=== PATIENT | male | born 1945 | race Caucasian/White ===

== ENCOUNTER 2020-06-25 10:00 | Day surgery (SDC) | payer MEDICARE, BC, SELFPAY ==
[2020-06-25 10:10] VITALS: BP 140/86; PULSE 74; RESP 16; TEMP 36.2; O2SAT 97
[2020-06-25] MEDS: Tropicam./Phenyleph. (1/2.5%) 5 ML BTL OD ×3 (10:41→10:46)
[2020-06-25] MEDS: Tetracaine 0.5% 4 ML BTL OD (12:03)
[2020-06-25] MEDS: Balanced Salt Soln.-PLUS 500 ML BAG (12:04)
[2020-06-25] MEDS: Moxifloxacin-PF 1 MG/ML VIAL (12:05)
[2020-06-25] MEDS: Lidocaine 2% Jelly 6 ML SYR (12:05)
[2020-06-25] MEDS: Lidocaine 1% Pres-Free 5 ML VIAL (12:05)
[2020-06-25] MEDS: Povidone-Iodine Ophth 30 ML BTL (12:07)
--- NOTE | 2020-06-25 12:23 | PDOC.DSDIS_ITS ---
Discharge Plan Discharge Details Attending Provider: Carl Mcclain Primary Care Provider: Magi Muller [place] Meds and New Rx's Prescriptions: No Action atorvastatin 10 mg tablet 10 mg PO DAILY RF: 0 cyanocobalamin (vitamin B-12) [Cyanacobalamin] 1,000 mcg/mL Solution 100 mcg IM DAILY RF: 0 omeprazole 20 mg capsule,delayed release(DR/EC) 20 mg PO DAILY RF: 0 folic acid 1 mg tablet 1 mg PO DAILY RF: 0 irbesartan 150 mg tablet 150 mg PO DAILY RF: 0 Multivitamin 50 Plus Tablet 1 tab PO DAILY RF: 0 cholecalciferol (vitamin D3) [Vitamin D3] 25 mcg (1,000 unit) Tablet 400 unit PO DAILY RF: 0 aspirin 81 mg Capsule,Delayed Release(Dr/Ec) 81 mg PO DAILY RF: 0 cyanocobalamin (vitamin B-12) 100 mcg Tablet 100 mcg PO DAILY RF: 0 Discharge Instructions Stand Alone Forms: Post-op Topical Cataract, Mya Pichardo (ALEXA)
--- NOTE | 2020-06-25 12:26 | ROE_ITS ---
Date of service: 06/25/20 Time of Service: 12:26 Operative Note Operative Note DATE OF PROCEDURE: 06/25/20 PRE-OP DIAGNOSIS: Nuclear/cortical cataract, right eye POST-OP DIAGNOSIS: same PROCEDURE: Cataract extraction using phacoemulsification with intraocular lens implant, right eye SURGEON: Carl Mcclain ANESTHESIA: MAC and local (sub-tenon's anesthetic infiltration) ESTIMATED BLOOD LOSS: 0 PATHOLOGY: none sent COMPLICATIONS: None Patient was transported to: same day Patient's condition: stable Implants: Raheem and Raheem Vision / [employer] Tecnis ZCB00 intraocular lens Indications: Progressive decreased vision due to cataract, right eye Procedure Description: CATARACT SURGERY OPERATIVE REPORT PREOPERATIVE DIAGNOSIS: Nuclear/cortical cataract, right eye POSTOPERATIVE DIAGNOSIS: Same OPERATION: Cataract extraction using phacoemulsification with posterior chamber intraocular lens implant, right eye. IOL: IOL Intensivist/Model: J&J Vision / PAGE Tecnis ZCB00 IOL Power: + 6.5 diopters IOL Serial Number: [id number] Optic Diameter: 6.0mm Haptic/Overall Diameter: 13.0mm PHACO INFO: Isidro Adhesion Wealth Advisor Solutionsurion Vision System with OZil and Active Fluidics Cumulative Dispersed Energy (CDE): 10.19 seconds SURGEON: Carl Mcclain MD, MARIELENA ANESTHESIA: Monitored Anesthesia Care (MAC), with local sub-tenon's anesthetic infiltration COMPLICATIONS: None SPECIMENS: None INDICATIONS FOR PROCEDURE: The patient is a 75-year-old gentleman with history of high myopia who has developed a significant nuclear and cortical cataract of the right eye. The option of cataract surgery was offered to the patient and he felt he was symptomatic enough that he wished to proceed. PROCEDURE: The correct surgical eye was identified and marked as the right eye and the pupil was dilated in the preoperative area using mydriatics and cycloplegics. The dilated pupil size was 7.0 mm. No oral sedation. The patient was brought to the operating room where cardiopulmonary monitoring was instituted and surgical time-out was performed, confirming the correct operative eye and IOL power. Topical anesthesia was administered and ophthalmic povidone-iodine 5% was instilled into the conjunctival fornices. Lidocaine gel was applied to the cornea and the maciej-ocular area was prepped with Betadine 10% solution and draped in the usual sterile fashion for intraocular surgery, including an aperture drape. A Tegaderm transparent film dressing was cut in half and used to cover the lashes and lid margins. Care was taken to sequester the lashes and lid margins under the Tegaderm dressing. A lid speculum was placed between the lids of the operative eye and the Nora-Kathi operating microscope was maneuvered into position. Adi scissors were then used to make a conjunctival buttonhole approximately 6mm posterior to the limbus in the inferonasal quadrant. Blunt dissection was carried out to expose bare sclera, and a blunt-tipped sub-tenon?s anesthesia cannula was introduced and passed posteriorly along the globe where non- preserved plain lidocaine was injected into posterior sub-Tenon?s space. A sideport knife was used to make a paracentesis port inferiortemporally. Intraocular phenylephrine/lidocaine was injected into the anterior chamber. The anterior chamber was then filled with Healon Pro. A 2.4mm keratome knife was used to create a half-thickness groove at the limbus and then to construct a three-plane near-clear corneal tunnel extending 2.0mm into clear cornea in the superiortemporal position. . A flap was raised on the anterior capsule and capsulorhexis forceps were used to complete a continuous curvilinear capsulorhexis of 5.0 mm. The anterior chamber was noted quite deep with a thin capsule. Balanced salt solution was then used to perform cortical cleaving hydrodissection and nuclear hydrodelineation until the lens could be freely rotated within the capsular bag. The lens nucleus was then disassembled and removed within the capsular bag and iris plane using phacoemulsification. Residual cortical material was removed using the I/A handpiece. The posterior capsule was carefully polished to remove as much residual lens epithelial cells as safely possible. The capsular bag was then inflated and the anterior chamber deepened with viscoelastic. The lens implant described above was inserted into the capsular bag using the PAGE [place] Injector. A Kuglen hook was used to di al the IOL into position. Residual viscoelastic was then removed first from posterior to the IOL, then from the anterior chamber using the I/A handpiece. The lens implant was noted to center nicely within the capsular bag. The incisions were stromally hydrated, and the anterior chamber was reformed using BSS. Then 0.5cc of moxifloxacin 1.0mg/ml were injected into the capsular bag and anterior chamber. The incisions were checked with a Weck spear and found to be secure. Several drops of ophthalmic povidone-iodine 5% were then applied to the eye followed by two drops of Imprimis combination prednisolone/moxifloxacin/nepafenac solution. The drapes were removed and a clear plastic protective eye shield was placed over the eye. The patient was then returned to Same Day Surgery in stable condition.
== END 2020-06-25 12:45 ==
LOC: SUR 10:02
PROVIDERS: PCP Nurse Practitioner Family; Visit Provider Ophthalmology
PROC: (CPT 66984; principal; 2020-06-25 13:30)
DX: H25.011 Cortical age-related cataract, right eye (principal); E78.00 Pure hypercholesterolemia, unspecified
CPT/HCPCS: 66984; V2632

== ENCOUNTER 2020-07-09 06:53 | Day surgery (SDC) | payer MEDICARE, BC, SELFPAY ==
[2020-07-09 07:00] VITALS: BP 124/83; PULSE 73; RESP 18; TEMP 36.3; O2SAT 97
[2020-07-09] MEDS: Tropicam./Phenyleph. (1/2.5%) 5 ML BTL OS ×3 (07:00→07:13)
--- NOTE | 2020-07-09 08:18 | PDOC.DSDIS_ITS ---
Discharge Plan Disposition Patient Disposition: HOME Condition: Good Discharge Details Attending Provider: Carl Mcclain Primary Care Provider: Magi Muller [place] Meds and New Rx's Prescriptions: No Action atorvastatin 10 mg tablet 10 mg PO DAILY RF: 0 cyanocobalamin (vitamin B-12) [Cyanacobalamin] 1,000 mcg/mL Solution 100 mcg IM DAILY RF: 0 omeprazole 20 mg capsule,delayed release(DR/EC) 20 mg PO DAILY RF: 0 folic acid 1 mg tablet 1 mg PO DAILY RF: 0 irbesartan 150 mg tablet 150 mg PO DAILY RF: 0 Multivitamin 50 Plus Tablet 1 tab PO DAILY RF: 0 cholecalciferol (vitamin D3) [Vitamin D3] 25 mcg (1,000 unit) Tablet 400 unit PO DAILY RF: 0 aspirin 81 mg Capsule,Delayed Release(Dr/Ec) 81 mg PO DAILY RF: 0 cyanocobalamin (vitamin B-12) 100 mcg Tablet 100 mcg PO DAILY RF: 0 Discharge Instructions Stand Alone Forms: Post-op Topical Cataract, Mya Pichardo (DSU) Discharge Orders Discharge Orders: Discharge Order (Routine); Ordered 07/09/20 Ordered By: Carl Mcclain DS: Diagnosis Discharge Diagnosis (1) Nuclear sclerotic cataract of left eye: Status: Resolved (2) Cortical cataract of left eye: Status: Resolved
[2020-07-09] MEDS: Balanced Salt Soln.-PLUS 500 ML BAG (08:33)
[2020-07-09] MEDS: Lidocaine 1% Pres-Free 5 ML VIAL (08:34)
[2020-07-09] MEDS: Lidocaine 2% Jelly 6 ML SYR (08:34)
[2020-07-09] MEDS: Moxifloxacin-PF 1 MG/ML VIAL (08:35)
[2020-07-09] MEDS: Povidone-Iodine Ophth 30 ML BTL (08:36)
--- NOTE | 2020-07-09 08:57 | ROE_ITS ---
Date of service: 07/09/20 Time of Service: 08:57 Operative Note Operative Note DATE OF PROCEDURE: 07/09/20 PRE-OP DIAGNOSIS: Nuclear/cortical cataract, left eye POST-OP DIAGNOSIS: same PROCEDURE: Cataract extraction using phacoemulsification with intraocular lens implant, left eye SURGEON: Carl Mcclain ANESTHESIA: MAC and local (sub-tenon's anesthetic infiltration) PATHOLOGY: none sent COMPLICATIONS: None Patient was transported to: same day Patient's condition: stable Implants: Raheem and Raheem Vision / [employer] Tecnis ZCB00 Indications: Progressive decreased vision due to cataract, left eye Procedure Description: CATARACT SURGERY OPERATIVE REPORT PREOPERATIVE DIAGNOSIS: Nuclear/cortical cataract, left eye POSTOPERATIVE DIAGNOSIS: Same OPERATION: Cataract extraction using phacoemulsification with posterior chamber intraocular lens implant, left eye. IOL: IOL Agricultural Extension Officer/Model: J&J Vision / PAGE Tecnis ZCB00 IOL Power: + 8.5 diopters IOL Serial Number: [id number] Optic Diameter: 6.0mm Haptic/Overall Diameter: 13.0mm PHACO INFO: Isidro onefinestayurion Vision System with OZil and Active Fluidics Cumulative Dispersed Energy (CDE): 13.42 seconds SURGEON: Carl Mcclain MD, MARIELENA ANESTHESIA: Monitored Anesthesia Care (MAC), with local sub-tenon's anesthetic infiltration COMPLICATIONS: None SPECIMENS: None INDICATIONS FOR PROCEDURE: The patient is a 75-year-old gentleman with history of diminished visual acuity in both eyes secondary to the development of bilateral nuclear and cortical cataract. He has already undergone cataract surgery in his right eye and is doing well postoperatively. He now presents for cataract surgery in the left eye. PROCEDURE: The correct surgical eye was identified and marked as the left eye and the pupil was dilated in the preoperative area using mydriatics and cycl oplegics. The dilated pupil size was 7.0 mm. The patient chose to have no oral sedation. The patient was brought to the operating room where cardiopulmonary monitoring was instituted and surgical time-out was performed, confirming the correct operative eye and IOL power. Topical anesthesia was administered and ophthalmic povidone-iodine 5% was instilled into the conjunctival fornices. Lidocaine gel was applied to the cornea and the maciej-ocular area was prepped with Betadine 10% solution and draped in the usual sterile fashion for intraocular surgery, including an aperture drape. A Tegaderm transparent film dressing was cut in half and used to cover the lashes and lid margins. Care was taken to sequester the lashes and lid margins under the Tegaderm dressing. A lid speculum was placed between the lids of the operative eye and the Nora-Kathi operating microscope was maneuvered into position. Adi scissors were then used to make a conjunctival buttonhole approximately 6mm posterior to the limbus in the inferonasal quadrant. Blunt dissection was carried out to expose bare sclera, and a blunt-tipped sub-tenon?s anesthesia cannula was introduced and passed posteriorly along the globe where non- preserved plain lidocaine was injected into posterior sub-Tenon?s space. A sideport knife was used to make a paracentesis port superior/superiortemporally. Intraocular phenylephrine/lidocaine was injected into the anterior chamber. The anterior chamber was then filled with Healon Pro. A 2.4mm keratome knife was used to create a half-thickness groove at the limbus and then to construct a three-plane near-clear corneal tunnel extending 2.0mm into clear cornea in the temporal position. . A flap was raised on the anterior capsule and capsulorhexis forceps were used to complete a continuous curvilinear capsulorhexis of 5.0 mm. Apligraf to be quite thin with a deep anterior chamber. Balanced salt solution was then used to perform cortical cleaving hydrodissection and nuclear hydrodelineation until the lens could be freely rotated within the capsular bag. The lens nucleus was then disassembled and removed within the capsular bag and iris plane using phacoemulsification. Residual cortical material was removed using the 45-degree angled silicone I/A tip with 0.3mm port. The posterior capsule was carefully polished to remove as much residual lens epithelial cells as safely possible. The capsular bag was then inflated and the anterior chamber deepened with viscoelastic. The lens implant described above was inserted into the capsular bag using the PAGE [place] Injector. A Kuglen hook was used to dial the IOL into position. Residual viscoelastic was then removed first from posterior to the IOL, then from the anterior chamber using the I/A handpiece. The lens implant was noted to center nicely within the capsular bag. The incisions were stromally hydrated, and the anterior chamber was reformed using BSS. Then 0.5cc of moxifloxacin 1.0mg/ml were injected into the capsular bag and anterior chamber. The incisions were checked with a Weck spear and found to be secure. Several drops of ophthalmic povidone-iodine 5% were then applied to the eye followed by two drops of Imprimis combination prednisolone/moxifloxacin/nepafenac solution. The drapes were removed and a clear plastic protective eye shield was placed over the eye. The patient was then returned to Same Day Surgery in stable condition.
== END 2020-07-09 09:14 | disposition home or self-care (01) ==
PROVIDERS: PCP Nurse Practitioner Family; Visit Provider Ophthalmology
PROC: (CPT 66984; principal; 2020-07-09 09:30)
DX: H25.12 Age-related nuclear cataract, left eye (principal); K21.9 Gastro-esophageal reflux disease without esophagitis
CPT/HCPCS: 66984; V2632

== ENCOUNTER → 2024-03-04 08:11 | Outpatient (BNVA) | payer MEDICARE, BC, SELFPAY | PROVIDERS: PCP Physician Assistant; Referring Provider Physician Assistant; Visit Provider Podiatrist | DX: L84 Corns and callosities (principal); M79.672 Pain in left foot; M20.42 Other hammer toe(s) (acquired), left foot | CPT/HCPCS: 17110; 99203 ==

== ENCOUNTER → 2024-03-17 02:16 | Outpatient (CLI) | payer MEDICARE, BC, SELFPAY ==
--- NOTE | 2024-03-17 08:23 | DI.RAD_ITS ---
Exam(s) XR FOOT LT COMPLETE EXAM: XR FOOT LT COMPLETE CLINICAL HISTORY: Left toe pain,HAMMERTOE LT FOOT, M20.42. TECHNIQUE: 2D digital imaging was performed. Three views. COMPARISON: No exams were available for comparison FINDINGS: BONES: No acute fracture is present. No bony destructive lesion is seen. JOINTS: No dislocation present. Minimal degenerative changes. SOFT TISSUE: Normal. IMPRESSION: Minimal degenerative changes. DATA REPOSITORY: RADIATION DOSE DELIVERED:
== END ==
PROVIDERS: PCP Physician Assistant; Visit Provider Podiatrist
DX: M20.42 Other hammer toe(s) (acquired), left foot (principal)
CPT/HCPCS: 73630

== ENCOUNTER → 2024-04-08 08:44 | Outpatient (BNVA) | payer MEDICARE, BC, SELFPAY | PROVIDERS: PCP Physician Assistant; Referring Provider Physician Assistant; Visit Provider Podiatrist | DX: M20.42 Other hammer toe(s) (acquired), left foot (principal); L84 Corns and callosities; M79.672 Pain in left foot; Z01.818 Encounter for other preprocedural examination | CPT/HCPCS: 99214 ==

== ENCOUNTER 2024-04-08 16:23 | Outpatient (CLI) | payer MEDICARE, BC, SELFPAY ==
[2024-04-08 10:35] LABS: Abs Immature Grans 0.03 10^3/uL (0.0-0.06); Absolute Basophil Count 0.03 10^3/uL (0.0-0.2); Absolute Eosinophil Count 0.21 10^3/uL (0.0-0.7); Absolute Lymphocyte Count 1.37 10^3/uL (1.2-3.4); Absolute Monocyte Count 0.63 10^3/uL (0.1-0.8); Absolute Neutrophil Count 4.41 10^3/uL (1.2-6.7); Basophils % 0.4 %; Eosinophils % 3.1 %; HCT 49.1 % (40.0-50.0); HGB 16.4 g/dL (13.5-17.5); Immature Grans % 0.4 %; Lymphocytes % 20.5 %; MCH 32.5 pg (27.0-33.0); MCHC 33.4 % (32.0-36.0); MCV 97 fL (80-95); MPV 10.9 fL (8.0-11.0); Monocytes % 9.4 %; Neutrophils % 66.2 %; Platelet Count 184 10^3/uL (130-400); RBC 5.04 10^6/uL (4.36-5.78); RDW 12.1 % (11.8-14.1); RDW-SD 43.4 fL; WBC 6.68 10^3/uL (4.4-10.8)
[2024-04-08 10:54] LABS: ALT 72 U/L (16-63); AST 31 U/L (15-37); Albumin 3.6 g/dL (3.4-5.0); Alkaline Phosphatase 100 U/L (46-116); Anion Gap 11.8 mmol/L (3-11); BUN 14 mg/dL (7-18); Bilirubin, Total 0.48 mg/dL (0.2-1.0); CO2 23.2 mmol/L (21.0-32.0); Calcium 9.7 mg/dL (8.5-10.1); Chloride 106 mmol/L (98-107); Estimated GFR 75.61 (mL/min/1.73m2); Glucose 100 mg/dL (74-106); Potassium 4.1 mmol/L (3.5-5.1); Sodium 141 mmol/L (136-145)
--- OUTSIDE RECORDS SUMMARY | 2024-04-08 16:27 | XMS_ITS | Encounter Summary ---
Author Organization [facility] [place] [address] Care Team Providers Care Economics Teacher Name Role Phone Nick Woodard MD Primary Care Provider [phone] Encounter Details Date Type Department Care Team (Late st Contact Info) Description 04/07/2014 11:00 AM EDT [place] [phone] Benign neoplasm of prostate (Primary Dx); Elevated PSA Social History Tobacco Use Types Packs/Day Years Used Date Smoking Tobacco: Former Cigarettes Q uit: 02/20/1976 Smokeless Tobacco: Never Alcohol Use Standard Drinks/Week Comments Yes 7 (1 standard drink = 0.6 oz pur e alcohol) Sex and Gender Information Value Date Recorded Sex Assigned at Male 02/15/2021 9:07 AM EDT Gender Identity Male 02/15/2021 9:07 AM EDT Sexual Orientation Straight 02/15/2021 9: 07 AM EDT documented as of this encounter Last Filed Vital Signs Vital Sign Reading Time Taken Comments Blood Pressure 118/80 04/07/2014 10:57 AM EDT Pulse - - Temperature - - Respiratory Rate 16 04/07/2014 10:57 AM EDT Oxygen Saturation - - Inhaled Oxygen Concentration - - Weight 93 kg (205 lb) 04/07/2014 10:57 AM EDT Height 175.3 cm (5' 9) 04/07/2014 10:57 AM EDT Body Mass Index 30.27 04/07/2014 10:57 AM EDT documented in this encounter Progress Notes * Leno Ellis, KOKO - 04/07/2014 11:28 AM EDT Patient presents today for a voiding trial and catheter removal s/p LAPAROSCOPIC PROSTATECTOMY, ROBOTICS ASSISTED. The patient was given Ciprofloxacin 500mg 1 by mouth. All incisions well approximated. No signs of infection noted. Procedure: 85ml normal saline instilled via rivera catheter. Balloon deflated. Rivera gently removed. Patient voided 85 ml's. FOS good. Good control. Kegals practiced at this time. All instructions and literature reviewed with patient. Patient verbalized understanding of instructions. Supplies given: 2 mens guard pads and 2 mens guard depends underwear. PVR: 00cc measured in the supine position with the bladder scanner shortly after the patient had voided. LENO ELLIS LPN documented in this encounter Plan of Treatment Upcoming Encounters Date Type Department Care Team (Late st Contact Info) Description 06/17/2024 10:20 AM EDT Office Visit Dermatology at [facility] [address] [place] [address] Nick Whiteside MD [facility] [address] [place] [address] documented as of this encounter Results * PSA (07/14/2014 10:04 AM EST) Prostate Specific Antigen (Ultrasensitiv e) <0.03 0.00 - 4.00 ng/mL SHEELA LEHMAN Blood specimen (specimen) 07/14/2014 10:04 AM EST 07/14/2014 10:37 AM EST Narrative Resulting Agency Comment Spec In Lab Donaldo Paulson MD CHEMISTRY ORDERABLES [facility] [place] documented in this encounter Visit Diagnoses Diagnosis Benign neoplasm of prostate- Primary Elevated PSA Elevated prostate specific antigen (PSA) documented in this encounter Care Teams Economics Teacher Relationship Specialty Start Date End Date Nick Woodard MD [address] [place] [phone] PCP - General 07/26/10 11/19/22 documented as of this encounter
--- OUTSIDE RECORDS SUMMARY | 2024-04-08 16:27 | XMS_ITS | Encounter Summary ---
Author Organization [facility] [place] [address] Care Team Providers Care Field Service Tech Name Role Phone Nick Woodadr MD Primary Care Provider [phone] Encounter Details Date Type Department Care Team (Late st Contact Info) Description 12/11/2014 [place] [address] Donaldo Paulson MD [facility] [place] [address] Elevated PSA Social History Tobacco Use Types [...] AM EDT documented as of this encounter Plan of Treatment Upcoming Encounters Date Type Department Care Team (Late st Contact Info) Description 06/17/2024 10:20 AM EDT Office Visit Dermatology at [facility] [address] [place] [phone] Nick Whiteside MD [facility] [address] [place] [address] documented as of this encounter Results * PSA (12/14/2014 12:08 PM EDT) Prostate Specific Antigen (Ultrasensitiv e) <0.03 0.00 - 4.00 ng/mL SHEELA ARCHIEAIRAM Blood specimen (specimen) 12/14/2014 12:08 PM EDT 12/14/2014 12:36 PM EDT Narrative Resulting Agency Comment Spec In Lab Donaldo Paulson MD CHEMISTRY ORDERABLES [facility] documented in this encounter Visit Diagnoses Diagnosis Elevated PSA Elevated prostate specific antigen (PSA) documented in this encounter Care Teams Field Service Tech Relationship Specialty Start Date End Date Nick Woodard MD [address] [place] [phone] PCP - General 07/26/10 11/19/22 documented as of this encounter
--- OUTSIDE RECORDS SUMMARY | 2024-04-08 16:27 | XMS_ITS | Encounter Summary ---
Author Organization [facility] [place] [address] Care Team Providers Care Technical Account Executive Name Role Phone Nick Woodard MD Primary Care Provider [phone] Encounter Details Date Type Department Care Team (Late st Contact Info) Description 05/03/2021 Telephone Dermatology at [facility] [address] [place] [phone] Armando Alvaerz MD [facility] [address] [place] [address] Social History Tobacco Use Types Packs/Day Years [...] AM EDT documented as of this encounter Miscellaneous Notes * Telephone Encounter - Arlene Lal LPN - 05/03/2021 8:52 AM EDT Mohs consultation and preoperative note (H&P) Patient Name: Sai Bailey Age: 76 y.o. Date of : 1945 Today's Date: 05/03/2021 REFERRING PROVIDER: Yoly Gomez MD CC: Mohs micrographic surgery for treatment of a cutaneous tumor HPI: Sai Bailey is a 76 y.o. male presenting for biopsy-proven Basal cell carcinoma, nodular type, ??present at the deep specimen edge location on the Right Forehead. The dermatologic preoperative information sheet was reviewed with pertinent positive and negative as below. DERMATOLOGIC PRE-OPERATIVE EVALUATION AND REVIEW OF SYSTEMS Has had his Vaccine History of Mohs surgery-No Pacemaker/Defibrillator-No Joint replacement or other implantable devices (e.g. Cochlear implant)-No Do you take a blood thinner- Yes ASA 81mg History of organ transplant-No History of artificial valve or stroke-No History of liver disease or bleeding disorder -No Do you have any medical problems that may affect your upcoming surgery-No Do you have any concerns regarding your upcoming surgery-No We ask patients to discontinue Fish oil/Multivitamin/Vit E/?? supplements and natural medicines not prescribed by a physician 1 week prior to surgery. SOCIAL HISTORY: Makes Own Decisions -Yes Hearing aid or other devices: No Relevant travel history or future plans: Tobacco use (amount per day, type of tobacco):No Do you have any physical limitations that may affect your surgery-No ALLERGIES: Allergies reviewed MEDICATIONS: Medications reviewed documented in this encounter Plan of Treatment Upcoming Encounters Date Type Department Care Team (Late st Contact Info) Description 06/17/2024 10:20 AM EDT Office Visit Dermatology at [place] [address] [place] [address] Nick Whiteside MD [facility] [place] [address] documented as of this encounter Visit Diagnoses Not on filedocumented in this encounter Care Teams Technical Account Executive Relationship Specialty Start Date End Date Nick Woodard MD [address] [place] [phone] PCP - General 07/26/10 11/19/22 documented as of this encounter
--- OUTSIDE RECORDS SUMMARY | 2024-04-08 16:27 | XMS_ITS | Clinical Summary ---
Author Organization [facility] Address [facility] [place] [address] Care Team Providers Care Mission Systems Engineer Name Role Phone Luis Carlos Del Real MD Primary Care Provider [phone] Allergies No known active allergies Medications Medication Sig Dispensed Refills Start Date End Date Status irbesartan (AVAPRO) 150 mg tablet Take 150 mg by mouth once. Active omeprazole (PRILOSEC) 20 mg capsule Take 20 mg by mouth daily. Active atorvastatin (LIPITOR) 10 mg tablet Take 10 mg by mouth daily. Active folic acid (FOLVITE) 1 mg tablet Take 1 mg by mouth daily. Active aspirin 81 mg EC tablet Take 81 mg by mouth daily. Active cyanocobalamin 1,000 mcg tablet Take 1,000 mcg by mouth daily. Active multivitamin capsule Take 1 capsule by mouth daily. Active cholecalciferol, Vitamin D3, (VITAMIN D) 1,000 unit Tab tablet Take by mouth daily. Active mirabegron (Myrbetriq) 50 mg Tablet Sustained Release 24 hr Take by mouth. Active Social History Tobacco Use Types Packs/Day Years [...] Orientation Straight 02/15/2021 9: 07 AM EDT Last Filed Vital Signs Vital Sign Reading Time Taken Comments Blood Pressure 117/70 04/20/2015 11:48 AM EDT Pulse 65 04/20/2015 11:48 AM EDT Temperature 37.1 ??C (98.8 ??F) 03/31/2014 9:48 AM ED T Respiratory Rate 16 04/07/2014 10:57 AM EDT Oxygen Saturation 99% 12/14/2014 1:13 PM EDT Inhaled Oxygen Concentration - - Weight 95.3 kg (210 lb) 04/20/2015 11:48 AM EDT Height 175.3 cm (5' 9) 04/20/2015 11:48 AM EDT Body Mass Index 31.01 04/20/2015 11:48 AM EDT Plan of Treatment Upcoming Encounters Date Type Department Care Team (Late st Contact Info) Description 06/17/2024 10:20 AM EDT Office Visit Dermatology at [facility] [address] [place] [phone] Nick Whiteside MD [facility] [address] [place] [address] Health Maintenance Due Date Last Done Comments Tdap adult 1962 Tetanus vaccine 1962 Zoster vaccine (1 of 2) 1993 Advance Directive 1998 Pneumoccocal Vaccine: 65+ (1 of 1 - PCV) 02/25/2008 Covid-19 Vaccine (4 - season) 2023 07/09/2021, 11/15/2020, 10/18/2020 Influenza (Flu) vaccine (1 o f 1 - Influenza standard series) 05/04/2024 Advance Directives * Full Code (Latest Code Status on File) Date Activated Date Inactivated Comments 03/30/2014 1:50 PM 03/31/2014 1:55 PM Question Answer Comments Order Status: Initial Order Does patient have decision m aking capacity? Yes, Order is based on Patients wishes. Care Teams Mission Systems Engineer Relationship Specialty Start Date End Date Luis Carlos Del Real MD [address] [place] [address] PCP - General Internal Medicine 11/20/22
--- OUTSIDE RECORDS SUMMARY | 2024-04-08 16:27 | XMS_ITS | Encounter Summary ---
Author Organization [facility] [place] [address] Care Team Providers Care Boiler Control Room Operator Name Role Phone Luis Carlos Del Real MD Primary Care Provider Encounter Details Date Type Department Care Team (Latest Contact Info) Description 01/20/2023 Travel Social History Tobacco Use Types Packs/Day Years [...] 10:20 AM EDT Office Visit Dermatology at [facility] [address] [place] [address] Nick Whiteside MD [facility] [address] [place] [address] documented as of this encounter Visit Diagnoses Not on filedocumented in this encounter Care Teams Boiler Control Room Operator Relationship Specialty Start Date End Date Luis Carlos Del Real MD [address] [place] [address] PCP - General Internal Medicine 11/20/22 documented as of this encounter
--- OUTSIDE RECORDS SUMMARY | 2024-04-08 16:27 | XMS_ITS | Encounter Summary ---
Author Organization [facility] [place] [address] Care Team Providers Care Ship'S Cook Name Role Phone Luis Carlos Del Real MD Primary Care Provider [phone] Encounter Details Date Type Department Care Team (Latest Contact Info) Description 04/03/2023 Travel Social History Tobacco Use Types Packs/Day [...] 10:20 AM EDT Office Visit Dermatology at [facility] [address] [place] [address] Nick Whiteside MD [facility] [address] [place] [address] documented as of this encounter Visit Diagnoses Not on filedocumented in this encounter Care Teams Ship'S Cook Relationship Specialty Start Date End Date Luis Carlos Del Real MD [address] [place] [address] PCP - General Internal Medicine 11/20/22 documented as of this encounter
--- OUTSIDE RECORDS SUMMARY | 2024-04-08 16:27 | XMS_ITS | Encounter Summary ---
Author Organization [facility] [place] [address] Care Team Providers Care Chief Hydroelectric Station Operator Name Role Phone Luis Carlos Del Real MD Primary Care Provider [phone] Encounter Details Date Type Department Care Team (Latest Contact Info) Description 01/26/2023 Travel Social History Tobacco Use Types Packs/Day [...] 10:20 AM EDT Office Visit Dermatology at [facility] [address] [place] [address] Nick Whiteside MD [facility] [address] [place] [place] [address] documented as of this encounter Visit Diagnoses Not on filedocumented in this encounter Care Teams Chief Hydroelectric Station Operator Relationship Specialty Start Date End Date Luis Carlos Del Real MD [address] [place] [address] PCP - General Internal Medicine 11/20/22 documented as of this encounter
--- OUTSIDE RECORDS SUMMARY | 2024-04-08 16:27 | XMS_ITS | Encounter Summary ---
Author Organization [facility] [place] [address] Care Team Providers Care Art Museum Aide Name Role Phone Nick Woodard MD Primary Care Provider [phone] Reason for Visit * Consultation (Routine) - Closed Specialty Diagnoses / Procedures Referred By Lupillo montana Referred To Contact Dermatology Diagnoses Basal cell carcinoma of face Yoly Gomez MD [facility] DR [facility] [place] [address] Armando Alvarez MD [facility] DR RAJESH [place] [address] Referral ID Status Reason Start Date Expiration Date V isits Requested Visits Authorized [id number] Closed Consult, Test & Treat 03/01/2021 03/01/2022 1 1 Encounter Details Date Type Department Care Team (Latest Contact Info) Description 05/05/2021 11:00 AM EDT Procedure visit Dermatology at [facility] [address] [place] [address] Armando Alvarez MD [facility] DR RAJESH [place] [address] Basal cell carcinoma (BCC) of forehead Social History Tobacco Use Types Packs/Day Years [...] AM EDT documented as of this encounter Patient Instructions * Patient Instructions* Zechariah Gonzalez, ASSISTANT DIRECTOR OF NURSING - 05/05/2021 11:00 AM EDT Your staff surgeon today was Armando Alvarez MD. Your wound(s) was repaired by [id number] stitches called a primary repair. You do not need to come back for suture removal because only absorbable sutures were used today. If the absorbable sutures bother your skin or do not absorb after 2 weeks, you may call us to remove them for you. Instructions are as below. Please keep this as a reference: Wound Care For wounds closed with absorbable-only stitches: ??? Gently remove your initial bandage (after 48 hours from surgery) and begin wound care as below. ??? If your initial bandage only lasts 24 hours (for example, falls off sooner), this is okay. Resume your wound care and bandaging instructions as below. ??? Change your bandage once a day (and whenever it becomes wet or soaks through). DO WOUND CARE FOR ONE WEEK. ??? For bandage changes: o Wash hands with soap and water, or use gloves that you can purchase a local pharmacy or drug store. o Clean the surgical area with cotton-tipped swabs or gauze dipped in soapy water (recommend liquidsoap in clean room temperature water). Do not scrub the area or put direct shower water pressure onto your wound. It is okay to allow soapy water to run over your wound in the shower. o If you cannot remove crusted areas, you may soak with wet gauze first for 15 to 20 minutes to help soften it. o Pat the area dry with clean gauze or cotton swabs. Do not rub. o Use a cotton swab to apply a generous layer of petroleum jelly over the incision lines and any open-wound areas. o Cover with clean nonstick gauze or other nonstick dressing, such as Telfa. This may be purchased over the counter at a drug store. Secure with paper tape or bandage. Band-aids are okay, but typically have more adhesive that can irritate the skin compared to paper tape. o Discontinue wound care after 7 days. If any portion of the incision was left open to heal on its own, continue to apply Vaseline daily until healed. o Allow the absorbable stitches to heal. If the top stitches that are absorbable are irritating your skin, you may call us to have them removed. Otherwise, they will be absorbed naturally in approximately 2 weeks. It may absorb as quickly as 4 days. o Keep in mind that if you do not want to use a bandage at all due to difficulty, allergies, irritation of skin, cost, time, or inconvenience --- you can certainly avoid bandages altogether. However,it is imperative that you continue with topical petrolatum ointment or Aquaphor (plain, fragrance-free). This may need to be applied several times daily if it gets wiped off, washed off, or dries out. Things to purchase for wound care: -Nonstick gauze -A tube or tub of petrolatum jelly (fragrance-free, no dye, not lotion) -paper tape -cotton swabs -gloves (optional) -Dial or other antibacterial liquid soap After Surgery 1. If you are a tobacco user please attempt to decrease the amount of tobacco products used following surgery for 1-2 weeks. 2. Limit alcohol intake to one drink per day for the next 3 days. 3. Do not participate in athletic activities for 5-7 days, unless you were told a different timeline during your visit. Athletic activity is a relative term, but this is considered to be anything that could potentially raise your heartrate or blood pressure. Elevating your heart rate and blood pressure increases the risk of swelling, bleeding, wound opening, and it could lead to worse scarring. Walking at a leisurely pace is fine for most people, but not if you are walking for the purpose of exercise. When in doubt, take it easy or call us. 4. Do not lift anything heavier than 10 pounds for 5-7 days postoperatively. 5. Some care consultant may need to be delayed or delegated such as vacuuming, mowing the lawn, snow shoveling, or caring for young children that need to be carried/lifted. Working any major muscle groups increases your heart rate and can increasing bleeding. 6. Avoid swimming, hot tubs, and direct water pressure for 3 weeks after surgery. You may shower, however, once your initial bandage comes off in 48 hours. 7. Avoid antibiotic ointments such as triple antibiotic creams. Stick with your wound care instructions, please. 8. Whenever possible, it is helpful to take photographs with your camera or cell phone of any problems or concerns you see with your wound. We often ask for photos when you call with questions. 9. Starting 2 months following surgery, you can begin firm massage to any areas of firm scar along your incision to soften the scar and reduce bumpiness. Do this 3 times per day, 3 minutes each time.Do not start massage before 2 months. 10. Your wound will appear almost completely healed soon after sutures are removed (about 1 week), but incisions can remain bright red for several weeks. Then the scarring and healing process continues under the skin for 6 months until to 2 years. The scar may become less red, less firm, and more subtle during this time; please note that the rate of improvement varies depending on the person. Most redness, discoloration, bumpiness resolves by 6 months, and most patients will look presentable within a few weeks after surgery. 11. Keep your follow-up appointments and make sure to continue to have your skin checked, as often as is recommended by your automobile damage appraiser, for new skin cancers. This is once per year for most patients. 12. Your can expect your scar to be red for several weeks with gradual fading of the redness. Your scar will also be raised and lumpy until the dissolvable sutures under the skin get absorbed by yourbody which can take 3-4 months. The scar will flatten eventually. a. If you have a skin condition called rosacea, the redness can last long-term, or you can get an increased appearance of red vessels to the skin. The appearance of vessels slightly improves, but tends to respond well to laser treatments. 13. Occasionally, about 20% of the time on the face, the stitches under the skin can spit out of the incision to the surface. It can start out looking like a pimple or blemish directly on your incision. Sometimes you can feel something poking through the incision. it can look also minic a small area of infection, so please let us know before you go to another provider for antibiotics. This means that the suture may need to be trimmed or removed when you return for your wound check. This typically occurs a few weeks after surgery if it does occur. 14. To optimize your scar, and best cosmetic result, please avoid direct sunlight to your incision for the first 6 months following surgery. UV ray exposure to your incision may cause the redness to last longer, or to cause permanent darkening of your scar. You can avoid sun by covering your incision with a bandage when outdoors, wearing broad-rimmed hats, and wearing SPF 30 to 50 sunscreen (broad spectrum). 15. Any time you have skin surgery or any type of surgery, you can experience mild sensation loss (numbness) in the area of surgery. Massage starting at 8 weeks after surgery can help. 16. Swelling and bruising is common, and expected, especially if your surgery site was on the forehead, cheeks, temples, nose, or eyelids. . Sometimes it can be quite profound, where the eyelids swell shut, or getting black eyes. This is especially true if you are on blood thinners such as aspirin. Swelling and bruising will peak at about 48 hours after surgery. Bruising and swelling will gradually resolve. You can use ice packs or a bag of frozen peas for 15-20 minutes, 20 minutes off, up to3-4 times daily to areas of swelling on the face. Use caution not to put the icy item directly ontoyour incision, or directly in contact with your skin as this can damage skin. Avoid prolonged use more than 20 minutes. The best way to use ice packs is over the bandage, or using a light cloth/papertowel barrier between the ice pack and your skin. You can ice for as many days as needed until swelling has resolved. Eyelid and lip swelling is typically the last type of swelling to resolve. Antibiotics: If you were given antibiotic prescription, it is important to start them the evening of your surgery date. However, most patients do not need antibiotics after surgery. For pain: Most patients of different ages do not require pain medications. If you do feel soreness, throbbingor sharp pains, start by taking over the counter extra strength acetaminophen (up to 3000 mg in a 24 hour period). Generally, we like you to avoid NSAIDS (non-steroid anti-inflammatory drugs such as ibuprofen) for the first 48 hours after surgery as this can increase risk of bleeding. However, if acetaminophen is not helping with pain, you can alternate acetaminophen with iburpofen or other NSAID. Ice packs over your bandage without getting your bandage wet can also help with pain and swelling.Frozen peas work well as ice packs. THIS IS AN EXAMPLE OF A PAIN TREATMENT SCHEDULE: 1) You can take 500 mg acetaminophen one tablet by mouth at 6:00pm. This is over the counter. 2) You can take 400 mg of ibuprofen two hours later, at 8:00 pm, or other NSAID such as naproxen, as long as it does not interact with your other medications and your other doctors have not told you to avoid this. This is over the counter. Check to see how many milligrams (mg) each of your ibuprofen tablets are. Most of the time, ibuprofen comes in 200 mg tablets, so 400 mg would mean taking two of these tablets or capsules. 3) You can take 500 mg of acetaminophen at 10:00 pm. Keep track of your total acetaminophen in a 24hour period as your maximum should be 3000 mg total in a 24 hour period of this medication. 4) At midnight, you can take another 400 mg of ibuprofen. 5) you can continue on this schedule over the next 2 days, making sure to keep tabs of your total acetaminophen. If you are still in pain after trying the above, please call us. When to call your surgeon: ??? Fever of 100.4 degrees Fahrenheit or higher ??? Bleeding not controlled with direct firm pressure to your wound. Bleeding is most common in thefirst 48 hours. ??? Pain that is worsening and not relieved by over the counter medications such as acetaminophen (up to 3000 mg in a 24 hour period) ??? Wound reopening after stitching ??? Pus or bad odor from your wound ??? Worsening redness and warmth around your wound ??? If you think your surgery site is infected, please call us before seeking care or antibiotics from other providers ??? Please call us before seeking care in an emergency room or primary care. ??? If you do call, please leave your full name, phone number, date of , date of surgery, and medical record number if you have it. If after hours, please call the geophysical operator or [phone] and ask for the automobile damage appraiser on-call. If you have any non-urgent questions or concerns, please feel free to call my office or contact me through our patient portal, [email or web address] ([email or web address]), at [email or web address] How to contact us during business hours Dermatology at [facility]: Mohs scheduling or Mohs follow-up appointments: [phone] documented in this encounter Progress Notes * Armando Alvarez MD - 05/05/2021 11:00 AM EDT Images from the original note were not included. Summary of Procedure(s): Site: right forehead Tumor Type: Basal Cell Carcinoma, nodular Stages to clear tumor: 1 Repair: Intermediate linear closure Images: The patient was asked to call with any issues and is aware that I am available 26/03 should questions arise. Armando Alvarez MD Mohs Micrographic Surgery and Dermatologic Oncology Department of Dermatology Please note that I have reviewed the preoperative checklist from today's nursing visit including relevant social history and medications. I have reviewed the preoperative photos if available and the biopsy report. VITAL SIGNS: There were no vitals taken for this visit. PHYSICAL EXAMINATION: General: patient is awake, alert, oriented and in no acute distress. Skin: Focused examination of surgical site(s) performed which shows a well healed biopsy site. PHYSICIAN REVIEW OF REPORTS, RECORDS, IMAGES: 1) The accompanying pathology report(s) associated with aforementioned biopsy slide(s) were/was also reviewed. Assessment: Sai Bailey is a 76 y.o. male presenting for: 1. Biopsy-proven basal cell carcinoma, nodular, located on the right forehead. Plan: 1. Findings from the biopsy report, today's clinical exam, and other pertinent details were reviewed with patient today. All questions were answered. 2. Discussed treatment options based on the above findings. We recommended Mohs micrographic surgery for treatment of this tumor. Mohs micrographic surgery was indicated due to patient, site and/or tumor characteristics (see operative report for specific indication). 3. We discussed risks, benefits, and alternative treatment options to the Mohs micrographic surgeryprocedure and pertinent information including but not limited to the following: ?? Risks include bleeding, infection, scar, recurrence, incomplete tumor removal or inability to cure with surgery alone if the tumor features are more aggressive than the initial pathology indicates. Occasionally, additional adjuvant treatments may be recommended. Additional risks include large wound, prolonged wound and healing, pain, swelling, bruising, increased appearance of vessels or worsening erythema of baseline skin; more rarely risks include damage to underlying structures such as nerves, cartilage, or muscle which could lead to temporary or permanent loss of sensation or motor function. ?? Benefit is precise tumor removal ?? If reconstruction is performed, it is specific to the patient and defect. ?? Discussed that the shape, size, depth of the wound is often not known until the tumor is clearedand thus the reconstruction options are sometimes not known until after tumor clearance. Occasionally, referrals to other providers may be recommended for reconstruction based on patient preference and need. ?? Reviewed the pros and cons of common reconstructions used for this tumor type, size, and location, and that reconstruction may lead to change in appearance. ?? Natural history of scar was discussed, including that the scar will continue to mature for 1-2 years. Recommended avoidance of special ointments or scar creams, and avoidance of direct sun exposure to the scar for optimal recovery. ?? Reviewed that there are some aspects of cosmesis that are dependent on patient's characteristicssuch as age, skin laxity/texture factors, inflammatory skin diseases such as rosacea, prior surgery/radiation, degree of actinic damage, smoking status, strength of the patient's immune system, diligent wound care, medications, and genetics. ?? Having Mohs surgery may lead to physical limitations for optimal healing, such as restricted physical activity and heavy lifting. 4. The nature of sun-induced photo-aging and skin cancers was discussed. Recommended sun avoidance when possible, especially peak hours of sun 10 am to 2pm, protective clothing such as wide-brimmed hats and long-sleeved clothing, and the use of SPF broad-spectrum sunscreen SPF 50 or higher. 5. Signs and symptoms of skin cancer reviewed. Patient to report any new, changing, or symptomatic lesions and follow up with his or her automobile damage appraiser or other skin provider. 6. Discussed avoiding direct sun exposure to scars for best cosmetic result. Note initiated by EVELYN Higgins CMA has performed the documentation for this encounter in the presence of and acting as a scribe for Dr. Alvarez. I performed the above scribed service and agree with the accuracy of the documentation in this encounter. Reviewed and signed by: Armadno Alvarez MD Dermatology [facility] * Armando Alvarez MD - 05/05/2021 11:00 AM EDT Mohs micrographic Surgery Operative Report Patient name: Sai Bailey : 1945 Date: 05/05/2021 Staff Surgeon: Armando Alvarez MD Nursing/Casting Technician(s): Mabel Diez RN, Chelsey Cordon [facility], Arlene Lal [employer] BLOCK[employer], Zechariah Gonzalez ASSISTANT DIRECTOR OF NURSING, Deepika Alford CMA, Tamika Buchanan RN Shank Faker (s): Ale Irwin Pre-operative diagnosis: Basal Cell Carcinoma, nodular Post-operative diagnosis: same as above Location/Site: right forehead Procedure: Mohs micrographic surgery Indication(s) for Mohs micrographic surgery: Anatomic location for tissue conservation Stages: 1 Preoperative size of tumor: 0.5 x 0.5 cm Stage I The nature and purpose of the procedure, associated risks, possible consequences and complications,and alternative forms of treatment were explained in detail. We reviewed the possible repairs basedon the clinical appearance of tumor but discussed that often the repair options may not be known until the tumor has anthony extirpated. Informed consent and permission to take photographs were obtained. The site was confirmed with the patient/authorized car sales representative/referring physician and/or a photograph form time of biopsy. A pre-operative time-out (procedural pause) was conducted with no unresolved discrepancies noted. Local anesthesia was obtained with 1% lidocaine with 1:100,000 epinephrine. The surgical site was prepped and draped in the usual sterile manner. With all visible gross tumor completely excised, the borders of the tumor and 4 mm margins were excised as a complete layer. Hemostasis was achieved by electrocoagulation. The excised tissue was oriented and divided into 2 sections, chromacoded, and submitted for frozen sections. The patient tolerated the procedure well and without complications. On microscopic evaluation of the frozen sections, no residual tumor was identified on the deep or outer border of the sections. The final size of the defect after complete tumor removal was 1.3 x 1.2 cm, extending to level of subcutaneous tissue. Armando Alvarez MD Mohs Micrographic Surgery and Dermatologic Oncology Department of Dermatology [address] [place] [address] Repair Operative Report Clinical Diagnosis: 1.3 x 1.2 cm surgical defect secondary to Mohs microscopically controlled excision Location/Site: right forehead Indication: repair of wound for anatomic/functional buddhist Procedure: Intermediate linear closure of Mohs defect Billiard Parlor Manager: Zechariah Gonzalez CMA Due to the size and location of the defect resulting from the complete removal of the tumor, the postoperative risk of hemorrhage, infection, and the possibility of serious deformity from scarring, and in order to restore proper function and prevent loss of function, the defect was closed in the following manner. The nature and purpose of the procedure, associated risks, possible consequences, complications andalternative methods of treatment were explained to the patient in detail. An informed consent was obtained. The operative site was anesthetized with 1% lidocaine with 1:100,000 epinephrine. The site was prepped and draped in the usual sterile manner. Moderate undermining of the surrounding tissue was performed for tension free closure as necessary and redundant tissue excised. The deep tissues were apposed and sutured with 4-0 Vicryl sutures and the epidermal edges were approximated with 5-0 Fast Absorbing Gut running and/or interrupted sutures. .The resulting intermediate linear closure measured 2.6 cm. The surgical site was cleaned and white petrolatum with a pressure dressing was applied. The patient tolerated the procedure well and without complications and was given both verbal and written instruction on postoperative wound care. Follow up as needed. The patient was discharged in good condition. Total local anesthesia with 1% lidocaine with 1:100,000 epinephrine used: 1.5 cc Total local with 0.25% bupivacaine used: 1.0 cc Armando Alvarez MD Mohs Micrographic Surgery and Dermatologic Oncology Department of Dermatology [address] [place] [id number] Note initiated by EVELYN Higgins CMA has performed the documentation for this encounter in the presence of and acting as a scribe for Dr. Alvarez I performed the above scribed service and agree with the accuracy of the documentation in this encounter. Reviewed and signed by: Armando Alvarez MD Dermatology [facility] documented in this encounter Plan of Treatment Upcoming Encounters Date Type Department Care Team (Late st Contact Info) Description 06/17/2024 10:20 AM EDT Office Visit Dermatology at [address] [phone] Nick Whiteside MD [facility] DR RAJESH [facility] [address] Scheduled Referrals Name Type Priority Associated Diagnoses Order Schedule Referral to Dermatology Outpatient Referral Routine Basal cell carcinoma of face Ordered: 03/01/2021 documented as of this encounter Visit Diagnoses Diagnosis Basal cell carcinoma (BCC) of forehead documented in this encounter Care Teams Art Museum Aide Relationship Specialty Start Date End Date Nick Woodard MD [address] [place] [id number] PCP - General 07/26/10 11/19/22 documented as of this encounter
--- OUTSIDE RECORDS SUMMARY | 2024-04-08 16:27 | XMS_ITS | Encounter Summary ---
Author Organization [facility] [place] [address] Care Team Providers Care Licensed Mass Real Estate Appraiser Name Role Phone Nick Woodard MD Primary Care Provider [phone] Reason for Visit * Reason Comments Wound Check Encounter Details Date Type Department Care Team (Latest Contact Info) Description 05/30/2021 2:00 PM EDT Clinical Support Dermatology at [facility] [address] [place] [address] Armando Alvarez MD [facility] DR RAJESH [place] [address] Visit for wound check Social History Tobacco Use Types Packs/Day Years [...] AM EDT documented as of this encounter Progress Notes * Armando Alvarez MD - 05/30/2021 2:00 PM EDT Images from the original note were not included. Chief complaint: Wound check History of Present Illness: Sai Bailey is a 76 y.o. is status post excision for: Type of tumor: basal cell carcinoma, nodular Located on the: right forehead Surgery date: 05/05/2021 The defect was repaired by: intermediate linear closure Today, the patient reports that he is unsure if the wound is healing appropriately. Examination: Focused examination performed of the surgical site. See photograph below Assessment: 1. Examination reveals a well-healing wound; slight dehiscence in center. Patient reassured. 2. One Vicryl suture removed, no other sutures remain. 3. Wound cleansed with Hibiclens and bandaged with Vaseline and a Band-Aid. Plan: 1. Continue cleansing wound with soap and water daily, and continue once a day dressing changes fornext two weeks until wound is completely healed. 2. F/U as needed Note initiated by Tamika Buchanan, RN Tamika Buchanan RN has performed the documentation for this encounter in the presence of and acting as a scribe for Dr. Alvarez I performed the above scribed service and agree with the accuracy of the documentation in this encounter. Reviewed and signed by: Armando Alvarez Dermatology [facility] Armando Alvarez MD Mohs Micrographic Surgery and Dermatologic Oncology Department of Dermatology [address] [place] [phone] documented in this encounter Plan of Treatment Upcoming Encounters Date Type Department Care Team (Late st Contact Info) Description 06/17/2024 10:20 AM EDT Office Visit Dermatology [address] [address] Nick Whiteside MD [facility] DR RAJESH [place] [address] documented as of this encounter Visit Diagnoses Diagnosis Visit for wound check Encounter for other specified aftercare documented in this encounter Care Teams Licensed Mass Real Estate Appraiser Relationship Specialty Start Date End Date Nick Woodard MD [address] [place] [phone] PCP - General 07/26/10 11/19/22 documented as of this encounter
--- OUTSIDE RECORDS SUMMARY | 2024-04-08 16:27 | XMS_ITS | Encounter Summary ---
Author Organization [facility] Address [facility] [place] [address] Care Team Providers Care Cocoa Bean Roaster Name Role Phone Nick Woodard MD Primary Care Provider [phone] Reason for Visit * Reason Comments Skin Lesion * Consultation (Routine) - Closed Specialty Diagnoses / Procedures Referred By Contac t Referred To Contact Dermatology Diagnoses Skin lesion Magi Muller APRN [address] [place] [address] Lauren Foster MD [facility] [place] [address] Referral ID Status Reason Start Date Expiration Date Visits Re quested Visits Authorized [id number] Closed 01/18/2021 01/18/2022 1 1 Encounter Details Date Type Department Care Team (Late st Contact Info) Description 02/21/2021 11:00 AM EDT Office Visit Dermatology at [facility] [address] [place] [address] Lauren Foster MD [facility] [place] [address] Suly Garcia, RN Neoplasm of uncertain behavior of skin Social History Tobacco Use Types Packs/Day Years [...] as of this encounter Progress Notes * Lauren Foster MD - 02/21/2021 11:00 AM EDT Images from the original note were not included. DEPARTMENT OF DERMATOLOGY Medical Dermatology Clinic Provider: LAUREN FOSTER MD Patient's preferred name Mark Preferred contact method for results []myDH []Letter [x]Phone: Home Detailed phone message OK? Yes Are there any other people with whom we may discuss your care? Sarah Mora PAST MEDICAL HISTORY If no, type N. If yes, type date, location, treatment Melanoma N Dysplastic nevi N SCC N BCC N AKs N UV Exposure & Protection Other relevant past medical history (i.e. eczema, psoriasis, birthmarks, immunosuppression) N FAMILY HISTORY If yes, details Melanoma N NMSC N Other relevant family history N SOCIAL HISTORY Occupation: Retired Hobbies: Sports PRE-PROCEDURE SCREENING If no, type N. If yes, include details below Allergy to lidocaine, epinephrine, Dermabond, chlorhexidine, or adhesives: N Bleeding disorder or blood thinners: Y Pacemaker, defibrillator, deep brain stimulator, cochlear implant: N History of Present Illness: Sai Bailey is a 75 y.o. year old. Patient is referred to the clinic at the request of Magi Muller for concerning spot on the forehead that has been there for about 15 months. This spot will bleed when washed. Review of Systems: General: Feeling well. Skin: No other skin concerns. Medications: Reviewed in eD-H Allergies: Reviewed in eD-H Skin Examination: Focused skin examination of the forehead was normal with the exception of the findings below Assessment/Plan BCC. 0.4cm eroded papule with surrounding telangectasias on the right forehead. Procedure: Skin biopsy by shave technique Location: right forehead. Discussed indications for procedure and expectations including risks and benefits. Verbal consent obtained. Skin prep with alcohol. Local anesthesia with 1% lidocaine, 1/100,000 epinephrine. A sampleof the lesion was removed by shave technique to the level of the dermis and submitted to Pathology.Hemostasis obtained. There were no complications; the patient tolerated the procedure well. The wound was dressed. Post-procedure expectations, wound care and activity restrictions were reviewed. Photo was taken and charted with patient's verbal consent. RTC: Follow-up based on pathology results. []Note routed to legal secretary []Recall has been placed in scheduling system []Appointment scheduled at checkout Seen in conjunction with Suly Garcia RN I performed the above scribed service and agree with the accuracy of the documentation in this encounter. Reviewed and signed by: LAUREN FOSTER MD Dermatology [facility] * Lauren Foster MD - 02/21/2021 11:00 AM EDT BCC as expected. Needs referral to Mohs, Please call patient to schedule, NCP documented in this encounter Plan of Treatment Upcoming Encounters Date Type Department Care Team (Late st Contact Info) Description 06/17/2024 10:20 AM EDT Office Visit Dermatology at [address] [place] [address] Nick Whiteside MD [facility] [place] [address] documented as of this encounter Procedures Procedure Name Priority Date/Time Associated Diagnosis Comments SURGICAL PATHOLOGY REPORT Routine 02/21/2021 11:30 AM EDT SPECIMEN TO PATHOLOGY Routine 02/21/2021 11:30 AM EDT Neoplasm of uncertain behavior of skin documented in this encounter Results * Surgical Pathology Report (02/21/2021 11:30 AM EDT) Final Diagnosis [id number] ? Location: [facility] The signing pathologist has (i) examined the relevant preparation(s) for the specimen(s) and (ii) rendered or confirmed the diagnosis(es). . ?Surgical Pathology DIAGNOSIS Right forehead, skin shave biopsy: - ??Basal cell carcinoma, nodular type, ??present at the deep specimen edge Electronically signed by: ?Trey WEST, Aime Rodriguez Verified: ??2021 15:[address] Performed at: ??-[facility] [place], [place], [place] SPECIMEN(S) SUBMITTED A - Right forhead, skin shave biopsy (1) CLINICAL INFORMATION BCC. 0.4 cm eroded papule with surrounding telangiectasias on the right forehead SPECIMEN PROCESSING A - Labeled/Fixative: Patient demographics, formalin. Quantity/Size: ??Single, 0.7 x 0.4 x 0.1 cm. Tissue Description: Irregular, granular and partly crusted shave of pop-white skin. Sections/Processin g: Inked, trisected and entirely submitted in 1 cassette labeled A1. ??pps 2021 3:31 PM EDT [facility] SPECIMEN FROM SKIN / Unknown 02/21/2021 11:30 AM EDT 02/21/2021 11:30 AM EDT Lauren Foster MD PATHOLOGY/CYTOLOGY O NATE Performing Organization Address City/State/[facility] Co de Phone Number [facility] [place] [address] * Specimen to Pathology (02/21/2021 11:30 AM EDT) AP Specimen 02/21/2021 11:3 0 AM EDT 02/21/2021 11:30 AM EDT Narrative [facility] - 02/21/2021 11:30 AM EDT Specimen requisition ordered. ??Separate Pathology report to follow Lauren Foster MD PATHOLOGY/CYTOLOGY O RDERABLES [facility] [place] [address] documented in this encounter Visit Diagnoses Diagnosis Neoplasm of uncertain behavior of skin documented in this encounter Care Teams Cocoa Bean Roaster Relationship Specialty Start Date End Date Nick Woodard MD [address] [place] [phone] PCP - General 07/26/10 11/19/22 documented as of this encounter
--- OUTSIDE RECORDS SUMMARY | 2024-04-08 16:27 | XMS_ITS | Encounter Summary ---
Author Organization [facility] [place] [address] Care Team Providers Care Senior Cyber Intelligence Analyst Name Role Phone Nick Woodard MD Primary Care Provider [phone] Encounter Details Date Type Department Care Team (Late st Contact Info) Description 12/14/2014 1:20 PM EDT [place] [address] Donaldo Paulson MD [facility] [place] [address] Elevated PSA Discharge Disposition: Home Social History Tobacco Use Types Packs/Day Years [...] Sign Reading Time Taken Comments Blood Pressure 119/76 12/14/2014 1:13 PM EDT Pulse 66 12/14/2014 1:13 PM EDT Temperature - - Respiratory Rate - - Oxygen Saturation 99% 12/14/2014 1:13 PM EDT Inhaled Oxygen Concentration - - Weight - - Height - - Body Mass Index - - documented in this encounter Progress Notes * Donaldo Paulson MD - 12/14/2014 1:25 PM EDT This is a pleasant 69 year old man with a history of low risk prostate cancer (biopsy Vince 3+3=6, PSA 2.8, cT2a), who was downgraded from [place] 3+4=7 disease on path review at [facility], who is s/p BNS RALRP on 03/16. Uncomplicated rivera removal at 1 week. He is doing well. No fevers, chills. No significant constipation, pain. Urinary control has improved. Generally dry. Rare NIKKI. Wears a safety pad. No spontaneous erectile function but good sensation and overall pleased. 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) HISTOLOGIC GRADE: Primary Pattern: Grade 3 Secondary Pattern: Grade 3 Total [place] Score: 6 LOCATION OF TUMOR: Right mid lobe TUMOR QUANTITATION: < 1% EXTRAPROSTATIC EXTENSION: Not identified SEMINAL VESICLE INVASION: Not identified MARGINS: Margins uninvolved by invasive carcinoma TREATMENT EFFECT: Not identified LYMPH-VASCULAR INVASION: Not identified PERINEURAL INVASION: Present PRIMARY TUMOR (pT): pT2a: Unilateral, involving one-half of 1 side or less REGIONAL LYMPH NODES (pN): pNX: Regional lymph nodes cannot be assessed DISTANT METASTASIS (pM): Not applicable ADDITIONAL PATHOLOGIC FINDINGS: High-grade prostatic intraepithelial neoplasia (PIN) Nodular prostatic hyperplasia Focal acute and chronic prostatitis TMRBLK: A37 PSA today is <0.03 A: S/p RALRP, POP Good recovery of continence P: PSA in 4 months His questions were answered. 16 of 17 min spent in counseling and coordination of care documented in this encounter Plan of Treatment Upcoming Encounters Date Type Department Care Team (Late st Contact Info) Description 06/17/2024 10:20 AM EDT Office Visit Dermatology at [facility] [address] [place] [phone] Nick Whiteside MD [facility] [address] [place] [address] documented as of this encounter Procedures Procedure Name Priority Date/Time Associated Diagnosis Comments PSA (ULTRASENSITIVE) STAT 12/14/2014 12:08 PM EDT Elevated PSA documented in this encounter Results * PSA (12/14/2014 12:08 PM EDT) Prostate Specific Antigen (Ultrasensitiv e) <0.03 0.00 - 4.00 ng/mL SHEELA LEHMAN Blood specimen (specimen) 12/14/2014 12:08 PM EDT 12/14/2014 12:36 PM EDT Narrative Resulting Agency Comment Spec In Lab Donaldo Paulson MD CHEMISTRY ORDERABLES [facility] documented in this encounter Visit Diagnoses Diagnosis Elevated PSA Elevated prostate specific antigen (PSA) documented in this encounter Care Teams Senior Cyber Intelligence Analyst Relationship Specialty Start Date End Date Nick Woodard MD [address] [place] [phone] PCP - General 07/26/10 11/19/22 documented as of this encounter
--- OUTSIDE RECORDS SUMMARY | 2024-04-08 16:27 | XMS_ITS | Encounter Summary ---
Author Organization [facility] Address [facility] [place] [address] Care Team Providers Care Head Cleaning Porter Name Role Phone Nick Woodard MD Primary Care Provider [phone] Reason for Referral * Consultation (Routine) - Closed Specialty Diagnoses / Procedures Referred By Contjaqueline t Referred To Contact Dermatology Diagnoses Basal cell carcinoma of face Yoly Gomez MD [facility] [address] [place] [address] Armando Alvarez MD [facility] [address] [place] [address] Referral ID Status Reason Start Date Expiration Date V isits Requested Visits Authorized [id number] Closed Consult, Test & Treat 03/01/2021 03/01/2022 1 1 Encounter Details Date Type Department Care Team (Late st Contact Info) Description 03/01/2021 Telephone Dermatology at [facility] [address] [place] [address] Yoly Gomez MD [facility] [address] [place] [address] Social History Tobacco Use Types Packs/Day Years [...] encounter Miscellaneous Notes * Telephone Encounter - Oly Morgan LPN - 03/01/2021 3:02 PM EDT Referred to [facility] per Dr. Gomez documented in this encounter Plan of Treatment Upcoming Encounters Date Type Department Care Team (Late st Contact Info) Description 06/17/2024 10:20 AM EDT Office Visit Dermatology at [facility] [address] [place] [address] Nick Whiteside MD [facility] [address] [place] [address] Scheduled Referrals Name Type Priority Associated Diagnoses Order Schedule Referral to Dermatology Outpatient Referral Routine Basal cell carcinoma of face Ordered: 03/01/2021 documented as of this encounter Visit Diagnoses Diagnosis Basal cell carcinoma of face Basal cell carcinoma of skin of other and unspecified parts of face documented in this encounter Care Teams Head Cleaning Porter Relationship Specialty Start Date End Date Nick Woodard MD [address] [place] [phone] PCP - General 07/26/10 11/19/22 documented as of this encounter
--- OUTSIDE RECORDS SUMMARY | 2024-04-08 16:27 | XMS_ITS | Encounter Summary ---
Author Organization [facility] [place] [address] Care Team Providers Care Geophysical Observer Name Role Phone Nick Woodard MD Primary Care Provider [phone] Encounter Details Date Type Department Care Team (Late st Contact Info) Description 03/30/2015 Orders [place] [address] Donaldo Paulson MD [facility] [place] [address] Malignant neoplasm of prostate (Primary Dx) Social History Tobacco Use Types Packs/Day Years [...] 10:20 AM EDT Office Visit Dermatology at [facility] [address] [place] [address] Nick Whiteside MD [facility] [place] [address] documented as of this encounter Results * PSA (04/20/2015 10:46 AM EDT) Prostate Specific Antigen (Ultrasensitiv e) <0.03 0.00 - 4.00 ng/mL SHEELA LEHMAN Blood specimen (specimen) 04/20/2015 10:46 AM EDT 04/20/2015 10:55 AM EDT Narrative Resulting Agency Comment Spec In Lab Donaldo Paulson MD CHEMISTRY ORDERABLES [facility] documented in this encounter Visit Diagnoses Diagnosis Malignant neoplasm of prostate- Primary documented in this encounter Care Teams Geophysical Observer Relationship Specialty Start Date End Date Nick Woodard MD [address] [place] [phone] PCP - General 07/26/10 11/19/22 documented as of this encounter
--- OUTSIDE RECORDS SUMMARY | 2024-04-08 16:27 | XMS_ITS | Encounter Summary ---
Author Organization [facility] [place] [address] Care Team Providers Care Room Cooler Installer Name Role Phone Nick Woodard MD Primary Care Provider [phone] Encounter Details Date Type Department Care Team (Latest Contact Info) Description 05/05/2021 10:45 AM EDT Clinical Support Dermatology at [facility] [address] [place] [address] Armando Alvarez MD [facility] [address] RAJESH [place] [address] Basal cell carcinoma of right forehead Social History Tobacco Use Types Packs/Day [...] as of this encounter Progress Notes * Lester Bardales, HOSPITALIST - 05/05/2021 10:45 AM EDT [facility] consultation and preoperative note (H&P) Patient Name: Sai Bailey Age: 76 y.o. Date of : 1945 Today's Date: 05/05/2021 REFERRING PROVIDER: Yoly Gomez MD CC: Mohs [...] MEDICATIONS: Medications reviewed documented in this encounter Miscellaneous Notes * Addendum Note - Lester Bardales CMA - 05/05/2021 10:45 AM EDTAddended by: LESTER BARDALES on: 05/05/2021 04:40 PM Modules accepted: Level of Service documented in this encounter Plan of Treatment Upcoming Encounters Date Type Department Care Team (Late st Contact Info) Description 06/17/2024 10:20 AM EDT Office Visit Dermatology at [facility] [address] [place] [phone] Nick Whiteside MD [facility] DR RAJESH [place] [address] documented as of this encounter Visit Diagnoses Diagnosis Basal cell carcinoma of right forehead Basal cell carcinoma of skin of other and unspecified parts of face documented in this encounter Care Teams Room Cooler Installer Relationship Specialty Start Date End Date Nick Woodard MD [address] [place] [phone] PCP - General 07/26/10 11/19/22 documented as of this encounter
--- OUTSIDE RECORDS SUMMARY | 2024-04-08 16:27 | XMS_ITS | Encounter Summary ---
Author Organization [facility] [place] [address] Care Team Providers Care Home Day Care Provider Name Role Phone Nick Woodard MD Primary Care Provider [phone] Encounter Details Date Type Department Care Team (Late st Contact Info) Description 07/14/2014 11:20 AM EST [place] [address] Donaldo Paulson MD [facility] [place] [address] Elevated PSA Discharge Disposition: Home Social History [...] Sign Reading Time Taken Comments Blood Pressure 131/78 07/14/2014 11:31 AM EST Pulse 78 07/14/2014 11:31 AM EST Temperature - - Respiratory Rate - - Oxygen Saturation - - Inhaled Oxygen Concentration - - Weight 95.3 kg (210 lb) 07/14/2014 11:31 AM EST Height 175.3 cm (5' 9) 07/14/2014 11:31 AM EST Body Mass Index 31.01 07/14/2014 11:31 AM EST documented in this encounter Progress Notes * Donaldo Paulson MD - 07/14/2014 11:35 AM EST This is a pleasant 69 year old man with a history of low risk prostate cancer (biopsy Vince 3+3=6, PSA 2.8, cT2a), who was downgraded from Vince 3+4=7 disease on path review at [facility], who is 3 months s/p BNS RALRP. Uncomplicated rivera removal at 1 week. He is doing well. No fevers, chills. No significant constipation, pain. Urinary control has improved. Tried no pad yesterday, did well/dry for 5 hrs, then some mild leakage. Doing kegels. Avoiding bladder irritants. No spontaneous erectile function but not active. 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 16 of 17 min spent in counseling and coordination of care. documented in this encounter Plan of Treatment Upcoming Encounters Date Type Department Care Team (Late st Contact Info) Description 06/17/2024 10:20 AM EDT Office Visit Dermatology at [facility] [address] [place] [address] Nick Whiteside MD [facility] DR RAJESH MONTEMAYOR[place] [address] documented as of this encounter Procedures Procedure Name Priority Date/Time Associated Diagnosis Comments PSA (ULTRASENSITIVE) STAT 07/14/2014 10:04 AM EST Elevated PSA documented in this encounter Results * PSA (07/14/2014 10:04 AM EST) Prostate Specific Antigen (Ultrasensitiv e) <0.03 0.00 - 4.00 ng/mL SHEELA EncapsonENNIUM Blood specimen (specimen) 07/14/2014 10:04 AM EST 07/14/2014 10:37 AM EST Narrative Resulting Agency Comment Spec In Lab Donaldo Paulson MD CHEMISTRY ORDERABLES [facility] [place] documented in this encounter Visit Diagnoses Diagnosis Elevated PSA Elevated prostate specific antigen (PSA) documented in this encounter Care Teams Home Day Care Provider Relationship Specialty Start Date End Date Nick Woodard MD [address] [place] [phone] PCP - General 07/26/10 11/19/22 documented as of this encounter
--- OUTSIDE RECORDS SUMMARY | 2024-04-08 16:27 | XMS_ITS | Encounter Summary ---
Author Organization Formerly [facility] [place] [address] Care Team Providers Care Pediatric Speech Language Pathologist Name Role Phone Nick Woodard MD Primary Care Provider [phone] Encounter Details Date Type Department Care Team (Late st Contact Info) Description 04/20/2015 11:40 AM EDT [place] [address] Donaldo Paulson MD [facility] [place] [place] [address] Malignant neoplasm of prostate Discharge Disposition: Home Social History Tobacco Use [...] Pulse 65 04/20/2015 11:48 AM EDT Temperature - - Respiratory Rate - - Oxygen Saturation - - Inhaled Oxygen Concentration - - Weight 95.3 kg (210 lb) 04/20/2015 11:48 AM EDT Height 175.3 cm (5' 9) 04/20/2015 11:48 AM EDT Body Mass Index 31.01 04/20/2015 11:48 AM EDT documented in this encounter Progress Notes * Donaldo Paulson MD - 04/20/2015 11:40 AM EDT This is a pleasant 70 year old man with a history of low risk prostate cancer (biopsy Vince 3+3=6, PSA 2.8, cT2a), who was downgraded from [place] 3+4=7 disease on path review at [facility], who is s/p BNS RALRP on 03/16. Uncomplicated rivera removal at 1 week. He is doing well. No fevers, chills. Urinary control is good. Generally dry. Wears a safety pad. No spontaneous erectile function but good sensation and overall pleased. 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 [place] will speak with his PCP tomorrow and request that this be done at his q6 mo PCP visits. Moving forward, he can have PSA checks every 12 months; his requests testing every 6 months instead, which is more conservative but perfectly fine. I asked him them to alert me if the PSA ever become detectable. His questions were answered. 16 of 17 min spent in counseling and coordination of care. documented in this encounter Plan of Treatment Upcoming Encounters Date Type Department Care Team (Late st Contact Info) Description 06/17/2024 10:20 AM EDT Office Visit Dermatology at [facility] [address] [place] [address] Nikc Whiteside MD [facility] [place] [address] documented as of this encounter Procedures Procedure Name Priority Date/Time Associated Diagnosis Comments PSA (ULTRASENSITIVE) STAT 04/20/2015 10:46 AM EDT Malignant neoplasm of prostate documented in this encounter Results * PSA (04/20/2015 10:46 AM EDT) Prostate Specific Antigen (Ultrasensitiv e) <0.03 0.00 - 4.00 ng/mL SHEELA LEHMAN Blood specimen (specimen) 04/20/2015 10:46 AM EDT 04/20/2015 10:55 AM EDT Narrative Resulting Agency Comment Spec In Lab Donaldo Paulson MD [facility] documented in this encounter Visit Diagnoses Diagnosis Malignant neoplasm of prostate documented in this encounter Care Teams Pediatric Speech Language Pathologist Relationship Specialty Start Date End Date Nick Woodard MD [address] [place] [phone] PCP - General 07/26/10 11/19/22 documented as of this encounter
--- OUTSIDE RECORDS SUMMARY | 2024-04-08 16:27 | XMS_ITS | Encounter Summary ---
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 [address] [place] [address] [place] (actinic keratosis) Social History Tobacco Use Types Packs/Day Years [...] as of this encounter Progress Notes * Evgeny Mora MD - 01/26/2023 4:00 PM EDT Images from the original note were not included. DEPARTMENT OF DERMATOLOGY Medical Dermatology Clinic Note Provider: Evgeny Mora MD Patient's preferred name Sai Preferred contact method for results [x]Phone []myD-H []Letter Detailed phone message OK? Yes Are there any other people with whom we may discuss your care? Sarah Morgan Past Medical History Date, location, treatment Melanoma N Dysplastic nevi N SCC N BCC 02/21/21: right forehead, BCC s/p Mohs AKs N Other relevant past medical history N Family History Details Melanoma N NMSC N Other relevant family history N Social History Occupation: Retired Hobbies: Sports Pre-Procedure Questions Details Allergy to lidocaine, epinephrine, Dermabond, chlorhexidine, or adhesives N Bleeding disorder or blood thinners Y Implanted devices (Pacemaker, defibrillator, deep brain stimulator, cochlear implant) N History of Present Illness: Sai [place] is a 77 y.o. Patient is referred to the clinic at the request of Luis Carlos Del Real for an evaluation of a spot of concern located on the nose, present for about 6 months, not symptomatic, not growing or changing, occasionally uses cortisone 10 or Aveeno lotion on but has not applied anything for the past 3-4 days. Review of Systems: General: Feeling well. Skin: No other skin concerns. Medications: Reviewed in eD-H Allergies: Reviewed in eD-H Skin Examination: Focused skin examination of the face was normal with the exception of the findings below. Assessment/Plan # Actinic keratosis - Ill-defined gritty papule(s) on the left nasal sidewall x 1 - Explained etiology, natural history and premalignant potential of these lesions. - Patient opted to proceed with liquid nitrogen. - Patient should return to return to clinic for re-evaluation if lesion(s) does not resolve with this treatment. Procedure: Destruction of lesion(s) with cryotherapy. Location(s): As noted above Number: 1 Discussed procedure and expectations including risks and benefits. Verbal consent obtained. Treatedwith LN2. There were no complications. Patient tolerated the procedure well. Post-procedure expectations and wound care were reviewed. RTC: At patient's convenience for FSE []Note routed to legal secretary receptionist []Recall placed in scheduling system [x]Appointment scheduled at checkout Scribe attestation: Carol Swanson [facility] has performed the documentation for this encounter in the presence of and acting as a scribe for Evgeny Mora MD. I performed the above scribed service and agree with the accuracy of the documentation in this encounter. Reviewed and signed by: Evgeny Mora MD Dermatology [facility] Patient seen and evaluated with staff clinical pharmacy technician: Nhung Metzger MD Department of Dermatology [facility] * Nhung Metzger MD - 01/26/2023 4:00 PM EDT I directly supervised Dr. Mora during this office visit. Dr. Mora presented the history and physical exam to me. I then saw and examined this patient with Dr. Mora . We reviewed the history and pertinent details and I confirmed the physical findings. I agree with the details of the history and physical exam as documented in Dr. Mora's note. Nhung Metzger MD Staff Physician documented in this encounter Plan of Treatment Upcoming Encounters Date Type Department Care Team (Late st Contact Info) Description 06/17/2024 10:20 AM EDT Office Visit Dermatology at [facility] [address] [place] [address] Nick Whiteside MD [facility] [address] [place] [address] Scheduled Referrals Name Type Priority Associated Diagnoses Order Schedule Referral to Dermatology Outpatient Referral Routine Unspecified Malignant Neoplasm Of Skin Of Nose Ordered: 11/20/2022 documented as of this encounter Visit Diagnoses Diagnosis [place] (actinic keratosis) Actinic keratosis documented in this encounter Care Teams Timber Estimator Relationship Specialty Start Date End Date Luis Carlos Del Real MD [address] [place] [address] PCP - General Internal Medicine 11/20/22 documented as of this encounter
--- OUTSIDE RECORDS SUMMARY | 2024-04-08 16:27 | XMS_ITS | Encounter Summary ---
Author Organization [facility] [place] [address] Care Team Providers Care Farm Machinery Assembler Name Role Phone Nick Woodard MD Primary Care Provider [phone] Encounter Details Date Type Department Care Team (Late st Contact Info) Description 04/07/2014 11:20 AM EDT [place] [address] Donaldo Paulson MD [facility] [place] [address] Malignant neoplasm of prostate (Primary Dx) Discharge Disposition: Home Social History Tobacco Use [...] as of this encounter Progress Notes * Donaldo Paulson MD - 04/07/2014 11:03 AM EDT This is a pleasant 69 year old man with a history of low risk prostate cancer (biopsy Vince 3+3=6, PSA 2.8, cT2a), who was downgraded from [place] 3+4=7 disease on path review at [facility], who is 1 week s/p BNS RALRP. He is doing well. No fevers, chills. Catheter draining well. No significant constipation, pain. 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 He has organ confined disease with negative margins, thus there is no indication for adjuvant therapy. I recommended PSA q3 month for 1 year, q6 month for the next year, then annually. Kegel exercises were taught. He passed his voiding trial today. We discussed penile rehabiliation strategies for ED, including early use of PDE5 inhibitors and intracavernosal injections therapy. We will have him return in 3 months w/ PSA prior. His questions were answered in detail. 16 of 17 min spent in counseling and coordination of care. His questions were answered. 16 of 17 min spent in counseling and coordination of care. documented in this encounter Plan of Treatment Upcoming Encounters Date Type Department Care Team (Late st Contact Info) Description 06/17/2024 10:20 AM EDT Office Visit Dermatology at [facility] [address] [place] [address] Nick Whiteside MD [facility] [address] [place] [address] documented as of this encounter Visit Diagnoses Diagnosis Malignant neoplasm of prostate- Primary documented in this encounter Care Teams Farm Machinery Assembler Relationship Specialty Start Date End Date Nick Woodard MD [address] [place] [phone] PCP - General 07/26/10 11/19/22 documented as of this encounter
--- OUTSIDE RECORDS SUMMARY | 2024-04-08 16:27 | XMS_ITS | Encounter Summary ---
Author Organization [facility] [place] [address] Care Team Providers Care Jewel Hole Gauger Name Role Phone Luis Carlos Del Real MD Primary Care Provider [phone] Encounter Details Date Type Department Care Team (Late st Contact Info) Description 04/03/2023 1:20 PM EDT Office Visit Dermatology at [facility] [address] [place] [address] Evgeny Mora MD [facility] [address] [place] [address] Phan angioma; Seborrheic keratoses; Multiple benign melanocytic nevi of upper and lower extremities and trunk; Solar lentigo; Basal cell carcinoma of right forehead Social [...] Progress Notes * Evgeny Mora MD - 04/03/2023 1:20 PM EDT Images from the original note were not included. DEPARTMENT OF DERMATOLOGY Medical Dermatology Clinic Provider: Evgeny Mora MD Patient's preferred name Mark Preferred contact method for results [x]Phone []myD-H []Letter Detailed phone message OK? Yes Are there any other people with whom we may discuss your care? Sarah Mora Past Medical History Date, location, treatment Melanoma [...] of Present Illness: Sai [place] is a 78 y.o. Patient returns to clinic today for afull skin exam with the following concerns: - No specific concerns Last visit at Dermatology: 01/26/2023 Last visit with this provider: 01/26/2023 Medications: Reviewed in eD-H Allergies: Reviewed in eD-H Skin Examination: Full skin examination: Patient asked to undress to their comfort level. Verbalized that the provider's preference is that patient remove all clothing and that the provider will not examine areas patient elects to keep covered. Examination of the scalp, hair, head, face, ears, neck, chest, axillae, abdomen, back, buttocks, and upper and lower extremities was normal with the exception of the findings below. Genitalia not examined. Assessment/Plan #. History of BCC - well healed scars on the right forehead. - NER #. Phan Angiomas - Multiple bright red, well-demarcated papules on the trunk and extremities. - Discussed benign nature of lesions and provided reassurance. No treatment necessary at this time. #. Benign Nevi - Scattered medium brown, evenly pigmented macules and papules on the trunk and extremities with reassuring pigment pattern on dermoscopy. - Discussed benign nature of lesions and provided reassurance. Will continue to monitor. #. Seborrheic Keratoses - Stuck on, waxy papules on the trunk and extremities. - Discussed benign nature of lesions and provided reassurance. No treatment necessary at this time. #. Lentigines - Scattered light-brown, evenly pigmented, well-demarcated macules on sun-exposed areas of the trunk and extremities. - No worrisome pigmented lesions. Discussed benign nature of lesions and provided reassurance. Willcontinue to monitor. Other: Sun protection discussed (protective clothing and SPF30+ broad-spectrum sunscreen) RTC: 1 year for FSE []Note routed to hospital secretary []Recall placed in scheduling system []Appointment scheduled at checkout Scribe attestation: Estella Nunez and Funmilayo Sandhu [facility] have performed the documentation for this encounter in the presence of and acting as a scribe for Evgeny Mora MD. I performed the above scribed service and agree with the accuracy of the documentation in this encounter. Reviewed and signed by: Evgeny Mora MD Dermatology [facility] Patient seen and evaluated with staff cnc maintenance mechanic: Darryl Martinez MD Department of Dermatology [facility] * Darryl Martinez MD - 04/03/2023 1:20 PM EDT I directly supervised Dr. Mora in the care of this patient. I saw and evaluated this patient with Dr. Mora. He presented the history and physical exam detailsto me, then we saw the patient together and I confirmed these findings. I agree with details as written. My physical examination confirms his findings. The assessment and plan were formulated in discussion with me at the time of visit and I agree withthem as documented. DARRYL MARTINEZ MD [facility] Staff Physician documented in this encounter Plan of Treatment Upcoming Encounters Date Type Department Care Team (Late st Contact Info) Description 06/17/2024 10:20 AM EDT Office Visit Dermatology at [facility] [address] [place] [address] Nick Whiteside MD [facility] [address] [place] [address] documented as of this encounter Visit Diagnoses Diagnosis Phan angioma Nevus, non-neoplastic Seborrheic keratoses Multiple benign melanocytic nevi of upper and lower extremities and trunk Solar lentigo Other dyschromia Basal cell carcinoma of right forehead Basal cell carcinoma of skin of other and unspecified parts of face documented in this encounter Care Teams Jewel Hole Gauger Relationship Specialty Start Date End Date Luis Carlos Del Real MD [address] [place] [address] PCP - General Internal Medicine 11/20/22 documented as of this encounter
--- OUTSIDE RECORDS SUMMARY | 2024-04-08 16:27 | XMS_ITS | Encounter Summary ---
Author Organization [facility] [place] [address] Care Team Providers Care Mass Spec Name Role Phone Luis Carlos Del Real MD Primary Care Provider [phone] Encounter Details Date Type Department Care Team (Latest Contact Info) Description 03/27/2023 Travel Social History Tobacco Use Types Packs/Day [...] 10:20 AM EDT Office Visit Dermatology at [facility] [address] [place] [address] Nick Whiteside MD [facility] [address] [place] [address] documented as of this encounter Visit Diagnoses Not on filedocumented in this encounter Care Teams Mass Spec Relationship Specialty Start Date End Date Luis Carlos Del Real MD [address] [place] [address] PCP - General Internal Medicine 11/20/22 documented as of this encounter
--- OUTSIDE RECORDS SUMMARY | 2024-04-08 16:27 | XMS_ITS | Encounter Summary ---
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 Luis Carlos Del Real MD [address] [place] [address] [facility] Dermatology [address] [place] [address] Referral ID Status Reason Start Date Expiration Date V isits Requested Visits Authorized [id number] Closed Consult, Test & Treat PCP Updated and/or Approved 11/20/2022 11/20/2023 6 6 Encounter Details Date Type Department Care Team (Latest Contact Info) Description 11/20/2022 Transcribe Orders eDH Incoming Referrals [phone] Luis Carlos Del Real MD [address] [place] [address] Unspecified malignant neoplasm of skin of nose Social History Tobacco Use Types Packs/Day Years [...] 10:20 AM EDT Office Visit Dermatology at [facility] [address] [place] [address] Nick Whiteside MD [facility] [address] [place] [address] Scheduled Referrals Name Type Priority Associated Diagnoses Order Schedule Referral to Dermatology Outpatient Referral Routine Unspecified Malignant Neoplasm Of Skin Of Nose Ordered: 11/20/2022 documented as of this encounter Visit Diagnoses Diagnosis Unspecified malignant neoplasm of skin of nose documented in this encounter Care Teams Appliance Painter And Refinisher Relationship Specialty Start Date End Date Luis Carlos Del Real MD [address] [place] [address] PCP - General Internal Medicine 11/20/22 documented as of this encounter
--- OUTSIDE RECORDS SUMMARY | 2024-04-08 16:28 | XMS_ITS | Encounter Summary ---
Author Organization [facility] Address [address] [place] [address] Care Team Providers Care Accounts Payable Clerk Name Role Phone Ruby Muller PASCUAL Primary Care Provider + Encounter Details Date Type Department Care Team (Late st Contact Info) Description 04/27/2020 Lab Requisition [facility] Pathology & Laboratory Medicine - [address] [address] Nelson Farias MD [address] [place] [phone] Encounter for other general examination Social History Tobacco Use Types Packs/Day Years Used Date Smoking Tobacco: Former Cigarettes Q uit: 12/16/1975 Alcohol Use Standard Drinks/Week Comments Yes 7 (1 standard drink = 0.6 oz pur e alcohol) Sex and Gender Information Value Date Recorded Sex Assigned at Not on file Gender Identity Not on file Sexual Orientation Not on file documented as of this encounter Plan of Treatment Not on file documented as of this encounter Procedures Procedure Name Priority Date/Time Associated Diagnosis Comments SURGICAL PATHOLOGY Today 04/27/2020 9:38 EDT documented in this encounter Results * SURGICAL PATHOLOGY (04/27/2020 9:38 EDT) Final Diagnosis A. COLON, SIGMOID, POLYP, BIOPSY: - Hyperplastic polyps. B. RECTUM, POLYP, BIOPSY: - Hyperplastic polyp. 04/29/2020 10:03 EDT [facility] Attestation By the signature below, the attending physician certifies that they have 1) personally conducted a gross and/or microscopic examination of the described specimen(s), and/or personally interpreted the results of laboratory testing of the described specimen(s), and 2) personally rendered or confirmed the above diagnosis. 04/29/2020 10:03 [facility] at 1003 Clinical History Screening; Hemorrhoids, diverticulosis, colon polyps 04/29/2020 10:03 [facility] Gross Description A. Received in formalin labelled with proper patient identification (initials B, C) and sigmoid polyp are 2 fragments of singh soft tissue (each averaging 0.2 x 0.2 x 0.2 cm). The specimen is entirely submitted in A1. B. Received in formalin labelled with proper patient identification (initials B, C) and rectal polyp is a single fragment of singh soft tissue (0.3 x 0.2 x 0.2 cm). The specimen is entirely submitted in B1. Awilda Fernando 04/28/2020 8:43 04/29/2020 10:03 EDT [facility] Performing Lab [facility] 04/29/2020 10:03 [facility] Scanned Images 04/29/2020 10:03 [facility] Tissue SPECIMEN FROM RECTUM / Unknown 04/27/2020 9:38 EDT 04/28/2020 6:53 EDT Tissue specimen (specimen) SPECIMEN FROM RECTUM / Unknown 04/27/2020 9:38 EDT 04/28/2020 6:54 EDT Nelson Farias MD PATHOLOGY ORDER ROBERTO [facility] [address] [place] [address] documented in this encounter Visit Diagnoses Diagnosis Encounter for other general examination documented in this encounter Care Teams Accounts Payable Clerk Relationship Specialty Start Date End Date Ruby Muller FNP [address] [place] [phone] PCP - General 12/08/13 documented as of this encounter
--- OUTSIDE RECORDS SUMMARY | 2024-04-08 16:28 | XMS_ITS | Encounter Summary ---
Author Organization [facility] Address [address] [place] [address] Care Team Providers Care High School Teacher Name Role Phone Renzo uRby GARNER Primary Care Provider + Encounter Details Date Type Department Care Team (Late st Contact Info) Description 04/20/2021 Lab Requisition [facility] Pathology & Laboratory Medicine - [facility] [address] [place] [address] Miguel A Quispe MD [address] [place] [address] Unspecified urinary incontinence Social History Tobacco Use Types Packs/Day Years Used Date Smoking Tobacco: Former Cigarettes Q uit: 12/16/1975 Alcohol Use Standard Drinks/Week Comments Yes 7 (1 standard drink = 0.6 oz pur e alcohol) Interpersonal Safety Answer Date Record ed Physically Hurt Never 05/16/2020 Verbally Threaten Not on file 05/16/2020 Sex and Gender Information Value Date Recorded Sex Assigned at Not on file Gender Identity Not on file Sexual Orientation Not on file documented as of this encounter Plan of Treatment Not on file documented as of this encounter Procedures Procedure Name Priority Date/Time Associated Diagnosis Comments NON PESTICIDE USE MEDICAL COORDINATOR/FNA CYTOLOGY Today 04/20/2021 14:42 EDT documented in this encounter Results * NON PESTICIDE USE MEDICAL COORDINATOR/FNA CYTOLOGY (04/20/2021 14:42 EDT) Note to Patient The following pathology results have been interpreted by your pathologist and may be available to you before your health provider has had the opportunity to review them. Please allow time for your provider to receive these results and explore management options, if applicable. 04/21/2021 15:06 EDT [facility] Final Diagnosis URINE, BARBOTAGE, CYTOLOGIC EVALUATION: - Negative for high grade urothelial carcinoma. 04/21/2021 15:06 EDT [facility] Attestation By the signature below, the attending physician certifies that they have personally conducted a gross and/or microscopic examination of the described specimens and rendered or confirmed the above diagnosis. 04/21/2021 15:06 EDT [facility] at 1506 Clinical History R32; Bladder neck erythema 04/21/2021 15:06 EDT [facility] Performing Lab [facility] 04/21/2021 15:06 EDT [facility] Scanned Images 04/21/2021 15:06 EDT [facility] ZZUNK URINE SPECIMEN / Unknown 04/20/2021 14:42 EDT 04/21/2021 8:42 EDT Miguel A Quispe MD PATHOLOGY ORDERABLES Performing Organization Address City/State/[facility] Co de Phone Number [facility] [address] [place] [address] documented in this encounter Visit Diagnoses Diagnosis Unspecified urinary incontinence documented in this encounter Care Teams High School Teacher Relationship Specialty Start Date End Date Ruby Muller FNP [address] [place] [phone] PCP - General 12/08/13 documented as of this encounter
--- OUTSIDE RECORDS SUMMARY | 2024-04-08 16:28 | XMS_ITS | Encounter Summary ---
Author Organization [facility] [place] [address] Care Team Providers Care Rib Sawyer Name Role Phone Nick Woodard MD Primary Care Provider [phone] Encounter Details Date Type Department Care Team (Late st Contact Info) Description 02/18/2014 External [place] [phone] Provider, Scanning Social History Tobacco Use Types Packs/Day Years Used Date Smoking Tobacco: Never Assessed Sex and Gender Information Value Date Recorded Sex Assigned at Male 02/15/2021 9:07 AM EDT Gender Identity Male 02/15/2021 9:07 AM EDT Sexual Orientation Straight 02/15/2021 9: 07 AM EDT documented as of this encounter Plan of Treatment Upcoming Encounters Date Type Department Care Team (Late st Contact Info) Description 06/17/2024 10:20 AM EDT Office Visit Dermatology at [facility] [address] [place] [address] Nick Whiteside MD [facility] [address] [place] [address] documented as of this encounter Procedures Procedure Name Priority Date/Time Associated Diagnosis Comments SURGICAL PATHOLOGY SCAN Routine 02/18/2014 documented in this encounter Results * Scan Doc: Surgical Pathology (02/18/2014) Donaldo Paulson MD MEDIA MGR SCAN EXT O RDR/RSLT documented in this encounter Visit Diagnoses Not on filedocumented in this encounter Care Teams Rib Sawyer Relationship Specialty Start Date End Date Nick Woodard MD [address] [place] [phone] PCP - General 07/26/10 11/19/22 documented as of this encounter
--- OUTSIDE RECORDS SUMMARY | 2024-04-08 16:28 | XMS_ITS | Encounter Summary ---
Author Organization [facility] Address [address] [place] [id number] Care Team Providers Care Pilot Instructor Name Role Phone RenzoLionelRuby J FNP Primary Care Provider + Reason for Visit * Reason Comments BPH Without Obstruction Encounter Details Date Type Department Care Team (Late st Contact Info) Description 01/09/2014 9:45 EDT Office Visit [facility] Urology [address] [place] [phone] Chino Frederick MD [address] [place] [phone] Prostate nodule (Primary Dx) Social History Tobacco Use Types Packs/Day Years Used Date Smoking Tobacco: Former Cigarettes Q uit: 12/16/1975 Alcohol Use Standard Drinks/Week Comments Yes 7 (1 standard drink = 0.6 oz pur e alcohol) Sex and Gender Information Value Date Recorded Sex Assigned at Not on file Gender Identity Not on file Sexual Orientation Not on file documented as of this encounter Last Filed Vital Signs Vital Sign Reading Time Taken Comments Blood Pressure - - Pulse - - Temperature - - Respiratory Rate - - Oxygen Saturation - - Inhaled Oxygen Concentration - - Weight 95.3 kg (210 lb) 01/09/2014 09 EDT Height 177.8 cm (5' 10) 01/09/2014 09 EDT Body Mass Index 30.13 01/09/2014 09 EDT documented in this encounter Progress Notes * Edwin Frederick A - 01/09/2014 0934 EDT This office note has been dictated. documented in this encounter Procedure Notes * Ewdin Frederick - 01/09/2014 1024 EDT DIVISION OF UROLOGY - [facility] OFFICE PROCEDURE - 01/09/2014 SHRIMP TRAWLER CAPTAIN: Nancy Frederick MD Mr Bailey is a 68-year-old gentleman in the office today for transrectal ultrasound and prostate biopsies for the finding of prostate asymmetry. A transrectal ultrasound was performed after obtaining consent and confirming pre-biopsy prep. Bothsagittal, transverse views obtained of the prostate. Volume estimated 72 cubic cm. Increased transition zone some scattered calcification. Slight asymmetry of the right peripheral zone, but no discrete hypoechoic lesions. At this point, approximately 5 mL of 1% lidocaine injected bilaterally at the base of the seminal vesicles using ultrasound guidance for anesthesia. A needle punch biopsies taken using ultrasound guidance. Twelve biopsies taken in the usual coordinates. The patient will follow up in [place] for discussion of biopsy results 7 to 10 days. We reviewed post-biopsy precautions and protocol. Nancy Frederick MD 09 54 AM - Nancy Frederick MD tn Dictation ID: [id number] cc: Nancy Hull MD, [facility] Urology [address] [place] [address] [place] [address] documented in this encounter Plan of Treatment Not on file documented as of this encounter Visit Diagnoses Diagnosis Prostate nodule- Primary Nodular prostate without urinary obstruction documented in this encounter Historical Medications * This list may reflect changes made after this encounter. Medication Sig Dispensed Refills Start Date End Date ASPIRIN ORAL Take 81 mg by mouth. CYANOCOBALAMIN, VITAMIN B-12, (VITAMIN B-12 ORAL) Take by mouth. MULTIVIT &MINERALS/FERROUS FUM (MULTI VITAMIN ORAL) Take by mouth. ERGOCALCIFEROL, VITAMIN D2, (VITAMIN D ORAL) Take by mouth. OMEPRAZOLE ORAL Take 20 mg by mouth. IRBESARTAN (AVAPRO ORAL) Take 150 mg by mouth. FOLIC ACID ORAL Take 1 mg by mouth. TAMSULOSIN HCL (FLOMAX ORAL) Take 0.4 mg by mouth. ATORVASTATIN CALCIUM (LIPITOR ORAL) Take 10 mg by mouth. added in this encounter Care Teams Pilot Instructor Relationship Specialty Start Date End Date Ruby Muller FNP [address] [place] [address] PCP - General 12/08/13 documented as of this encounter
--- OUTSIDE RECORDS SUMMARY | 2024-04-08 16:28 | XMS_ITS | Encounter Summary ---
Author Organization [facility] Address [facility] [place] [address] Care Team Providers Care Branch Examiner Name Role Phone Nick Woodard MD Primary Care Provider [phone] Encounter Details Date Type Department Care Team (Latest Contact Info) Description 02/19/2014 11:19 AM EDT - 02/19/2014 11:59 PM EDT Hospital Encounter XRay at [address] [place] [address] Malignant neoplasm of prostate Social History Tobacco Use Types Packs/Day Years [...] AM EDT documented as of this encounter Medications at Time of Discharge Medication Sig Dispensed Refills Start Date End Date irbesartan (AVAPRO) 150 mg tablet Take 150 mg by mouth once. omeprazole (PRILOSEC) 20 mg capsule Take 20 mg by mouth daily. atorvastatin (LIPITOR) 10 mg tablet Take 10 mg by mouth daily. folic acid (FOLVITE) 1 mg tablet Take 1 mg by mouth daily. aspirin 81 mg EC tablet Take 81 mg by mouth daily. cyanocobalamin 1,000 mcg tablet Take 1,000 mcg by mouth daily. multivitamin capsule Take 1 capsule by mouth daily. cholecalciferol, Vitamin D3, (VITAMIN D) 1,000 unit Tab tablet Take by mouth daily. acetaminophen (TYLENOL) 500 mg tablet Take 2 tablets by mouth every 6 hours as needed for Pain (for MODERATE pain). 03/31/2014 04/07/2014 ibuprofen (ADVIL;MOTRIN) 800 mg tablet Take 1 tablet by mouth every 6 hours as needed for Pain (for MODERATE pain). 03/31/2014 05/03/2021 oxyCODONE (ROXICODONE) 5 mg immediate release tablet Take 1-2 tablets by mouth every 4 hours as needed for Pain. 30 tablet 0 03/31/2014 04/07/2014 docusate sodium (COLACE) 100 mg capsule Take 1 capsule by mouth 2 times daily. 03/31/2014 04/07/2014 tamsulosin (FLOMAX) 0.4 mg capsule Take 0.4 mg by mouth daily. 03/30/2014 documented as of this encounter Plan of Treatment Upcoming Encounters Date Type Department Care Team (Late st Contact Info) Description 06/17/2024 10:20 AM EDT Office Visit Dermatology at [facility] [address] [place] [address] Nick Whiteside MD [facility] [address] [place] [place] [address] documented as of this encounter Procedures Procedure Name Priority Date/Time Associated Diagnosis Comments XR CHEST PA AND LATERAL Routine 02/19/2014 11:29 AM EDT Malignant neoplasm of prostate documented in this encounter Results * XR chest routine PA & lateral (02/19/2014 11:29 AM EDT) Anatomical Region Laterality Modality Chest N/A Radiographic Susan ging 02/19/2014 11:2 9 AM EDT Narrative 02/19/2014 1:10 PM EDT Examination CHEST ROUTINE 2 VIEWS Clinical History preop Comparison None Technique PA and lateral views of the chest. Findings The lungs appear symmetrically expanded and grossly clear. ??No pleural effusion or pneumothorax is seen. ??There is a moderate hiatal hernia. ??Otherwise, the cardiomediastinal silhouette is within normal limits. ??Unremarkable gustavo and pulmonary vessels. Right-sided rib deformity consistent with old healed fracture. Impression No active cardiopulmonary pathology identified. ??Moderate hiatal hernia. Procedure Note Sultana Ojeda MD - 02/19/2014 Examination CHEST ROUTINE 2 VIEWS Clinical History preop Comparison None Technique PA and lateral views of the chest. Findings The lungs appear symmetrically expanded and grossly clear. No pleuraleffusion or pneumothorax is seen. There is a moderate hiatal hernia. Otherwise,the cardiomediastinal silhouette is within normal limits. Unremarkable hilaand pulmonary vessels. Right-sided rib deformity consistent with old healed fracture. Impression No active cardiopulmonary pathology identified. Moderate hiatal hernia. Donaldo Paulson MD IMG DX ORDERABLES documented in this encounter Visit Diagnoses Diagnosis Malignant neoplasm of prostate documented in this encounter Care Teams Branch Examiner Relationship Specialty Start Date End Date Nick Woodard MD [address] [place] [phone] PCP - General 07/26/10 11/19/22 documented as of this encounter
--- OUTSIDE RECORDS SUMMARY | 2024-04-08 16:28 | XMS_ITS | Encounter Summary ---
Author Organization [facility] [place] [address] Care Team Providers Care Electronic Scale Assembler And Tester Name Role Phone Nick Woodard MD Primary Care Provider Encounter Details Date Type Department Care Team (Latest Contact Info) Description 02/17/2014 5:35 PM EDT - 02/17/2014 11:59 PM EDT Hospital Encounter [place] [address] Donaldo Moncada MD [facility] [place] [address] Malignant neoplasm of prostate Discharge Disposition: Home [...] [facility] [address] [place] [address] Nick Whiteside MD [facility] [address] [place] [address] documented as of this encounter Procedures Procedure Name Priority Date/Time Associated Diagnosis Comments SCAN, PERIPHERAL BLOOD Routine 02/19/2014 11:00 AM EDT HEMOGRAM Routine 02/19/2014 11:00 AM EDT Malignant neoplasm of prostate DIFFERENTIAL, AUTOMATED Routine 02/19/2014 11:00 AM EDT Malignant neoplasm of prostate CBC (WITH DIFF) Routine 02/19/2014 11:00 AM EDT Malignant neoplasm of prostate BASIC METABOLIC PANEL STAT 02/19/2014 11:00 AM EDT Malignant neoplasm of prostate SURGICAL PATHOLOGY REPORT Routine 02/17/2014 11:20 AM EDT documented in this encounter Results * Scan, Peripheral Blood (02/19/2014 11:00 AM EDT) Plat estimate Normal CERNER MILLENNIUM RBC Morphology Abnormal CERNE R MILLENNIUM Microcyte 1-5 /HPF CERNER MILLENNIUM Ovalocytes 1-5 /HPF CERNER MILLENNIUM Blood specimen (specimen) 02/19/2014 11:00 AM EDT 02/19/2014 11:14 AM EDT Narrative Resulting Agency Comment Spec In Lab Donaldo Moncada MD HEMATOLOGY ORDERABLE S CERNER MILLENNIUM * (ABNORMAL) Differential, Automated (02/19/2014 11:00 AM EDT) Neutrophil % 68.2 34.0 - 71.0 % CERNER MILLENNIUM Neutrophil Absolute 3.13 1.50 - 6.30 x10(3)/mc L CERNER MILLENNIUM Lymph % 19.7 19.0 - 53.0 % CERNER MILLENNIUM Lymphocytes Abs 0.9(L) 1.0 - 3.6 x10(3)/mc L CERNER MILLENNIUM Monocyte % 9.0 4.0 - 13.0 % CERNER MILLENNIUM Monocyte Abs 0.4 0.2 - 1.0 x10(3)/mc L CERNER MILLENNIUM Eos % 2.4 0.0 - 7.0 % CERNER MILLENNIUM Eosinophils Abs 0.1 0.0 - 0.5 x10(3)/mc L CERNER MILLENNIUM Basophil % 0.7 0.0 - 2.0 % CERNER MILLENNIUM Baso Absolute 0.0 0.0 - 0.2 x10(3)/mc L CERNER MILLENNIUM Immature Gran % 0.00 0.00 - 0.66 % CERNER MILLENNIUM Comment: Immature granulocytes(IG's)percentage and absolute count will include metamyelocytes, myelocytes, and promyelocytes. Blood smears from CBCs yielding IG's will be scanned manually for concordance. If this scan disagrees with the automated IG or if promyelocytes are noted, a manual differential will be performed. Immature Gran Absolute 0.00 0.00 - 0.05 x10(3)/mc L CERNER MILLENNIUM Blood specimen (specimen) 02/19/2014 11:00 AM EDT 02/19/2014 11:14 AM EDT Narrative Resulting Agency Comment Spec In Lab Donaldo Moncada MD HEMATOLOGY ORDERABLE S CERNER MILLENNIUM * (ABNORMAL) Hemogram (02/19/2014 11:00 AM EDT) White Blood Cell 4.6 4.0 - 10.0 x10(3)/mc L CERNER MILLENNIUM Red Blood Cell 5.17 4.63 - 6.08 x10(6)/mc L CERNER MILLENNIUM Hemoglobin 12.2(L) 13.7 - 17.5 gm/dL CERNER MILLENNIUM Hematocrit 41.4 40.0 - 51.0 % CERNER MILLENNIUM Mean Cell Volume 80.1 79.0 - 92.0 fL CERNER MILLENNIUM Mean Cell Hemoglobin 23.6(L) 25.6 - 32.2 pg CERNER MILLENNIUM Mean Cell Hemoglobin Concentration 29.5(L) 32.0 - 36.5 gm/dL CERNER MILLENNIUM Platelet 214 145 - 370 x10(3)/mc L CERNER MILLENNIUM RDW Standard Deviation 48.0(H) 35.0 - 46.0 fL CERNER MILLENNIUM RDW coefficient of variation 16.7(H) 10.9 - 14.4 % CERNER MILLENNIUM Mean Platelet Volume 10.1 9.0 - 12.0 fL CERNER MILLENNIUM Blood specimen (specimen) 02/19/2014 11:00 AM EDT 02/19/2014 11:14 AM EDT Narrative Resulting Agency Comment Spec In Lab Donaldo Moncada MD HEMATOLOGY ORDERABLE S CERNER MILLENNIUM * Basic Metabolic Panel (non-fasting) (02/19/2014 11:00 AM EDT) [facility] Signature Glucose 100 60 - 199 mg/dL CERNER MILLENNIUM Comment:Diabetes: >=200 mg/d L plus symptoms Blood Urea Nitrogen 11 10 - 20 mg/dL CERNER MILLENNIUM Creatinine 0.93 0.80 - 1.50 mg/dL CERNER MILLENNIUM Comment: Please note that the pediatric reference intervals supplied above were not validated at [facility]. Results from pediatric patients should be interpreted in conjunction to the patient's age, height and muscle mass. Sodium 140 135 - 145 mmol/L CERNER MILLENNIUM Potassium 4.3 3.5 - 5.0 mmol/L CERNER MILLENNIUM Comment: Please note: ??Patients with WBC >100,000 may have falsely elevated Potassium levels. ??For accurate Potassium quantification in these patients send serum separator tube (gold top) for subsequent determinations. ??Contact the Clinical Chemistry Laboratory if there are any questions. Chloride 104 98 - 107 mmol/L CERNER MILLENNIUM Carbon Dioxide 26 22 - 31 mmol/L CERNER MILLENNIUM Anion Gap 10 5 - 15 mmol/L CERNER MILLENNIUM Calcium 9.7 8.5 - 10.5 mg/dL CERNER MILLENNIUM Est Glomerular Filtration Rate >60 >=60 CERNER MILLENNIUM Comment: This estimated GFR (eGFR) value was calculated using the MDRD equation which has been validated on patients between the ages of 18 and 70. The MDRD should not be used to assess kidney function in patients < 18 years of age or in patients with extremes of body mass, or in patients with acute kidney failure. This value should be multiplied by 1.2 for patients. For further information please copy and paste the following links into your internet browser. [email or web address] [email or web address] Blood specimen (specimen) 02/19/2014 11:00 AM EDT 02/19/2014 11:14 AM EDT Narrative Resulting Agency Comment Spec In Lab Donaldo Moncada MD CHEMISTRY ORDERABLES Performing Organization Address City/State/[facility] Phone Number [facility] * Surgical Pathology Report (02/17/2014 11:20 AM EDT) Final Diagnosis ? [facility] ? Provider: ?? DONALDO MONCADA ?Pt. Name: ?? SHERIDAN BAILEY ? Acc #: ?[id number] ?Pt. ? Col Date: ?? 02/17/2014 ? /Sex: ?1945,(68 years),Male ? Rec Date: ?? 02/18/2014 ? LOC: ?[facility] ? SURGICAL PATHOLOGY ? ---Pathologic Diagnosis--- ? CONSULTATION CASE ? Extradepartmental number: [id number]; collection date, 01/09/14. ? A - Prostatic core needle biopsies, right apex: ? Benign prostatic tissue. ? B - Prostatic core needle biopsies, right mid: ? Benign prostatic tissue. ? C - Prostatic core needle biopsies, right base: ? Adenocarcinoma, [place] grade 3+3, involving 1 of 2 ? core needle biopsies (less than 5% of the total ? tissue submitted). ? D - Prostatic core needle biopsies, left apex: ? Microscopic atypical glandular focus, cannot exclude ? adenocarcinoma. ? E - Prostatic core needle biopsies, left mid: ? Benign prostatic tissue. ? F - Prostatic core needle biopsies, left base: ? Focal high-grade PIN. ? CR-0 ? 02/18/14 ? ANW ? 02/20/14 Verified by: ? Tobias Ramirez MD ? Pathologist ? (Electronic Signature) ? The attending pathologist whose signature appears on this report has ? reviewed all diagnostic slides and has edited the gross and/or ? microscopic portion of the report in rendering the final pathologic ? diagnosis. ? ---Comment--- ? The microscopic atypical glandular focus in section D1 (left apex) is ? present in only one of the tissue sections. It is comprised of small glands ? some of which have small but prominent nucleoli. Selected sections were ? reviewed by Dr. Azar who concurs with the interpretation. ? [facility] ? Provider: ?? DONALDO MONCADA ?Pt. Name: ?? SHERIDAN BAILEY ? Acc #: ?[id number] ?Pt. ? Col Date: ?? 02/17/2014 ? /Sex: ?1945,(68 years),Male ? Rec Date: ?? 02/18/2014 ? LOC: ?[facility] ? SURGICAL PATHOLOGY ? ---Gross Description--- ? [facility] pathology slide(s) are reviewed. ??Refer to ? Diagnosis and Specimen Submitted for specific case information. ? For the full text of the [facility] report(s) please refer to Non-DH Documentation ? Pathology in the electronic health record (eDH). ? ---Clinical Information--- ? Specimen Submitted: ? CONSULTATION CASE ? A - 21 slides and 2 unstained slides labeled [id number], collection date ? 01/09/14. ? [id number] ? Report to: ? [facility] ? [address] ? [address] [place] [address] ? [place] ??[phone] 02/20/2014 2:56 PM EDT [facility] Consult Case 02/17/2014 11:2 0 AM EDT 02/17/2014 11:20 AM EDT Donaldo Moncada MD PATHOLOGY/CYTOLOGY O RDERAARIELLA Performing Organization Address City/State/[facility] Co de Phone Number [facility] [place] [address] documented in this encounter Visit Diagnoses Diagnosis Malignant neoplasm of prostate documented in this encounter Care Teams Electronic Scale Assembler And Tester Relationship Specialty Start Date End Date Nick Woodard MD [address] [place] [phone] PCP - General 07/26/10 11/19/22 documented as of this encounter
--- OUTSIDE RECORDS SUMMARY | 2024-04-08 16:28 | XMS_ITS | Encounter Summary ---
Author Organization Formerly [facility] [address] Care Team Providers Care Permit Review Assistant Name Role Phone Nick Woodard MD Primary Care Provider [phone] Reason for Visit * Reason Comments Prostate Cancer Encounter Details Date Type Department Care Team (Late st Contact Info) Description 02/19/2014 9:10 AM EDT Office Visit [place] [id number] Donaldo Paulson MD [facility] [place] [address] Malignant neoplasm of prostate (Primary Dx) Discharge [...] Sign Reading Time Taken Comments Blood Pressure 125/80 02/19/2014 9:19 AM EDT Pulse 80 02/19/2014 9:19 AM EDT Temperature - - Respiratory Rate - - Oxygen Saturation - - Inhaled Oxygen Concentration - - Weight 97.5 kg (215 lb) 02/19/2014 9:19 AM EDT Height 175.3 cm (5' 9) 02/19/2014 9:19 AM EDT Body Mass Index 31.75 02/19/2014 9:19 AM EDT documented in this encounter Progress Notes * Donaldo Paulson MD - 02/19/2014 7:18 AM EDT 68M with a recent diagnosis of prostate cancer referred by Dr. Frederick for discussion of treatment options. He underwent a 12 core TRUS biopsy in early 01/14. Path has not been reviewed here, but outside readincluded Vince 3+4=7 disease 5% at right base, with some inflammation, atrophy elsewhere and a focus of HGPIN. H/o syncope 20 yrs ago, again earlier this year; cause was attributed to dehydration. Since increased hydration, no recurrent symptoms. He has seen cardiology, most recently in 11/14, and reports a normal evaluation. He reports moderate LUTS. IPSS is 17. More than 50% of the time: frequency, intermittency; 50% of the time: weak stream; <50% sensation incomplete emptying, urgency. No dysuria or gross hematuria. LANA is 23;does not have intercourse, rather manual stimulation. No weight loss or anorexia, back or bone pain. PMH: hypertension, hyperlipidemia, hiatal hernia, hematuria, acid reflux, diverticulosis, obesity, anemia, syncope, polycthemia, BPH PSH: UHR w/ mesh, facial cyst removal, vasectomy Med: lipitor, avapro, omeprazole, vit D, folic acid, flomax, aspirin, mvi NKDA Review of Systems Constitutional: Negative for fever and chills. Eyes: Negative for visual disturbance. Respiratory: Negative for shortness of breath. Cardiovascular: Negative for chest pain. Gastrointestinal: Negative for abdominal pain. Genitourinary: Positive for frequency. Negative for dysuria, urgency, hematuria, flank pain, difficulty urinating and penile pain. Musculoskeletal: Negative for back pain. Skin: Negative for color change. Neurological: Negative for dizziness and headaches. Psychiatric/Behavioral: Negative for confusion. Physical Exam Constitutional: He appears well-developed and well-nourished. HENT: Head: Normocephalic. Eyes: Pupils are equal, round, and reactive to light. Neck: Normal range of motion. Neck supple. Cardiovascular: Normal rate. Pulmonary/Chest: Effort normal. Abdominal: Soft. He exhibits no distension. There is no tenderness. Genitourinary: Penis normal. GIBRAN 30g, right small rubbery mobile nodule by apex Musculoskeletal: Normal range of motion. Neurological: He is alert. Skin: Skin is warm and dry. Psychiatric: He has a normal mood and affect. 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 Active surveillance, surgery, and radiotherapy were presented and discussed. Regarding active surveillance, we discussed that his intermediate risk disease makes him a suboptimal candidate based on risk of disease progression. However, based on age and low quantity of Vince 3+4=7 disease, this might be considered. He states that he desires definitive treatment, and would not do well with the anxietyof surveillance. Regarding surgery, we discussed open vs minimally invasive approaches, specifically robotic assisted laparoscopic prostatectomy . We reviewed the rationale for robotic surgery, in particular decrease risk of blood loss and potentially expedited recovery. We reviewed possible complications or side effects of surgery including bleeding, infection, damage to local structures including rectum, ureter, bladder, bowel, nerves and blood vessels, urinary leak, lymph leak, bladder neck contracture, recurrence, need for additional treatment, anesthesia complications, blood clot, hernia, etc. We reviewed the details of perioperative care and expectations postoperatively. He would be acandidate for nerve sparing surgery. He has 1% likelihood of lymph node disease on nomogram, thus this would not be required. Regarding radiation treatment, we discussed that this is a comparable treatment option to surgery in terms of cure rate, however with a different side effect profile. Details of radiation were reviewed, specifically external beam therapy given his intermediate risk disease. We discussed possible side effects of radiation including bladder and bowel effects, ED, urethral stricture disease, as well as side effects of androgen deprivation therapy which typically accompanies XRT for intermediate risk disease. We discussed the option of a consultation with radiation oncology which he declines. The patient does desire to pursue surgical treatment. We will obtain PATs and a cardiology clearance note prior to scheduling. His questions were answered. I will forward this note to Dr. Frederick and appreciate the consult. documented in this encounter Plan of Treatment Upcoming Encounters Date Type Department Care Team (Late st Contact Info) Description 06/17/2024 10:20 AM EDT Office Visit Dermatology at [facility] [address] [place] [address] Nick Whiteside MD [facility] [address] [place] [address] documented as of this encounter Procedures Procedure Name Priority Date/Time Associated Diagnosis Comments EKG 12-LEAD Routine 02/19/2014 11:10 AM EDT Malignant neoplasm of prostate documented [...] hernia. Donaldo Paulson MD IMG DX ORDERABLES * EKG 12 Lead (02/19/2014 11:10 AM EDT) Ventricular rate 67 BPM MUSE SYSTEM Atrial Rate 67 BPM MUSE SYSTEM P-R Interval 150 ms MUSE SYSTEM QRS Duration 76 ms MUSE SYSTEM Q-T Interval 358 ms MUSE SYSTEM QTC Calculated (Bezet) 378 ms MUSE SYSTEM Calculated P [place] 47 degrees MUSE SYSTEM Calculated R [place] 27 degrees MUSE SYSTEM Calculated T [place] 17 degrees MUSE SYSTEM INTERPRETATION Normal sinus rhythm Normal ECG No previous ECGs available Confirmed by MD Crawford Peter A ([id number]) on 02/19/2014 12:39:45 PM MUSE SYSTEM 02/19/2014 11:1 0 AM EDT 02/19/2014 12:39 PM EDT Donaldo Paulson MD ECG ORDERABLES MUSE SYSTEM * Basic Metabolic Panel (non-fasting) (02/19/2014 11:00 AM EDT) Glucose 100 60 - 199 mg/dL CERNER MILLENNIUM Comment:Diabetes: >=200 mg/d L plus symptoms Blood Urea Nitrogen 11 10 - 20 mg/dL CERNER MILLENNIUM Creatinine 0.93 0.80 - 1.50 mg/dL CERNER MILLENNIUM Comment: Please note that the pediatric reference intervals supplied above were not validated at [facility]. Results from pediatric patients should be interpreted [...] the following links into your internet browser. [email or web address] Blood specimen (specimen) 02/19/2014 11:00 AM EDT 02/19/2014 11:14 AM EDT Narrative Resulting Agency Comment Spec In Lab Donaldo Paulson MD [facility]MISTRY [facility]ABLES [facility] documented in this encounter Visit Diagnoses Diagnosis Malignant neoplasm of prostate- Primary Malignant neoplasm of prostate documented in this encounter Care Teams Permit Review Assistant Relationship Specialty Start Date End Date Nick Woodard MD [address] [place] [phone] PCP - General 07/26/10 11/19/22 documented as of this encounter
--- OUTSIDE RECORDS SUMMARY | 2024-04-08 16:28 | XMS_ITS | Continuity of Care Document ---
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 Name Role Phone Luis Carlos Del Real Primary Care Physician Encounter [facility] Date(s): 03/30/23 - 03/30/[address] [address] Encounter Diagnosis Dysphagia(Discharge Diagnosis) - 03/30/23 Hiatal hernia(Discharge Diagnosis) - 03/30/23 Esophageal obstruction due to food impaction(Discharge Diagnosis) - 03/30/23 Food in esophagus causing other injury, initial encounter(Discharge Diagnosis) - 03/30/23 Discharge Disposition: Home or Self Care Attending Physician: Evgeny Rowley MD Admitting Physician: Evgeny Rowley MD Allergies, Adverse Reactions, Alerts No Known Medication Allergies Assessment and Plan Future Appointments Functional Status 03/30/23 Other exposure to Infectious Disease Non e Immunizations Given and Recorded Vaccine Date Status Refusal Reason SARS-CoV-2 (COVID-19) mRNA-1273 vaccine 07/09/21 R ecorded SARS-CoV-2 (COVID-19) mRNA-1273 vaccine 11/15/20 R ecorded SARS-CoV-2 (COVID-19) mRNA-1273 vaccine 10/18/20 R ecorded influenza, unspecified formulation 07/03/18 Record ed pneumococcal 13-valent conjugate vaccine 10/26/15 Recorded influenza virus vaccine, inactivated 07/04/15 Arnaldo rded influenza virus vaccine, inactivated 07/04/14 Arnaldo rded influenza virus vaccine, inactivated 06/13/13 Arnaldo rded influenza virus vaccine, inactivated 05/19/11 Arnaldo rded influenza virus vaccine, inactivated 06/06/10 Arnaldo rded zoster vaccine live 11/07/12 Recorded tetanus/diphth/pertuss (Tdap) adult/adol 09/28/11 Recorded pneumococcal 23-polyvalent vaccine 09/23/10 Record ed pneumococcal 23-polyvalent vaccine 07/04/06 Record ed tetanus-diphth toxoids (Td) adult/adol 03/03/04 Re corded Medications aspirin 81 mg oral delayed release tablet 81 mg = 1 tab, Oral, Daily, # 90 tab, 0 Refill(s) Start Date: 08/21/22 Status: Ordered atorvastatin 10 mg oral tablet 10 mg = 1 tab, Oral, Daily, # 90 tab, 3 Refill(s), Pharmacy: [id number] Start Date: 11/17/22 Status: Ordered folic acid 1 mg oral tablet 1 mg = 1 tab, Oral, Daily, # 90 tab, 3 Refill(s), Pharmacy: [id number] Start Date: 02/20/23 Status: Ordered irbesartan 150 mg oral tablet 150 mg = 1 tab, Oral, Daily, # 90 tab, 3 Refill(s), Pharmacy: [id number] Start Date: 11/17/22 Status: Ordered multivitamin adult, oral tablet 1 tab, Oral, Daily, # 90 tab, 0 Refill(s) Start Date: 08/21/22 Status: Ordered omeprazole 20 mg oral delayed release capsule 20 mg = 1 cap, Oral, Daily, # 90 cap, 3 Refill(s), Pharmacy: [id number] Start Date: 11/17/22 Status: Ordered Vitamin B-12 1000 mcg oral tablet 1,000 mcg = 1 tab, Oral, Daily, # 90 tab, 0 Refill(s) Start Date: 08/21/22 Status: Ordered Vitamin D3 1000 intl units oral tablet 25 mcg = 1 tab, Oral, Daily, 25mcg, # 30 tab, 0 Refill(s) Start Date: 08/21/22 Status: Ordered Problem List Condition Confirmation Course Effective Dates Status H ealth Status Informant Calculus of kidney and ureter Confirmed 10/21/18 Active Diverticular disease of colon Confirmed Active History of robot-assisted laparoscopic radical prostatectomy Confirmed Active History of prostate cancer Confirmed Active Hyperlipidemia Confirmed Active Hypertensive disorder Confirmed Active 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 external hemorrhoids. 11/24/09 3Umbilical Results Laboratory List Name Date CBC w/ Diff 03/30/23 Comprehensive Metabolic Panel 03/30/23 Lipase Level 03/30/23 Automated Diff 03/30/23 Most recent to oldest [Reference Range]: 1 WBC [5.0-10.0 x10^3/mcL] 6.1 x10^3/mcL (03/30/23 11:03 AM) RBC [4.6-6.0 x10^6/mcL] 5.4 x10^6/mcL (03/30/23 11:03 AM) Neutro Auto [40.0-75.0 %] 67.5 % (03/30/23 11:03 AM) Lymph Auto [20.0-50.0 %] 20.7 % (03/30/23 11:03 AM) [place] Auto [2.0-15.0 %] 8.6 % (03/30/23 11:03 AM) Basophil Auto [0.0-1.0 %] 0.3 % (03/30/23 11:03 AM) BUN [7-18 mg/dL] 19 mg/dL *HI* (03/30/23 11:03 AM) Glucose Level [74-106 mg/dL] 96 mg/dL (03/30/23 11:03 AM) Potassium Level [3.5-5.1 mmol/L] 4.1 mmo l/L (03/30/23 11:03 AM) MCV [80.0-96.0 fL] 97.0 fL *HI* (03/30/23 11:03 AM) AST [15-37 unit/L] 26 unit/L (03/30/23 11:03 AM) ALT [16-63 unit/L] 46 unit/L (03/30/23 11:03 AM) MCHC [31.0-35.0 g/dL] 32.9 g/dL (03/30/23 11:03 AM) Sodium Level [136-145 mmol/L] 143 mmol/L (03/30/23 11:03 AM) Hct [41.0-51.0 %] 51.9 % *HI* (03/30/23 AM) Lipase Level [16-77 unit/L] 28 unit/L 1 (03/30/23 11: AM) Calcium Level [8.5-10.1 mg/dL] 9.8 mg/dL (03/30/23 AM) Albumin Level [3.4-5.0 g/dL] 4.0 g/dL (03/30/23 AM) Protein Total [6.4-8.2 g/dL] 7.7 g/dL (03/30/23 AM) MCH [26.0-32.0 pg] 32.0 pg (03/30/23: AM) Neutro Absolute 4.1 x10^3/mcL *NA* (03/30/23 AM) Bilirubin Total [0.2-1.0 mg/dL] 1.1 mg/d L *HI* (03/30/23 11: AM) Hgb [14.0-18.0 g/dL] 17.1 g/dL (03/30/23 11:03 AM) Alk Phos [46-146 unit/L] 106 unit/L (03/30/23: AM) Platelets [130-450 x10^3/mcL] 217 x10^3/ mcL (03/30/23 11: AM) CO2 [21-32 mmol/L] 26 mmol/L (03/30/23 AM) eGFR Non-AA [>=60] 69 (03/30/23 11:03 AM) eGFR AA [>=60] 69 (03/30/23 11:03 AM) Chloride Level [98-107 mmol/L] 106 mmol/ L (03/30/23 AM) RDW-CV [11.5-14.5 %] 12.9 % (03/30/23 AM) Imm Gran Auto [0.0-0.9 %] 0.3 % (03/30/23 AM) Creatinine Level [0.70-1.30 mg/dL] 1.08 mg/dL (03/30/23 11:03 AM) Eos, Auto [1.0-6.0 %] 2.6 % (03/30/23 11:03 AM) 1Interpretive Data: Effective 06/22/22, [facility] has switched to a revised Lipase test.Note new ReferenceRange. Vital Signs Most recent to oldest [Reference Range]: 1 2 3 Temperature Temporal Artery [36-38 Deg C] 36.1 Deg C (03/30/23 5:23 PM) 35.6 Deg C *LOW* (03/30/23 4:53 PM) 36.1 Deg C (03/30/23 2:33 PM) Temperature Temporal Artery (DegF) [97.3-100 Deg F] 96.98 Deg F *LOW* (03/30/23 5:23 PM) Peripheral Pulse Rate [60-100 bpm] 77 bpm (03/30/23 5:23 PM) 81 bpm (03/30/23 5:15 PM) 74 bpm (03/30/23 5:05 PM) Heart Rate Monitored [60-100 bpm] 79 bpm (03/30/23 5:23 PM) 80 bpm (03/30/23 5:15 PM) 75 bpm (03/30/23 5:05 PM) Respiratory Rate [12-24 br/min] 17 br/min (03/30/23 5:23 PM) 14 br/min (03/30/23 5:15 PM) 17 br/min (03/30/23 5:05 PM) Blood Pressure [90-140/60-90 mmHg] 121/68mmHg (03/30/23 5:23 PM) 114/66mmHg (03/30/23 5:15 PM) 105/61mmHg (03/30/23 5:05 PM) Mean Arterial Pressure, Cuff [65-140 mmHg] 86 mmHg (03/30/23 5:23 PM) 82 mmHg (03/30/23 5:15 PM) 76 mmHg (03/30/23 5:05 PM) Weight Dosing 95.25 kg (03/30/23 10:50 AM) Weight Estimated 95.25 kg (03/30/23 10:42 AM) Height/Length Dosing 175.260 cm (03/30/23 10:50 AM) Height/Length Estimated 175.260 cm (03/30/23 10:42 AM) Social History Social History Type Response Tobacco Former tobacco user Tobacco Use:. Quit 1977 per day. Sex Male Hospital Discharge Instructions Patient Education 03/30/2023 16:11:47 Hiatal Hernia Hiatal Hernia A hiatal hernia occurs when part of the stomach slides above the muscle that separates the abdomen from the chest (diaphragm). A person can be born with a hiatal hernia (congenital), or it may develop over time. In almost all cases of hiatal hernia, only the top part of the stomach pushes through the diaphragm. Many people have a hiatal hernia with no symptoms. The larger the hernia, the more likely it is that you will have symptoms. In some cases, a hiatal hernia allows stomach acid to flow back into the tube that carries food from your mouth to your stomach (esophagus). This may cause heartburn symptoms. Severe heartburn symptoms may mean that you have developed a condition called gastroesophageal reflux disease (GERD). What are the causes? This condition is caused by a weakness in the opening (hiatus) where the esophagus passes through the diaphragm to attach to the upper part of the stomach. A person may be born with a weakness in thehiatus, or a weakness can develop over time. What increases the risk? This condition is more likely to develop in: ??? Older people. Age is a major risk factor for a hiatal hernia, especially if you are over the age of 50. ??? women. ??? People who are overweight. ??? People who have frequent constipation. What are the signs or symptoms? Symptoms of this condition usually develop in the form of GERD symptoms. Symptoms include: ??? Heartburn. ??? Belching. ??? Indigestion. ??? Trouble swallowing. ??? Coughing or wheezing. ??? Sore throat. ??? Hoarseness. ??? Chest pain. ??? Nausea and vomiting. How is this diagnosed? This condition may be diagnosed during testing for GERD. Tests that may be done include: ??? X-rays of your stomach or chest. ??? An upper gastrointestinal (GI) series. This is an X-ray exam of your GI tract that is taken after you swallow a chalky liquid that shows up clearly on the X-ray. ??? Endoscopy. This is a procedure to look into your stomach using a thin, flexible tube that has atiny camera and light on the end of it. How is this treated? This condition may be treated by: ??? Dietary and lifestyle changes to help reduce GERD symptoms. ??? Medicines. These may include: ??? Pwyb-ild-hjwosfk antacids. ??? Medicines that make your stomach empty more quickly. ??? Medicines that block the production of stomach acid (H2 blockers). ??? Stronger medicines to reduce stomach acid (proton pump inhibitors). ??? Surgery to repair the hernia, if other treatments are not helping. If you have no symptoms, you may not need treatment. Follow these instructions at home: Lifestyle and activity ??? Do not use any products that contain nicotine or tobacco, such as cigarettes and e-cigarettes. If you need help quitting, ask your health care provider. ??? Try to achieve and maintain a healthy body weight. ??? Avoid putting pressure on your abdomen. Anything that puts pressure on your abdomen increases the amount of acid that may be pushed up into your esophagus. ??? Avoid bending over, especially after eating. ??? Raise the head of your bed by putting blocks under the legs. This keeps your head and esophagushigher than your stomach. ??? Do not wear tight clothing around your chest or stomach. ??? Try not to strain when having a bowel movement, when urinating, or when lifting heavy objects. Eating and drinking ??? Avoid foods that can worsen GERD symptoms. These may include: ??? Fatty foods, like fried foods. ??? [place] fruits, like oranges or lemon. ??? Other foods and drinks that contain acid, like orange juice or tomatoes. ??? Spicy food. ??? Chocolate. ??? Eat frequent small meals instead of three large meals a day. This helps prevent your stomach from getting too full. ??? Eat slowly. ??? Do not lie down right after eating. ??? Do not eat 1???2 hours before bed. ??? Do not drink beverages with caffeine. These include cola, coffee, cocoa, and tea. ??? Do not drink alcohol. General instructions ??? Take lmgc-qtg-lilxcpu and prescription medicines only as told by your health care provider. ??? Keep all follow-up visits as told by your health care provider. This is important. Contact a health care provider if: ??? Your symptoms are not controlled with medicines or lifestyle changes. ??? You are having trouble swallowing. ??? You have coughing or wheezing that will not go away. Get help right away if: ??? Your pain is getting worse. ??? Your pain spreads to your arms, neck, jaw, teeth, or back. ??? You have shortness of breath. ??? You sweat for no reason. ??? You feel sick to your stomach (nauseous) or you vomit. ??? You vomit blood. ??? You have bright red blood in your stools. ??? You have black, tarry stools. Summary ??? A hiatal hernia occurs when part of the stomach slides above the muscle that separates the abdomen from the chest (diaphragm). ??? A person may be born with a weakness in the hiatus, or a weakness can develop over time. ??? Symptoms of hiatal hernia may include heartburn, trouble swallowing, or sore throat. ??? Management of hiatal hernia includes eating frequent small meals instead of three large meals aday. ??? Get help right away if you vomit blood, have bright red blood in your stools, or have black, tarry stools. This information is not intended to replace advice given to you by your health care provider. Make sure you discuss any questions you have with your health care provider. Document Revised: 07/04/2022 Document Reviewed: 07/21/2021 [employer] Patient Education ?? [address] [place]. Discharge instructions * Paola Nunez RN: PERFORM Event Display: Discharge Instructions Authored Date: [id number] SHERIDAN DURAN :1945 Age:78 years Sex:Male Visit Date:03/30/2023 Primary Care Physician: Luis Carlos Del Real MD Hospital Discharge Instructions We would like to thank you for allowing us to assist you with your healthcare needs. The following includes patient education materials and information regarding your injury/illness. Your Next Steps Instructions From Your Care Team Liquid diet for 3 days followed by soft diet only until office follow up in ~2 weeks. Chew food very thoroughly, small bites. Discharge Orders Discharge Patient Instructions, Rest today. Resume diet and activities as tolerated. Scheduled Future Appointments Sunday 8:00 AM EDT ?? With: Luis Carlos Del Real MD Where: [facility] [address] [address] Status: Confirmed Medications What How Much When Why Instructions Next Dose Unchanged aspirin (aspirin 81 mg oral delayed releasetablet) 1 tab Oral (given by mouth) Every day Unchanged atorvastatin (atorvastatin 10 mg oral tablet) 1 tab Oral (given by mouth) Every day Hyperlipidemia Unchanged cholecalciferol (Vitamin D3 1000 intl units oral tablet) 1 tab Oral (given by mouth) Every day 25mcg ?? Unchanged cyanocobalamin (Vitamin B-12 1000 mcg oral tablet) 1 tab Oral (given by mouth) Every day Unchanged folic acid (folic acid 1 mg oral tablet) 1 tab Oral (given by mouth) Every day Anemia Unchanged irbesartan (irbesartan 150 mg oral tablet) 1 tab Oral (given by mouth) Every day Unchanged multivitamin (multivitamin adult, oral tablet) 1 tab Oral (given by mouth) Every day Unchanged omeprazole (omeprazole 20 mg oral delayed release capsule) 1 Capsules Oral (given by mouth) Every day Your Summary Your Care Team Admitting Physician - Evgeny Rowley MD Attending Physician - Evgeny Rowley MD Primary Care Physician - Luis Carlos Del Real MD Your Diagnosis Dysphagia Hiatal hernia Esophageal obstruction due to food impaction Food in esophagus causing other injury, initial encounter Problems Ongoing - Any problem that you are currently receiving treatment for. 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 Anemia Diabetes mellitus Diaphragmatic hernia Epidermoid cyst of skin Iron deficiency anemia Low back pain Urinary incontinence Tests Performed/Pending Automated Diff CBC w/ Diff Comprehensive Metabolic Panel Lipase Level Discharge Vitals Temperature??(Temporal Artery) 96.1 ??F (35.6 ??C) Heart Rate??(Peripheral) 81 Heart Rate??(Monitored) 80 Respiratory Rate?? 14 Blood Pressure?? 114/66?? Height?? 69.00 in (175.260 cm) Weight??(Estimated) 210.03 lb (95.25 kg) Allergies No Known Medication Allergies Education Materials Hiatal Hernia A hiatal hernia occurs when part of the stomach slides above the muscle that separates the abdomen from the chest (diaphragm). A person can be born with a hiatal hernia (congenital), or it may develop over time. In almost all cases of hiatal hernia, only the top part of the stomach pushes through the diaphragm. Many people have a hiatal hernia with no symptoms. The larger the hernia, the more likely it is that you will have symptoms. In some cases, a hiatal hernia allows stomach acid to flow back into the tube that carries food from your mouth to your stomach (esophagus). This may cause heartburn symptoms. Severe heartburn symptoms may mean that you have developed a condition called gastroesophageal reflux disease (GERD). What are the causes? This condition is caused by a weakness in the opening (hiatus) where the esophagus passes through the diaphragm to attach to the upper part of the stomach. A person may be born with a weakness in thehiatus, or a weakness can develop over time. What increases the risk? This condition is more likely to develop in: ? Older people. Age is a major risk factor for a hiatal hernia, especially if you are over the age of50. ? women. ? People who are overweight. ? People who have frequent constipation. What are the signs or symptoms? Symptoms of this condition usually develop in the form of GERD symptoms. Symptoms include: ? Heartburn. ? Belching. ? Indigestion. ? Trouble swallowing. ? Coughing or wheezing. ? Sore throat. ? Hoarseness. ? Chest pain. ? Nausea and vomiting. How is this diagnosed? This condition may be diagnosed during testing for GERD. Tests that may be done include: ? X-rays of your stomach or chest. ? An upper gastrointestinal (GI) series. This is an X-ray exam of your GI tract that is taken after you swallow a chalky liquid that shows up clearly on the X-ray. ? Endoscopy. This is a procedure to look into your stomach using a thin, flexible tube that has a tiny camera and light on the end of it. How is this treated? This condition may be treated by: ? Dietary and lifestyle changes to help reduce GERD symptoms. ? Medicines. These may include: ? Ybzg-onh-mqeuxts antacids. ? Medicines that make your stomach empty more quickly. ? Medicines that block the production of stomach acid (H2 blockers). ? Stronger medicines to reduce stomach acid (proton pump inhibitors). ? Surgery to repair the hernia, if other treatments are not helping. If you have no symptoms, you may not need treatment. Follow these instructions at home: Lifestyle and activity ? Do not use any products that contain nicotine or tobacco, such as cigarettes and e-cigarettes. If you need help quitting, ask your health care provider. ? Try to achieve and maintain a healthy body weight. ? Avoid putting pressure on your abdomen. Anything that puts pressure on your abdomen increases the amount of acid that may be pushed up into your esophagus. ? Avoid bending over, especially after eating. ? Raise the head of your bed by putting blocks under the legs. This keeps your head and esophagus higher than your stomach. ? Do not wear tight clothing around your chest or stomach. ? Try not to strain when having a bowel movement, when urinating, or when lifting heavy objects. Eating and drinking ? Avoid foods that can worsen GERD symptoms. These may include: ? Fatty foods, like fried foods. ? [place] fruits, like oranges or lemon. ? Other foods and drinks that contain acid, like orange juice or tomatoes. ? Spicy food. ? Chocolate. ? Eat frequent small meals instead of three large meals a day. This helps prevent your stomach from getting too full. ? Eat slowly. ? Do not lie down right after eating. ? Do not eat 1???2 hours before bed. ? Do not drink beverages with caffeine. These include cola, coffee, cocoa, and tea. ? Do not drink alcohol. General instructions ? Take zbgb-vko-wdsqcgb and prescription medicines only as told by your health care provider. ? Keep all follow-up visits as told by your health care provider. This is important. Contact a health care provider if: ? Your symptoms are not controlled with medicines or lifestyle changes. ? You are having trouble swallowing. ? You have coughing or wheezing that will not go away. Get help right away if: ? Your pain is getting worse. ? Your pain spreads to your arms, neck, jaw, teeth, or back. ? You have shortness of breath. ? You sweat for no reason. ? You feel sick to your stomach (nauseous) or you vomit. ? You vomit blood. ? You have bright red blood in your stools. ? You have black, tarry stools. Summary ? A hiatal hernia occurs when part of the stomach slides above the muscle that separates the abdomen from the chest (diaphragm). ? A person may be born with a weakness in the hiatus, or a weakness can develop over time. ? Symptoms of hiatal hernia may include heartburn, trouble swallowing, or sore throat. ? Management of hiatal hernia includes eating frequent small meals instead of three large meals a day. ? Get help right away if you vomit blood, have bright red blood in your stools, or have black, tarry stools. This information is not intended to replace advice given to you by your health care provider. Make sure you discuss any questions you have with your health care provider. Document Revised: 07/04/2022 Document Reviewed: 07/21/2021 [employer] Patient Education ?? [address] [place]. Patient Name:SHERIDAN DURAN I have received this information and my questions have been answered. Patient/Drafting Technician Name: Patient/Drafting Technician Signature: Relationship to Patient: Witness Name/Signature: Date: Electronically Signed on: 03/30/2023 17:19 EDTSigned by:MS Physician Emergency department Note * Ehsan Inman MD: MODIFY, PERFORM, MODIFY Event Display: ED Note Physician Authored Date: [id number] BENSON DURANEZEKIEL Rodriguez :1945 Age:78 years Sex:Male Visit Date:03/30/2023 Primary Care Physician: Luis Carlos Del Real MD Basic Information Time Seen: Ehsan Inman MD / 03/30/2023 10:49 Chief Complaint pt states that two days ago had some steak, felt some get stuck in his throat, thought he got it upbut since then has not been able to keep anything down, including water. pt states that he was ableto get his pills down and keep them down this morning. History Of Present Illness: This is a pleasant 78-year-old gentleman with a documented history significant for but not limited to??prostate cancer, hypertension, hyperlipidemia??who presents today for evaluation of dysphagia. ??He indicates on Sunday night he ate a rather large piece of steak, felt like he got stuck in hismid esophagus/retrosternal??area. ??He was able to vomit??thereafter and felt like??all the food came out but since then he has had??persistent dysphagia including with liquids. ??He did try to take his pills this morning and feels like they got down. ??He has not had further vomiting but does havesignificant belching. ??He notes??a remote history of EGD/colonoscopy and was??not told of any significant abnormality per his recollection.?? He does note history of GERD as well and takes omeprazole. ??He otherwise denies any chest pain, abdominal pain, or other concerns today.?? Not anticoagulated. Review of Systems: Positive for dysphagia and otherwise as noted in the HPI Physical Exam Vitals & Measurements T:??36.1?C ??(Temporal Artery)?? HR:??77??(Peripheral)?? RR:??18?? BP:??127/77?? SpO2:??97%?? HT:??175.260??cm?? WT:??95.25??kg??(Estimated)?? O2 Therapy:??Room air?? Vital signs and nursing notes reviewed ?? CONSTITUTIONAL: _Pleasant,??conversive,??has intermittent belching but relatively comfortable at rest SKIN: _Warm, dry, and intact without rash EYES: _extraocular movements are grossly intact, clear conjunctiva HENT: _Normocephalic, atraumatic, moist mucus membranes NECK: _no obvious swelling, normal range of motion PULMONARY: _normal chest rise and fall, easy work of breathing with symmetric breath sounds,??no respiratory distress or stridor CARDIOVASCULAR: _regular rate, regular rhythm,??distal extremities are warm and well perfused GASTROINTESTINAL: _nondistended, no tenderness upper abdomen GENITOURINARY: _deferred NEUROLOGIC: _normal speech, moves all extremities with equal strength and coordination MUSCULOSKELETAL: _no gross deformities, atraumatic PSYCHIATRIC: _normal mood and affect ? Medical Decision Making: ? On my initial evaluation the patient appears generally well and non-toxic, they engage and answer questions appropriately, hemodynamically stable, no evidence of tachycardia, easy WOB with SpO2 saturation upper 90s to 100% on room air, afebrile by oral temperature.?? Fairly isolated complaint of dysphagia and notably denies any other chest pain or abdominal pain.?? Will??plan for chest x- ray to evaluate for potential pulmonary/pleural-based diseases or processes??although suspicion is low.?? Wewill attempt glucagon/Zofran and some carbonated beverage/Coca-Cola for him. ??If unsuccessful??we will plan to discuss with surgery for consideration of EGD. Critical Care Time Spent Procedure No Qualifying Data Reexamination/Reevaluation ? Further chart review shows scan, CT renal colic??a/10/2020??showing??small hiatal hernia at that time. ?? Labs reviewed???no significant leukocytosis or anemia. ??Renal function preserved and electrolytes generally reassuring. Chest x-ray with no moderate to large hiatal hernia.?? Patient with unsuccessful p.o.??challenge after??glucagon, Zofran, and some Coca-Cola. Discussed with Dr. Rivero who was evaluated patient at bedside we will plan for EGD this afternoon. ??Patient in agreement. ? Medical Decision-Making: Clinical lab tests: ordered and reviewed -??Yes Tests in the radiology section of CPT??: ordered and reviewed -??Yes Tests in the medicine section of CPT??: ordered and reviewed -??Yes Decide to obtain previous medical records or to obtain history from someone other than the patient:-??Yes Obtain history from someone other than the patient -??Yes Review and summarize past medical records -??Yes Discuss the patient with other providers -??Yes Independent visualization of images, tracings, or specimens? Yes Assessment/Plan 1.??Dysphagia??R13.10 2.??Hiatal hernia??K44.9 Medication Reconciliation Unchanged aspirin (aspirin 81 mg oral delayed release tablet)1 tab Oral (given by mouth) every day. ?? atorvastatin (atorvastatin 10 mg oral tablet)1 tab Oral (given by mouth) every day. Refills: 3. ?? cholecalciferol (Vitamin D3 1000 intl units oral tablet)1 tab Oral (given by mouth) every day. 25mcg. ?? cyanocobalamin (Vitamin B-12 1000 mcg oral tablet)1 tab Oral (given by mouth) every day. ?? folic acid (folic acid 1 mg oral tablet)1 tab Oral (given by mouth) every day. Refills: 3. ?? irbesartan (irbesartan 150 mg oral tablet)1 tab Oral (given by mouth) every day. Refills: 3. ?? multivitamin (multivitamin adult, oral tablet)1 tab Oral (given by mouth) every day. ?? omeprazole (omeprazole 20 mg oral delayed release capsule)1 Capsules Oral (given by mouth) every day. Refills: 3. Problem List/Past Medical History Ongoing Calculus of kidney and ureter Diverticular disease of colon History of prostate cancer History of robot-assisted laparoscopic radical prostatectomy Hyperlipidemia Hypertensive disorder Macrocytosis Skin cancer of nose Well adult exam Historical Anemia Diabetes mellitus Diaphragmatic hernia Epidermoid cyst of skin Iron deficiency anemia Low back pain Urinary incontinence Procedure/Surgical History ???Extraction of cataract (06/25/2020)???Colonoscopy (04/27/2020)???Prostatectomy (03/03/2014)???Hernia repair (09/03/1997) Medication Administration Given glucagon, 1 mg, IV Push ondansetron, 4 mg, IV Push Allergies No Known Medication Allergies Social History Electronic Cigarette/Vaping Electronic Cigarette Use: Never. Tobacco Former tobacco user Tobacco Use:. Quit 1977 per day. Family History Coronary artery disease: Mother. Hypertension: Mother and Father. Family Member(s): ?? MOTHER, at age: Unknown. Cause of : Diagnostic Results ECG Independently interpreted in the absence of a reed dipper???sinus rhythm with a rate of 80, normalaxis, MT is appropriate at 180 ms, QRS is not widened 90 ms, QTc is not prolonged at 374 ms.?? No acute appearing ST/T-segment changes or evidence of acute regional ischemia or dysrhythmia. Lab Results CBC and Differential?? LATEST RESULTS?? HISTORICAL RESULTS?? WBC?? 03/30/23 11:03?? 6.1?? 11/18/22?? 5.9?? RBC?? 03/30/23 11:03?? 5.4?? 11/18/22?? 5.2?? Hgb?? 03/30/23 11:03?? 17.1?? 11/18/22?? 16.4?? Hct?? 03/30/23 11:03?? 51.9 ??High?? 11/18/22?? 50.9?? MCV?? 03/30/23 11:03?? 97.0 ??High?? 11/18/22?? 97.5 ??High?? MCH?? 03/30/23 11:03?? 32.0?? 11/18/22?? 31.4?? MCHC?? 03/30/23 11:03?? 32.9?? 11/18/22?? 32.2?? RDW-CV?? 03/30/23 11:03?? 12.9?? 11/18/22?? 13.0?? Platelets?? 03/30/23 11:03?? 217?? 11/18/22?? 205?? Neutro Auto?? 03/30/23 11:03?? 67.5?? 11/18/22?? 67.7?? Lymph Auto?? 03/30/23 11:03?? 20.7?? 11/18/22?? 18.9 ??Low?? [place] Auto?? 03/30/23 11:03?? 8.6?? 11/18/22?? 8.7?? Eos, Auto?? 03/30/23 11:03?? 2.6?? 11/18/22?? 3.9?? Basophil Auto?? 03/30/23 11:03?? 0.3?? 11/18/22?? 0.5?? Imm Gran Auto?? 03/30/23 11:03?? 0.3?? 11/18/22?? 0.3?? Neutro Absolute?? 03/30/23 11:03?? 4.1?? 11/18/22?? 4.0? Routine Chemistry?? LATEST RESULTS?? HISTORICAL RESULTS?? Sodium Level?? 03/30/23 11:03?? 143?? 11/18/22?? 141?? Potassium Level?? 03/30/23 11:03?? 4.1?? 11/18/22?? 4.8?? Chloride Level?? 03/30/23 11:03?? 106?? 11/18/22?? 106?? CO2?? 03/30/23 11:03?? 26?? 11/18/22?? 28?? Alk Phos?? 03/30/23 11:03?? 106?? 11/18/22?? 104?? AST?? 03/30/23 11:03?? 26?? 11/18/22?? 18?? ALT?? 03/30/23 11:03?? 46?? 11/18/22?? 36?? BUN?? 03/30/23 11:03?? 19 ??High?? 11/18/22?? 18?? Glucose Level?? 03/30/23 11:03?? 96?? 11/18/22?? 105?? Creatinine Level?? 03/30/23 11:03?? 1.08?? 11/18/22?? 1.03?? eGFR AA?? 03/30/23 11:03?? 69?? 11/18/22?? 74?? eGFR Non-AA?? 03/30/23 11:03?? 69?? 11/18/22?? 74?? Calcium Level?? 03/30/23 11:03?? 9.8?? 11/18/22?? 9.8?? Protein Total?? 03/30/23 11:03?? 7.7?? 11/18/22?? 7.5?? Albumin Level?? 03/30/23 11:03?? 4.0?? 11/18/22?? 3.8?? Bilirubin Total?? 03/30/23 11:03?? 1.1 ??High?? 11/18/22?? 0.6?? Lipase Level?? 03/30/23 11:03?? 28? Electronically Signed on 03/30/23 02:37 PM Ehsan Inman MD History and physical note * Evgeny Rowley MD: PERFORM Event Display: History and Physical Authored Date: [id number] SHERIDAN DURAN :1945 Age:78 years Sex:Male Visit Date:03/30/2023 Primary Care Physician: Luis Carlos Del Real MD See paper H&P; pt examined. Proceed as planned.? Mitra Mendoza MD 03/30/2023 ?? Electronically Signed on 03/30/23 03:27 PM Evgeny Rowley MD Patient Care team information Care Team Personnel Name: Luis Carlos Del Real MD Position: Physician Member Role: Informed Provider Address: Address: [address] [place] [id number] Name: Halle Gallego Position: Nurse Member Role: ED Nurse Name: Ehsan Inman MD Position: Physician Member Role: ED Physician Address: Address: [address] [place] [address] [address] [place] [address] [place] Care Team Related Persons Name: IGNACIO CHRIS
--- OUTSIDE RECORDS SUMMARY | 2024-04-08 16:28 | XMS_ITS | Encounter Summary ---
Author Organization [facility] [place] [address] Care Team Providers Care Window Air Conditioner Installer Name Role Phone Nick Woodard MD Primary Care Provider [phone] Encounter Details Date Type Department Care Team (Late st Contact Info) Description 03/05/2014 [place] [id number] Donaldo Paulson MD [facility] [place] [address] Social History Tobacco Use Types Packs/Day Years [...] encounter Miscellaneous Notes * Telephone Encounter - Donaldo Paulson MD - 03/05/2014 9:21 AM EDT DIscussed [place] downgrade w/ pt. Reviewed that with low risk cancer, surveillance becomes a more reasonable option. He does desire to continue w/ surgical treatment to avoid anxiety and the need for repeat biopsy etc. His questions were answered in detail. documented in this encounter Plan of Treatment Upcoming Encounters Date Type Department Care Team (Late st Contact Info) Description 06/17/2024 10:20 AM EDT Office Visit Dermatology at [facility] [address] [place] [address] Nick Whiteside MD [facility] DR RAJESH [place] [address] documented as of this encounter Visit Diagnoses Not on filedocumented in this encounter Care Teams Window Air Conditioner Installer Relationship Specialty Start Date End Date Nick Woodard MD [address] [place] [phone] PCP - General 07/26/10 11/19/22 documented as of this encounter
--- OUTSIDE RECORDS SUMMARY | 2024-04-08 16:28 | XMS_ITS | Encounter Summary ---
Author Organization [facility] Address [address] [place] [address] Care Team Providers Care Pluck Trimmer Name Role Phone Renzo Ruby GARNER Primary Care Provider + Encounter Details Date Type Department Care Team (Late st Contact Info) Description 04/20/2020 Lab Requisition [facility] Pathology & Laboratory Medicine - [facility] [address] [place], [place] [address] Outr Resulting Lab, Provider Social History Tobacco Use Types Packs/Day Years [...] Procedure Name Priority Date/Time Associated Diagnosis Comments DO NOT ORDER STANDALONE - BROAD COVID TEST Today 04/20/2020 13:15 EDT COVID-19 TESTING Routine 04/20/2020 13:1 5 EDT documented in this encounter Results * DO NOT ORDER STANDALONE - BROAD COVID TEST (04/20/2020 13:15 EDT) COVID-19 rt-PCR Result NEGATIVE Negative 04/21/2020 20:36 EDT [facility] Comment: 2019-novel Coronavirus (2019-nCoV) not detected by the qRT-PCR assay. Consider testing for other respiratory viruses or re-collecting for 2019-nCoV testing. Note: Optimum timing for peak viral levels during infections caused by 2019-nCoV have not been determined. Collection of multiple specimens from the same patient may be necessary to detect the virus. Limitations Positive results are indicative of active infection with SARS-CoV-2 but do not rule out bacterial infection or co-infection with other viruses. The agent detected may not be the definite cause of disease. In addition, detection of viral RNA may not indicate the presence of infectious virus or that SARS-CoV-2 is the causative agent for clinical symptoms. Negative results do not preclude SARS-CoV-2 infection and should not be used as the sole basis for patient management decisions. Negative results must be combined with clinical observations, patient history, and epidemiological information. False negative results may also occur if amplification inhibitors are present in the specimen or if inadequate numbers of organisms are present in the specimen. Optimum specimen types and timing for peak viral levels during infections caused by SARS-CoV-2 have not been fully determined. Collection of multiple specimens (types and time points) from the same patient may be necessary to detect the virus. The test was validated for use with upper respiratory specimens obtained via nasopharyngeal or oropharyngeal swabs in VTM, UTM, M4, M5, M6, saline, and MTM media. The performance of this test has not been established for other specimens. Specimens collected using other FDA recommended Specimen Collection Materials listed in the FDA COVID-19 Diagnostic Technologies communication (November 27, 2019) are processed with the caveat that they were not all validated for use with this test and the result must be interpreted in this context. Furthermore, a false negative results may occur if a specimen is improperly collected, transported or handled. If the virus mutates in the RT-PCR target region, SARS-CoV-2 may not be detected or may be detected less predictably. Inhibitors or other types of interference may produce a false negative result. An interference study evaluating the effect of common cold medications was not performed. This test is not FDA-cleared but its performance characteristics were established by our CLIA-certified, CAP-accredited, high complexity laboratory in accordance with CLIA regulations, [employer] (CAP) guidelines (Nov 20, 2019), and FDA guidance (Nov 01, 2019). This test is only for use under the Food and Drug Administration's Emergency Use Authorization. Swab ENTIRE NASOPHARYNX / Unknown 04/20/2020 13:15 EDT 04/20/2020 20:49 EDT Provider Outr Resulting Lab MICROBIOLOGY - GENERAL ORDERABLES [facility] [place], [place] * COVID-19 TESTING (04/20/2020 13:15 EDT) COVID-19 rt-PCR Result NEGATIVE Negative 04/22/2020 0:26 EDT [facility] Comment: 2019-novel Coronavirus (2019-nCoV) not detected by the qRT-PCR assay. Consider testing for other respiratory viruses or re-collecting for 2019-nCoV testing. Note: Optimum timing for peak viral levels during infections caused by 2019-nCoV have not been determined. Collection of multiple specimens from the same patient may be necessary to detect the virus. Limitations Positive results are indicative of active infection with SARS-CoV-2 but do not rule out bacterial infection or co-infection with other viruses. The agent detected may not be the definite cause of disease. In addition, detection of viral RNA may not indicate the presence of infectious virus or that SARS-CoV-2 is the causative agent for clinical symptoms. Negative results do not preclude SARS-CoV-2 infection and should not be used as the sole basis for patient management decisions. Negative results must be combined with clinical observations, patient history, and epidemiological information. False negative results may also occur if amplification inhibitors are present in the specimen or if inadequate numbers of organisms are present in the specimen. Optimum specimen types and timing for peak viral levels during infections caused by SARS-CoV-2 have not been fully determined. Collection of multiple specimens (types and time points) from the same patient may be necessary to detect the virus. The test was validated for use with upper respiratory specimens obtained via nasopharyngeal or oropharyngeal swabs in VTM, UTM, M4, M5, M6, saline, and MTM media. The performance of this test has not been established for other specimens. Specimens collected using other FDA recommended Specimen Collection Materials listed in the FDA COVID-19 [employer] communication (November 27, 2019) are processed with the caveat that they were not all validated for use with this test and the result must be interpreted in this context. Furthermore, a false negative results may occur if a specimen is improperly collected, transported or handled. If the virus mutates in the RT-PCR target region, SARS-CoV-2 may not be detected or may be detected less predictably. Inhibitors or other types of interference may produce a false negative result. An interference study evaluating the effect of common cold medications was not performed. This test is not FDA-cleared but its performance characteristics were established by our CLIA-certified, CAP-accredited, high complexity laboratory in accordance with CLIA regulations, [employer] [place] [employer] (CAP) guidelines (Nov 20, 2019), and FDA guidance (Nov 01, 2019). This test is only for use under the Food and Drug Administration's Emergency Use Authorization. Performing Lab [facility] 04/22/2020 0:26 EDT [facility] Swab 04/20/2020 13:1 5 EDT 04/20/2020 20:49 EDT Provider Outr Resulting Lab MICROBIOLOGY - GENERAL ORDERABLES [facility] [address] [place] [address] [facility] [place], [place] documented in this encounter Visit Diagnoses Not on filedocumented in this encounter Care Teams Pluck Trimmer Relationship Specialty Start Date End Date Ruby Muller FNP [address] [place] [address] PCP - General 12/08/13 documented as of this encounter
--- OUTSIDE RECORDS SUMMARY | 2024-04-08 16:28 | XMS_ITS | Continuity of Care Document ---
Author Organization [facility] Address [address] [place] [address] Care Team Providers Care Director Of Housing And Energy Services Name Role Phone Jan Will Primary Care Physician Encounter [id number] Date(s): 11/23/23 - 11/23/23 [facility] [address] [place] [address] Discharge Disposition: Home or Self Care Attending Physician: Jan Will Admitting Physician: Jan Will Referring Physician: Jan Will Allergies, Adverse Reactions, Alerts No Known Medication Allergies Assessment and Plan Future Appointments Immunizations Given and Recorded Vaccine Date Status Refusal Reason influenza virus vaccine, inactivated 1 06/05/23 Re corded influenza virus vaccine, inactivated 07/04/15 Arnaldo rded influenza virus vaccine, inactivated 07/04/14 Arnaldo rded influenza virus vaccine, inactivated 06/13/13 Arnaldo rded influenza virus vaccine, inactivated 05/19/11 Arnaldo rded influenza virus vaccine, inactivated 06/06/10 Arnaldo rded SARS-CoV-2 (COVID-19) mRNA-1273 vaccine 07/09/21 R ecorded SARS-CoV-2 (COVID-19) mRNA-1273 vaccine 11/15/20 R ecorded SARS-CoV-2 (COVID-19) mRNA-1273 vaccine 10/18/20 R ecorded influenza, unspecified formulation 07/03/18 Record ed pneumococcal 13-valent conjugate vaccine 10/26/15 Recorded zoster vaccine live 11/07/12 Recorded tetanus/diphth/pertuss (Tdap) adult/adol 09/28/11 Recorded pneumococcal 23-polyvalent vaccine 09/23/10 Record ed pneumococcal 23-polyvalent vaccine 07/04/06 Record ed tetanus-diphth toxoids (Td) adult/adol 03/03/04 Re corded 1Result Comment: [employer] aspirin 81 mg oral delayed release tablet 81 mg = 1 tab, Oral, Daily, # 90 tab, 0 Refill(s) Start Date: 08/21/22 Status: Ordered atorvastatin 10 mg oral tablet 10 mg = 1 tab, Oral, Daily, # 90 tab, 3 Refill(s), Pharmacy: [facility] Start Date: 11/17/22 Status: Ordered folic acid 1 mg oral tablet 1 mg = 1 tab, Oral, Daily, # 90 tab, 3 Refill(s), Pharmacy: [facility] Start Date: 02/20/23 Status: Ordered irbesartan 150 mg oral tablet 150 mg = 1 tab, Oral, Daily, # 90 tab, 3 Refill(s), Pharmacy: [facility] Start Date: 11/17/22 Status: Ordered multivitamin adult, oral tablet 1 tab, Oral, Daily, # 90 tab, 0 Refill(s) Start Date: 08/21/22 Status: Ordered omeprazole 20 mg oral delayed release capsule 20 mg = 1 cap, Oral, Daily, # 90 cap, 3 Refill(s), Pharmacy: [facility] Start Date: 11/17/22 Status: Ordered Vitamin [...] Procedure Date Related Diagnosis Body Site Status EGD - Esophagogastroduodenoscopy 03/29/23 Completed Extraction of cataract 1 06/24/20 Completed Colonoscopy 2 04/26/20 Completed Prostatectomy 03/02/14 Completed Hernia repair 3 09/02/97 Completed 1Right 24 sm polyps of colon, moderate diverticulosis. external hemorrhoids. 11/24/09 3Umbilical Results Laboratory List Name Date Lipid Panel 11/23/23 Most recent to oldest [Reference Range]: 1 Cholesterol Total [50-200 mg/dL] 131 mg/ dL (11/23/23 9:11 AM) LDL [0-130 mg/dL] 58 mg/dL (11/23/23 9:11 AM) HDL [40-60 mg/dL] 54 mg/dL (11/23/23 9:11 AM) Triglycerides [0-150 mg/dL] 97 mg/dL (11/23/23 9:11 AM) Social History Social History Type Response Tobacco Former tobacco user Tobacco Use:. Quit 1977 per day. Sex Male Patient Care team information Care Team Personnel Name: Luis Carlos Del Real MD Position: Physician Member Role: Informed Provider Address: Address: [address] [place] [address] Name: Jan Will Position: Physician Member Role: Primary Care Physician Address: Address: [address] [place] [address] [address] Care Team Related Persons Name: IGNACIO CHRIS
--- OUTSIDE RECORDS SUMMARY | 2024-04-08 16:28 | XMS_ITS | Encounter Summary ---
Author Organization [facility] Address [address] [place] [id number] Care Team Providers Care Chilling Hood Operator Name Role Phone Ruby Muller Primary Care Provider + Reason for Visit * Reason Comments BPH With Obstruction Encounter Details Date Type Department Care Team (Late st Contact Info) Description 01/09/2014 9:45 EDT Office Visit [facility] Urology [address] [place] [id number] Unknown, Provider, Urology, Ultrasound BPH (benign prostatic hyperplasia) (Primary Dx) Social History Tobacco Use Types Packs/Day Years Used Date Smoking Tobacco: Former Cigarettes Q uit: 12/16/1975 Alcohol Use Standard Drinks/Week Comments Yes 7 (1 standard drink = 0.6 oz pur e alcohol) Sex and Gender Information Value Date Recorded Sex Assigned at Not on file Gender Identity Not on file Sexual Orientation Not on file documented as of this encounter Progress Notes * Jonas Quinones - 01/09/2014 0935 EDT Prostate ultrasound and biopsy performed 01/09/2014 documented in this encounter Plan of Treatment Not on file documented as of this encounter Visit Diagnoses Diagnosis BPH (benign prostatic hyperplasia)- Primary Unspecified hyperplasia of prostate without urinary obstruction and other lower urinary tract symptoms (LUTS) documented in this encounter Care Teams Chilling Hood Operator Relationship Specialty Start Date End Date Ruby Muller FNP [address] [place], [place] [address] PCP - General 12/08/13 documented as of this encounter
--- OUTSIDE RECORDS SUMMARY | 2024-04-08 16:28 | XMS_ITS | Clinical Summary ---
Author Organization [facility] Address [address] [place] [address] Care Team Providers Care Felt Washing Machine Tender Name Role Phone Renzo Ruby GARNER Primary Care Provider + Allergies No known active allergies Medications Medication Sig Dispensed Refills Start Date End Date Status ATORVASTATIN CALCIUM (LIPITOR ORAL) Take 10 mg by mouth. Active TAMSULOSIN HCL (FLOMAX ORAL) Take 0.4 mg by mouth. Active FOLIC ACID ORAL Take 1 mg by mouth. Active IRBESARTAN (AVAPRO ORAL) Take 150 mg by mouth. Active OMEPRAZOLE ORAL Take 20 mg by mouth. Active ERGOCALCIFEROL, VITAMIN D2, (VITAMIN D ORAL) Take by mouth. Active MULTIVIT &MINERALS/FERROUS FUM (MULTI VITAMIN ORAL) Take by mouth. Active CYANOCOBALAMIN, VITAMIN B-12, (VITAMIN B-12 ORAL) Take by mouth. Active ASPIRIN ORAL Take 81 mg by mouth. Active Active Problems Problem Noted Date Diagnosed Date BPH (benign prostatic hyperplasia) 01/09/2014 Medical History Medical History Date Comments GERD (gastroesophageal reflux disease) Hypertension Family History Medical History Relation Comments Heart Disease Father Heart Disease Mother Relation Status Comments Father Mother Social History Tobacco Use Types Packs/Day Years [...] on file Sexual Orientation Not on file Obstetrics History Last Filed Vital Signs Vital Sign Reading Time Taken Comments Blood Pressure - - Pulse - - Temperature - - Respiratory Rate - - Oxygen Saturation - - Inhaled Oxygen Concentration - - Weight 95.3 kg (210 lb) 01/09/2014 09 EDT Height 177.8 cm (5' 10) 01/09/2014928 EDT Body Mass Index 30.13 01/09/2014 09 EDT Plan of Treatment Health Maintenance Due Date Last Done Comments RSV Immunization ( o r 60+ Years) (1 - 1-dose 60+ series) 2003 Fall Risk Screening 02/25/2008 COVID-19 Vaccine (2022- season) 2023 Care Teams Felt Washing Machine Tender Relationship Specialty Start Date End Date Ruby Muller FNP [address] [place] [address] PCP - General 12/08/13
--- OUTSIDE RECORDS SUMMARY | 2024-04-08 16:28 | XMS_ITS | Referral Summary ---
Author Organization [facility] Address [address] [place] [address] Care Team Providers Care Nursing Program Director Name Role Phone Ruby Muller Primary Care Provider + Allergies No known [...] Diagnosed Date BPH (benign prostatic hyperplasia) 01/09/2014 Social History Tobacco Use Types Packs/Day Years [...] on file Sexual Orientation Not on file Last Filed Vital Signs Vital Sign Reading Time Taken Comments Blood Pressure - - Pulse - - Temperature - - Respiratory Rate - - Oxygen Saturation - - Inhaled Oxygen Concentration - - Weight 95.3 kg (210 lb) 01/09/2014 0929 EDT Height 177.8 cm (5' 10) 01/09/2014 0929 EDT Body Mass Index 30.13 01/09/2014 0929 EDT Plan of Treatment Not on file Care Teams Nursing Program Director Relationship Specialty Start Date End Date Ruby Muller FNP [address] [place] [address] PCP - General 12/08/13
--- OUTSIDE RECORDS SUMMARY | 2024-04-08 16:28 | XMS_ITS | Encounter Summary ---
Author Organization Formerly [facility] [place] [address] Care Team Providers Care Photographic Technician Name Role Phone Erika Shoemaker MD Primary Care Provider [phone] Encounter Details Date Type Department Care Team (Latest Contact Info) Description 03/30/2014 5:40 AM EDT - 03/31/2014 11:55 AM EDT Hospital Encounter [address] [place] [id number] Quinn Paulson MD [facility] [address] Discharge Disposition: Home Social History Tobacco Use [...] Sign Reading Time Taken Comments Blood Pressure 132/77 03/31/2014 9:48 AM EDT Pulse 84 03/31/2014 9:48 AM EDT Temperature 37.1 ??C (98.8 ??F) 03/31/2014 9:48 AM ED T Respiratory Rate 17 03/31/2014 9:48 AM EDT Oxygen Saturation 98% 03/31/2014 9:48 AM EDT Inhaled Oxygen Concentration - - Weight 97.5 kg (215 lb) 03/30/2014 6:12 AM EDT Height 175.3 cm (5' 9) 03/30/2014 6:12 AM EDT Body Mass Index 31.75 03/30/2014 6:12 AM EDT documented in this encounter Discharge Instructions * Patient Instructions* Radha Gibson PA - 03/31/2014 7:31 AM EDT DISCHARGE INSTRUCTIONS FOLLOWING PROSTATECTOMY Call your doctor for: fevers greater than 100.5 severe nausea or vomiting increasing pain not controlled by pain medications increasing redness or drainage from incisions decreased urine output our if your catheter is no longer draining. The number for questions is [phone] before 5 PM weekdays and [phone] after 5 PM and weekends. Activity level: No heavy lifting greater than 10 pounds (about equal to a full gallon jug) for the next 4 weeks or until cleared to do so at follow-up appointment. Otherwise activity as tolerated by comfort level. Rivera Catheter Care: Keep the catheter in place to open drainage, attached to either the large drainage bag or small leg bag. Diet: You may resume your regular diet as tolerated. Driving: No driving while still taking opioid pain medications (wait at least 6- 8 hours since last dose). No driving with your catheter in place or if you are still experiencing postoperative pain asit may limit your ability to react quickly if necessary. Shower/Bath: You may shower and get incisions wet. Pat dry immediately following. Do not scrub themvigorously for the next 2-3 weeks. Do not soak incisions (i.e. soaking in bath or swimming) until told you may do so by a doctor, as this may promote a wound infection. Wound Care: You may cover wounds with sterile gauze as needed to prevent incision rubbing on clothes or for any seepage. Pain Control: Take Ibuprofen 800mg every 8 hours as needed for the next two weeks for pain control.If you are still having moderate pain, take oxycodone as prescribed. Bowel regimen: Take Colace twice daily to keep bowel movements soft. If you experience diarrhea or more than 2 bowel movements/day, stop taking the colace. Follow up Appointments: Follow-up appointment will be scheduled with Urology in 1 week for a voiding trial and wound check. You will have another appointment in 4-6 weeks for PSA check. Please call [phone] (clinic number for appointments) to confirm date and time of your appointment if you do not receive it in 2-3 days. documented in this encounter Medications at Time of Discharge [...] by mouth 2 times daily. 03/31/2014 04/07/2014 documented as of this encounter Progress Notes * Misti Carr RN - 03/31/2014 9:42 AM EDT 68 year old admitted s/p@LAPAROSCOPIC PROSTATECTOMY, ROBOTICS ASSISTED 03/30/2014 - Met with patient this am- just reviewed teaching video Declines VNA support @ discharge Record reviewed and patient discussed with multidisciplinary team. No discharge needs identified atthis time. CRC remains available as needed for coordination of care and discharge planning * Karlo Hendricks RN - 03/30/2014 3:57 PM EDT Pt arrived to unit in bed via transport and placed in room 211A. Pt is A&O, pleasant and cooperative. Oriented to room and call andrew function. Teaching performed on Incentive Spirometer in which Pt demonstrated proper technique. Pt denies nausea and is drinking ice water w/o adverse effects. Ptreports abdominal gas pain cramping that is tolerable at this time. Frequent visual checks made by staff to ensure Pt safety and anticipate Pt needs. * Deepa Thomas RN - 03/30/2014 2:03 PM EDT 1317 - Pt arrived to PACU via bed. Monitors placed, alarms set and audible. 1455 - Report called to RN on . documented in this encounter H&P Notes * Too Connors - 03/30/2014 7:10 AM EDT Mr. Bailey presents for prostatectomy No change in his H&P or ROS. NAD A and O RRR Mild right base rales. Improved with coughing. Abdomen soft. OK to proceed to surgery. documented in this encounter Miscellaneous Notes * Miscellaneous - Provider, Scanning - 04/01/2014 10:47 AM EDT * Miscellaneous - Provider, Scanning - 04/01/2014 10:47 AM EDT * Plan of Care - [place] Sosa RN - 03/31/2014 11:33 AM EDT Problem: General Plan of Care Goal: Plan of Care Review Outcome: Outcome achieved Date Met: 03/31/14 Tolerating food & liquids. Walks with steady gait, gets relief with pain med. Saw video on leg bag changing & PT ABLE TO CHANGE BAG BY SELF. Reviewed d/c info with pt. D/C'd to home in WC with friend accompanying pt. * Discharge Summary - Radha Gibson PA - 03/31/2014 7:28 AM EDT Discharge Summary Patient Name: Sheridan Bailey Patient Age: 69 y.o. Language: Venezuelan Race: White Ethnicity: Not nor Admit date: 03/30/2014 Discharge date: 03/31/2014 Attending Physician: Quinn Paulson MD Discharge Physician: same Discharge Diagnoses (Hospital Problems) and Secondary Diagnoses (Chronic Problems): Prostate Cancer Operations/Major Procedures: Procedure(s): @LAPAROSCOPIC PROSTATECTOMY, ROBOTICS ASSISTED 03/30/2014 History of Presentation: 68M with a recent diagnosis of prostate cancer referred by Dr. Frederick for discussion of treatment options. He underwent a 12 core TRUS biopsy in early 01/14. Path has not been reviewed here, but outside readincluded Hampton 3+4=7 disease 5% at right base, with [...] loss or anorexia, back or bone pain. Hospital Course: Patient was admitted electively to [facility] via the same day surgery program and underwent the above procedure. He tolerated surgery well and was tranferred from the PACU to the general floor in good condition a few hours after surgery. Patient's hospital course was uncomplicated. He remained afebrile,with stable vital signs throughout his hospital stay. Today, on POD# 1 he has met all criteria for discharge home: his pain is well controlled with medications by mouth, he is tolerating a regular diet, is voiding spontaneously without difficulties, and is up and ambulating without complications. He has been deemed safe for discharge. Vital Signs at Discharge: Weight: Wt Readings from Last 1 Encounters: 03/30/14 97.523 kg (215 lb) Height: Ht Readings from Last 1 Encounters: 03/30/14 175.3 cm (5' 9) BMI: Body mass index is 31.74 kg/(m^2). Last value Range last 24 hrs Temperature Temp: 37.1 ??C (98.8 ??F) Temp: [36.3 ??C (97.3 ??F)-37.1 ??C (98.8 ??F)] Heart Rate Heart Rate: 84 Heart Rate: [73-107] Blood Pressure BP: 132/77 mmHg BP: (106-144)/(59-85) Respiratory Rate Resp: 17 Resp: [14-17] SpO2 SpO2: 98 % SpO2: [94 %-99 %] Exam at Discharge: General: NAD CV: RRR Pulm: CTAB Abd: soft, nondistended, appropriately tender Incision: c/d/i. RADHA site dressed Ext: warm, well perfused, no edema Functional and Cognitive Status: Ambulating and cognitively intact. Important Studies and Lab Data: None. Studies: None Pending Studies and Lab Data: Surgical Pathology Discharge Conditions/Prognosis: Stable Discharge to: Home Updated Allergies/ADRs: No Known Allergies Immunizations Given this Hospitalization: There is no immunization history on file for this patient. Discharge Medications: Your Medications As of 03/31/2014 10:19 AM New Medications Dose Details acetaminophen 500 mg tablet Commonly known as: TYLENOL Take 2 tablets by mouth every 6 hours as needed for Pain (for MODERATE pain). 1000 mg Refills: 0 docusate sodium 100 mg capsule Commonly known as: COLACE Take 1 capsule by mouth 2 times daily. 100 mg Refills: 0 ibuprofen 800 mg tablet Commonly known as: ADVIL;MOTRIN Take 1 tablet by mouth every 6 hours as needed for Pain (for MODERATE pain). 800 mg Refills: 0 oxyCODONE 5 mg immediate release tablet Commonly known as: ROXICODONE Take 1-2 tablets by mouth every 4 hours as needed for Pain. 5-10 mg Quantity: 30 tablet Refills: 0 Continued medications, unchanged Dose Details aspirin 81 mg EC tablet Take 81 mg by mouth daily. 81 mg Refills: 0 atorvastatin 10 mg tablet Commonly known as: LIPITOR Take 10 mg by mouth daily. 10 mg Refills: 0 cyanocobalamin 1,000 mcg tablet Take 1,000 mcg by mouth daily. 1000 mcg Refills: 0 folic acid 1 mg tablet Commonly known as: FOLVITE Take 1 mg by mouth daily. 1 mg Refills: 0 irbesartan 150 mg tablet Commonly known as: AVAPRO Take 150 mg by mouth once. 150 mg Refills: 0 multivitamin capsule Take 1 capsule by mouth daily. 1 capsule Refills: 0 omeprazole 20 mg capsule Commonly known as: PriLOSEC Take 20 mg by mouth daily. 20 mg Refills: 0 Vitamin D 1,000 unit Tab tablet Take by mouth daily. Generic drug: cholecalciferol (Vitamin D3) Refills: 0 STOPPED Medications tamsulosin 0.4 mg capsule Commonly known as: FLOMAX Smoking Status at Discharge: History Smoking status ??? Former Smoker ??? Quit date: 02/20/1976 Smokeless tobacco ??? Never Used Instructions Given to Patient at Discharge: Patient Instructions DISCHARGE INSTRUCTIONS FOLLOWING PROSTATECTOMY Call your doctor for: fevers greater than 100.5 severe nausea or vomiting increasing pain not controlled by pain medications increasing redness or drainage from incisions decreased urine output our if your catheter is no longer draining. The number for questions is [phone] before 5 PM weekdays and [phone] after 5 PM and weekends. Activity level: No heavy lifting greater than 10 pounds (about equal to a full gallon jug) for the next 4 weeks or until cleared to do so at follow-up appointment. Otherwise activity as tolerated by comfort level. Rivera Catheter Care: Keep the catheter in place to open drainage, attached to either the large drainage bag or small leg bag. Diet: You may resume your regular diet as tolerated. Driving: No driving while still taking opioid pain medications (wait at least 6- 8 hours since last dose). No driving with your catheter in place or if you are still experiencing postoperative pain asit may limit your ability to react quickly if necessary. Shower/Bath: You may shower and get incisions wet. Pat dry immediately following. Do not scrub themvigorously for the next 2-3 weeks. Do not soak incisions (i.e. soaking in bath or swimming) until told you may do so by a doctor, as this may promote a wound infection. Wound Care: You may cover wounds with sterile gauze as needed to prevent incision rubbing on clothes or for any seepage. Pain Control: Take Ibuprofen 800mg every 8 hours as needed for the next two weeks for pain control.If you are still having moderate pain, take oxycodone as prescribed. Bowel regimen: Take Colace twice daily to keep bowel movements soft. If you experience diarrhea or more than 2 bowel movements/day, stop taking the colace. Follow up Appointments: Follow-up appointment will be scheduled with Urology in 1 week for a voiding trial and wound check. You will have another appointment in 4-6 weeks for PSA check. Please call [phone] (clinic number for appointments) to confirm date and time of your appointment if you do not receive it in 2-3 days. General Instructions None Future Appointments and Orders Future Appointments: Provider: Department: Dept Phone: Center: 04/07/2014 11:00 AM Testing Urology Urology [phone] [facility] 04/07/2014 11:20 AM Quinn Paulson MD Urology [phone] [facility] Follow-Up: Future Appointments Date Time Provider Department Center 04/07/2014 11:00 AM Urology, Testing [facility] 04/07/2014 11:20 AM Quinn Paulson MD [facility] Primary Care Provider: ERIKA SHOEMAKER MD [phone] Follow-up Recommendations for Providers: Please see discharge instructions. Call your doctor if: Please call your doctor immediately or go to an Emergency Department if you notice worsening pain not controlled by pain medications, uncontrolled headache, vision changes, chest pain, difficulty breathing, persistent nausea and vomiting, new redness or swelling in any extremities, new onset weakness or changes in sensation, or for any fevers greater than 101.3 F. Your care was managed by the Urology Team at [facility]. If you have any questions or concerns, please feel free to contact us. Provider Contact Information: Urology Clinic: [facility] (after business hours): * Plan of Care - Arabella Cortez RN - 03/30/2014 9:19 PM EDT Problem: General Plan of Care Goal: Individualization and Mutuality Pt diet advance to regular diet for dinner, denies nausea and tolerating well. Pt denies significant pain, is aware of medications that are available should he feel he needs them. Pt educated on incentive spirometer and encouraged to use several times an hour. Pt hoping for discharge tomorrow. Willcontinue to monitor. 2100-Pt requesting something for pain. Administered 15 mg IV toradol 0130-Pt with increased pain 04/12. Administered 10 mg Oxycodone as well as 1000 mg tylenol * Op Note - Quinn Paulson MD - 03/30/2014 1:57 PM EDT [facility] Operative Note Patient Name: Sheridan Bailey : [id number] MR#: [id number] Case Date: 03/30/2014 Surgeon: Surgeon(s) and Role: * Quinn Paulson MD - Primary * Too Connors MD - Resident-Surgeon Chief * Chad Wilcox MD - Resident-Surgeon Skip Preoperative diagnosis: PROSTATE CANCER Postoperative diagnosis: PROSTATE CANCER Procedure(s): @LAPAROSCOPIC PROSTATECTOMY, ROBOTICS ASSISTED * No anesthesia type entered * Estimated Blood Loss: 100cc Drains: 19fr michael, 18fr rivera Disposition: awakened from anesthesia, extubated and taken to the recovery room in a stable condition, having suffered no apparent untoward event. Condition: doing well without problems (Please see the Surgical Encounter Summary for any Implant and Specimen details pertinent to this patient.) HPI/Surgical Indications: Prostate cancer desiring surgical therapy Procedure Description: The patient was brought to the OR and bilateral SCD boots were placed. 2g ancef IV perioperatively was administered. The patient was given general anesthesia and placed in lithotomy position with pressure points carefully padded. He was secured to the table, shaved prepped and draped in standard sterile fashion. He did not insufflate easily thus we cut down below his umbilicus to fascia; two 0-vicryl stay sutures were placed and the fascia incised. The optiview trocar was placed under vision tothe abdomen. The abdomen was filled to 15mmHg without difficulty. The abdomen was inspected and there was no sign of intraabdominal injury. Two robotic trocars were placed under vision in the right abdomen. A robotic trocar was placed in the mid left abdomen, and a 10mm assistant child care teacher port placed several cm superior to the ASIS. A 5mm port was placed in the left upper abdomen under vision. The patientwas placed in Trendelenberg position, and the robot was docked with monopolar scissors in right hand, bipolar grasper in the left hand, and the prograsp in the 4th arm. An incision was made on the per itoneum beneath the bladder. The vasa were identified and dissected. They were ligated and the bilateral seminal vesicles were also dissected free. The posterior plane was developed to the apex. Then, the bladder was dropped from the anterior abdominal wall by incising lateral to the medial umbilical ligaments. The pubic bone was identified and the space of Retzius developed. Fat was removedfrom the prostate and endopelvic fascia. The endopelvic fascia was incised bilaterally and the levator muscle swept from the prostate. The puboprostatic ligaments were taken and the apex exposed. Thesuperficial dorsal vein was controlled with cautery. Then, the dorsal vein was ligated with 2-0 vicryl suture; this suture was passed through the pubic bone and secured with a Lapra-Ty. The anterior bladder neck was opened and the catheter visualized. This was displaced to the right by a very large eccentric median lobe. The catheter was suspended under the pubic bone with the fourth arm. The posterior bladder neck was incised, and the median lobe enucleated to include with the specimen. The posterior plane from prior dissection was entered. Incision of the posterior bladder neck was noted eveline remote from the ureteral orifices. The vasa and seminal vesicles were brought into the field. Then, the right prostatic pedicle was taken in packets with Weck clips. The nerve was spared. On the left side, the pedicle was taken with Weck clips. Nerve sparing was performed on this side as well. Then, the dorsal vein was incised to the urethra, which was identified and isolated. This was incised and transected. Residual rectourethralis was taken and the prostate was freed. The rectum was inspected and there was no sign of injury. The prostate was placed in a specimen bag. Hemostasis was achieved with small Weck clips on severalsmall vessels on the pedicles. The bladder neck was tapered in fish mouth fashion at 3 and 9 o'clock with 3-0 monocryl suture. A posterior reconstruction was performed with a 3-0 monocryl with a Lapra-Ty. The anastamosis was then performed with two interlocked 3-0 monocryl suture. Initially the posterior plate was brought together and secured with Lapra-Tys for a watertight appearance. The anastamosis was run superiorly on each side. This was tied at 12 o'clock. The catheter was irrigated and no leak was noted. The final catheter was placed and the balloon inflated. Repeat testing of the anastamosis noted a dry field. The insufflation was dropped to 8mmHg and no bleeding was noted. At this time, the assistant child care teacher port was closed with Abhijeet Thomasen technique and a drain was placed through the left lateral robotic trocar and placed in the pelvis. This was secured with a 2-0 prolene suture to the skin. The ports were removed under vision. The prostate was extracted through the camera port under vision. The fascia was closed with 0-vicryl suture in interrupted fashion. The skin incisions were closed with 4-0 monocryl suture and dermabond was applied. The rivera was secured to the patient's leg. The patient was woken from anesthesia and brought to the PACU in stable condition. He tolerated the procedure well. * OR Attestation - Quinn Paulson MD - 03/30/2014 1:45 PM EDT Attestation: Case Date: 03/30/2014 I was present and I participated during the entire procedure (does not need to include opening and closing). QUINN PAULSON MD 03/30/2014 * Brief Op Note - Too Connors - 03/30/2014 1:02 PM EDT Brief Operative Note Patient Name: Sheridan Bailey : [id number] MR#: [id number] Case Date: 03/30/2014 Surgeon: Surgeon(s) and Role: * Quinn Paulson MD - Primary * Too Connors MD - Resident-Surgeon Chief * Chad Wilcox MD - Resident-Surgeon Skip Preoperative diagnosis: PROSTATE CANCER Postoperative diagnosis: PROSTATE CANCER Procedure(s): @LAPAROSCOPIC PROSTATECTOMY, ROBOTICS ASSISTED Anesthesia: General Findings: 1. Bilateral nerve sparing RALP 2. No lymphadenectomy Complications: None Fluids: 2.7 L Estimated Blood Loss: 200 mL Drains: 16 Fr Rivera catheter and RADHA drain Disposition: awakened from anesthesia, extubated and taken to the recovery room in a stable condition, having suffered no apparent untoward event. Condition: doing well without problems (Please see the Surgical Encounter Summary for any Implant and Specimen details pertinent to this patient.) * Miscellaneous - Provider, Scanning - 03/30/2014 11:40 AM EDT * Loliscellaneous - Provider, Scanning - 03/30/2014 11:39 AM EDT documented in this encounter Plan of Treatment Upcoming Encounters Date Type Department Care Team (Late st Contact Info) Description 06/17/2024 10:20 AM EDT Office Visit Dermatology at [facility] [address] [place] [address] Erika Whiteside MD [facility] [address] [place] [address] documented as of this encounter Procedures Procedure Name Priority Date/Time Associated Diagnosis Comments SPECIMEN TO PATHOLOGY Routine 03/30/2014 9:28 AM EDT SURGICAL PATHOLOGY REPORT Routine 03/30/2014 9:27 AM EDT ROBOTIC LAPAROSCOPIC PROSTATECTOMY (WRVU 22.46) 03/30/2014 7:22 AM EDT PROSTATE CANCER documented in this encounter Results * Specimen to Pathology (surgical or derm) (03/30/2014 9:28 AM EDT) AP Specimen 03/30/2014 9:28 AM EDT 03/30/2014 9:28 AM EDT Narrative SHEELA LEHMAN - 03/30/2014 9:28 AM EDT Specimen requisition ordered. ??Separate Pathology report to follow Quinn Paulson MD PATHOLOGY/CYTOLOGY O R[facility]IELLA Performing Organization Address City/State/[facility] Co de Phone Number [facility] * Surgical Pathology Report (03/30/2014 9:27 AM EDT) Final Diagnosis ? [facility] ? Provider: ?? QUINN PAULSON ?Pt. Name: ?? SHERIDAN BAILEY ? Acc #: ?[id number] ?Pt. ? Col Date: ?? 03/30/2014 ? /Sex: ?1945,(69 years),Male ? Rec Date: ?? 03/30/2014 ? LOC: ?2WST ? SURGICAL PATHOLOGY ? ---Pathologic Diagnosis--- ? SPECIMEN TYPE: ? Radical Prostatectomy ? 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 HISTOLOGIC GRADE: ? Primary Pattern: ??Grade 3 ? Secondary Pattern: ??Grade 3 ? Total Hampton Score: ??6 ? LOCATION OF TUMOR: ? Right mid lobe ? TUMOR QUANTITATION: ? < 1% ? EXTRAPROSTATIC EXTENSION: ? Not identified ? SEMINAL VESICLE INVASION: ? Not identified ? MARGINS: ? Margins uninvolved by invasive carcinoma ? TREATMENT EFFECT: ? Not identified ? LYMPH-VASCULAR INVASION: ? Not identified ? PERINEURAL INVASION: ? Present ? PRIMARY TUMOR (pT): ? pT2a: Unilateral, involving one-half of 1 side or less ? REGIONAL LYMPH NODES (pN): ? pNX: Regional lymph nodes cannot be assessed ? DISTANT METASTASIS (pM): ? Not applicable ? ADDITIONAL PATHOLOGIC FINDINGS: ? High-grade prostatic intraepithelial neoplasia (PIN) ? Nodular prostatic hyperplasia ? Focal acute and chronic prostatitis ? TMRBLK: ??A37 ? [facility] ? Provider: ?? QUINN PAULSON ?Pt. Name: ?? SHERIDAN BAILEY ? Acc #: ?[id number] ?Pt. ? Col Date: ?? 03/30/2014 ? /Sex: ?1945,(69 years),Male ? Rec Date: ?? 03/30/2014 ? LOC: ?2WST ? SURGICAL PATHOLOGY ? CR-0 ? 04/02/14 ? ARS ? 04/03/14 Verified by: ? Doe WEST, Chun Bentley ? Pathologist ? (Electronic Signature) ? The attending pathologist whose signature appears on this report has ? reviewed all diagnostic slides and has edited the gross and/or ? microscopic portion of the report in rendering the final pathologic ? diagnosis. ? ---Microscopic Description--- ? Slides reviewed, microscopic description not recorded. ? Whole slide scan: ? [id number] ? ---Gross Description--- ? A - Labeled/Fixative: Prostate, fresh. ? Size/Weight: apex to base: 4.9 cm. ?transverse: 6.2 cm. ?anterior to posterior: 6.3 cm. ?weight: 49 g. ? Specimen Description: Prostatectomy with bilateral vas deferens and seminal ? vesicles ? Length of adnexa: Rt Seminal Vesicle: 3.0 x 1.5 x 0.6 cm. ? Lt Seminal Vesicle: 3.0 x 1.0 x 0.6 cm. ? Rt Vas Deferens: 4.5 x 0.5 cm. ? Lt Vas Deferens: 3.4 x 0.5 cm. ? Outer Surface: Brown, smooth and glistening. ? Cut Surface: Nodular with white discoloration on the right lobe of the ? prostate (approximately 10% involvement). ? The right half of the specimen is inked with Anahi ink and the left half ? with yellow ink. ??The prostate is serially sectioned from apex to base at ? 3-mm intervals. Sections of the transverse slices are submitted in the ? following sequence: ??Right anterior quadrant, right posterior quadrant, ? left anterior quadrant, and left posterior quadrant. ??Each seminal vesicle ? is serially sectioned longitudinally, and both sides are entirely ? submitted. The bilateral vas deferens margins are also submitted. ? [facility] ? Provider: ?? QUINN PAULSON ?Pt. Name: ?? SHERIDAN BAILEY ? Acc #: ?[id number] ?Pt. ? Col Date: ?? 03/30/2014 ? /Sex: ?1945,(69 years),Male ? Rec Date: ?? 03/30/2014 ? LOC: ?2WST ? SURGICAL PATHOLOGY ? (A1-2) bladder neck margin; (A3) apical anterior margin; (A4-5) apical ? posterior margin (A6) vas deferens margins; (A7-9) right seminal vesicle; ? (A10-11) left seminal vesicle; Slices II-XII are entirely submitted in the ? sequence of quadrants as noted above, as follows: ??(A12-15) slice II; (A16- ? 19) slice III; (A20-23) slice IV; ??(A24-27) slice V; (A28-31) slice ; ? (A32-35) slice VII; (A36-39) slice VIII; (A40-43) slice IX; (A44-47) slice ? X; (A48-51) slice XI; (A52-55) slice XII. ??(R12) ?? radha ? ---Clinical Information--- ? Specimen Submitted: ? A - Prostate ? Clinical History: ? Prostate cancer. ? Clinical Diagnosis: ? Prostate cancer. 04/03/2014 8:59 AM EDT [facility] PROSTATIC STRUCTURE / Unknown 03/30/2014 9:27 AM EDT 03/30/2014 9:27 AM EDT Quinn Paulson MD PATHOLOGY/CYTOLOGY Sera SULLIVAN Performing Organization Address City/State/[facility] Co de Phone Number [facility] [place] [phone] documented in this encounter Visit Diagnoses Not on filedocumented in this encounter Administered Medications Inactive Administered Medications - up to 3 most recent administrations Medication Order MAR Action Action Date Dose Rate Site acetaminophen (TYLENOL) tablet 1,000 mg 1,000 mg, Oral, EVERY 6 HOURS PRN, Starting on Sun03/30/14 at 1536, Until Sun03/31/14 at 1355, Pain, for MODERATE pain, Do not exceed 4,000 mg in 24 hours, Recovery (Recovery-Hospital Unit), Routine Given 03/31/2014 1:25 AM EDT 1,000 mg atorvastatin (LIPITOR) tablet 10 mg 10 mg, Oral, DAILY, First dose on Sun03/30/14 at 1800, Until Discontinued, Recovery (Recovery-Hospital Unit), Routine Given 03/31/2014 8:06 AM EDT 10 mg esomeprazole (NexIUM) capsule 40 mg 40 mg, Oral, DAILY, First dose on Sun03/30/14 at 1800, Until Discontinued, Omeprazole 20 mg originally ordered. Therapeutically substituted for Esomeprazole 40 mg once daily., Routine Given 03/31/2014 8:06 AM EDT 40 mg folic acid (FOLVITE) tablet 1,000 mcg 1,000 mcg (1 mg), Oral, DAILY, First dose on Sun03/30/14 at 1800, Until Discontinued, Recovery (Recovery-Hospital Unit), Routine Given 03/31/2014 8:06 AM EDT 1,000 mcg Given 03/30/2014 5:16 PM EDT 1,000 mcg ketorolac (TORADOL) injection 15 mg 15 mg, Intramuscular, EVERY 6 HOURS PRN, Starting on Sun03/30/14 at 1350, Until Sun03/31/14 at 1355, Pain, for MODERATE pain, Avoid if CrCl less than 50 ml/min. Do not administer with other NSAIDS., Recovery (Recovery-Hospital Unit), Routine Given 03/30/2014 9:01 PM EDT 15 mg lactated ringers infusion 100 mL/hr, Intravenous, CONTINUOUS, Starting on Sun03/30/14 at 1415, Until Sun03/31/14 at 1355, Recovery (Recovery-Hospital Unit) New Bag 03/31/2014 9:57 AM EDT 100 mL/hr 100 mL /hr New Bag 03/31/2014 12:00 AM EDT 100 mL/hr 100 mL/hr New Bag 03/30/2014 1:54 PM EDT 100 mL/hr 100 mL/hr losartan (COZAAR) tablet 50 mg 50 mg, Oral, DAILY, First dose on Sun03/30/14 at 1800, Until Discontinued, Avapro (Irbesartan) 150 mg originally ordered. Therapeutically substituted for Losartan., Routine Given 03/31/2014 8:06 AM EDT 50 mg oxyCODONE (ROXICODONE) immediate release tablet 5-10 mg 5-10 mg, Oral, EVERY 4 HOURS PRN, Starting on Sun03/30/14 at 1350, Until Sun03/31/14 at 1355, Pain, May repeat 5 mg in 60 minutes if pain not relieved., Recovery (Recovery-Hospital Unit), Routine Given 03/31/2014 11:21 AM EDT 10 mg Given 03/31/2014 1:25 AM EDT 10 mg sodium chloride 0.9 % flush 5 mL 5 mL, Intravenous, 2 TIMES DAILY, First dose on Sun03/30/14 at 2100, Until Discontinued, Recovery (Recovery-Hospital Unit), Routine Given 03/31/2014 8:07 AM EDT 5 mLs Given 03/30/2014 8:24 PM EDT 5 mLs documented in this encounter Active and Recently Administered Medications Times are shown in EDT. Scheduled Medication Order 03/29/2014 03/30/2014 03/31/2014 atorvastatin (LIPITOR) tablet 10 mg (CANCELED) 10 mg, Oral, DAILY, First dose on Sun03/30/14 at 1800, Until Discontinued, Recovery (Recovery-Hospital Unit), Routine 1800 (Not Given - Provider: Karlo Hendricks RN - Reason: Patient/family refused - Comment: Pt reported he took med this AM) 08 (Given - Provider: Spring oSsa RN) ceFAZolin (ANCEF) 2g in dextrose 5% 50 mL (COMPLETED) 2 g, Intravenous, ONCE, 1 dose, On Sun03/30/14 at 0645, Day of Surgery (Day of Procedure), Indication for (Active or Suspected): Prophylaxis 0748 (Given - Provider: Ubaldo Kelley MD) esomeprazole (NexIUM) capsule 40 mg (CANCELED) 40 mg, Oral, DAILY, First dose on Sun03/30/14 at 1800, Until Discontinued, Omeprazole 20 mg originally ordered. Therapeutically substituted for Esomeprazole 40 mg once daily., Routine 1800 (Not Given - Provider: Karlo Hendricks RN - Reason: Patient/family refused - Comment: Pt reported he took his omeprazole this AM) 08 (Given - Provider: Spring Sosa RN) folic acid (FOLVITE) tablet 1,000 mcg (CANCELED) 1,000 mcg (1 mg), Oral, DAILY, First dose on Sun03/30/14 at 1800, Until Discontinued, Recovery (Recovery-Hospital Unit), Routine 1716 (Given - Provider: Karlo Hendricks RN) 0806 (Given - Provider: Spring Sosa RN) losartan (COZAAR) tablet 50 mg (CANCELED) 50 mg, Oral, DAILY, First dose on Sun03/30/14 at 1800, Until Discontinued, Avapro (Irbesartan) 150 mg originally ordered. Therapeutically substituted for Losartan., Routine 1800 (Not Given - Provider: Karlo Hendricks RN - Reason: Patient/family refused - Comment: Pt took his Avapro this am) 0806 (Given - Provider: Spring Sosa, MELVIN) sodium chloride 0.9 % flush 5 mL (CANCELED) 5 mL, Intravenous, 2 TIMES DAILY, First dose on Sun03/30/14 at 2100, Until Discontinued, Recovery (Recovery-Hospital Unit), Routine 202 (Given - Provider: Arabella Cortez RN) 0807 (Given - Provider: Spring Sosa RN) Continuous Medication Order 03/29/2014 03/30/2014 03/31/2014 lactated ringers infusion (CANCELED) 100 mL/hr, Intravenous, CONTINUOUS, Starting on Sun03/30/14 at 1415, Until Sun03/31/14 at 1355, Recovery (Recovery-Hospital Unit) 1354 (New Bag - Provider: Deepa Thomas RN) 0000 (New Bag - Provider: Arabella Cortez RN)0957 (New Bag - Provider: Spring Sosa RN) PRN Medication Order 03/29/2014 03/30/2014 03/31/2014 acetaminophen (TYLENOL) tablet 1,000 mg 1,000 mg, Oral, EVERY 6 HOURS PRN, Starting on Sun03/30/14 at 1536, Until Sun03/31/14 at 1355, Pain, for MODERATE pain, Do not exceed 4,000 mg in 24 hours, Recovery (Recovery-Hospital Unit), Routine 0125 (Given - Provid er: Arabella Cortez RN) ibuprofen (ADVIL;MOTRIN) tablet 800 mg 800 mg, Oral, EVERY 6 HOURS PRN, Starting on Sun03/30/14 at 1536, Until Sun03/31/14 at 1355, Pain, for MODERATE pain, Do not administer with ketorolac, Recovery (Recovery-Hospital Unit), Routine ketorolac (TORADOL) injection 15 mg (CANCELED) 15 mg, Intramuscular, EVERY 6 HOURS PRN, Starting on Sun03/30/14 at 1350, Until Sun03/31/14 at 1355, Pain, for MODERATE pain, Avoid if CrCl less than 50 ml/min. Do not administer with other NSAIDS., Recovery (Recovery-Hospital Unit), Routine 210 (Given - Provider: Arabella Cortez, MELVIN) oxyCODONE (ROXICODONE) immediate release tablet 5-10 mg 5-10 mg, Oral, EVERY 4 HOURS PRN, Starting on Sun03/30/14 at 1350, Until Sun03/31/14 at 1355, Pain, May repeat 5 mg in 60 minutes if pain not relieved., Recovery (Recovery-Hospital Unit), Routine 0125 (Given - Provid er: Arabella Cortez RN)1121 (Given - Provider: Spring Sosa RN) documented in this encounter Care Teams Photographic Technician Relationship Specialty Start Date End Date Erika Shoemaker MD [address] [place] [phone] PCP - General 07/26/10 11/19/22 documented as of this encounter
--- OUTSIDE RECORDS SUMMARY | 2024-04-08 16:28 | XMS_ITS | Continuity of Care Document ---
Author Organization [facility] Address [address] [place] [address] Care Team Providers Care Salon Shampoo Assistant Name Role Phone Luis Carlos Del Real Primary Care Physician Encounter [facility]CT[facility]_OR Date(s): 11/18/22 - 11/18/[address] [phone] Discharge Disposition: Home or Self Care Attending Physician: Luis Carlos Del Real MD Admitting Physician: Luis Carlos Del Real MD Referring Physician: Luis Carlos Del Real MD Allergies, Adverse Reactions, Alerts No Known [...] Daily, # 90 tab, 3 Refill(s), Pharmacy: [id number] Start Date: 11/17/22 Status: Ordered folic acid 1 mg oral tablet 1 mg = 1 tab, Oral, Daily, # 90 tab, 0 Refill(s), Pharmacy: [id number] Start Date: 11/16/22 Status: Ordered irbesartan 150 mg oral tablet 150 mg = 1 tab, Oral, Daily, # 90 tab, 3 Refill(s), Pharmacy: [id number] Start Date: 11/17/22 Status: Ordered multivitamin adult, oral tablet 1 tab, Oral, Daily, # 90 tab, 0 Refill(s) Start Date: 08/21/22 Status: Ordered omeprazole 20 mg oral delayed release capsule 20 mg = 1 cap, Oral, Daily, # 90 cap, 3 Refill(s), Pharmacy: [id number] Start Date: 11/17/22 Status: Ordered Vitamin [...] 11/24/09 3Umbilical Results Laboratory List Name Date Automated Diff 11/18/22 CBC w/ Diff 11/18/22 Comprehensive Metabolic Panel (CMP) 11/18 Lipid Panel 11/18/22 PSA Diagnostic 11/18/22 Most recent to oldest [Reference Range]: 1 WBC [5.0-10.0 x10^3/mcL] 5.9 x10^3/mcL (11/18/22 7:59 AM) RBC [4.6-6.0 x10^6/mcL] 5.2 x10^6/mcL (11/18/22 7:59 AM) Neutro Auto [40.0-75.0 %] 67.7 % (11/18/22 7:59 AM) Lymph Auto [20.0-50.0 %] 18.9 % *LOW* (11/18/22 7:59 AM) Scurry Auto [2.0-15.0 %] 8.7 % (11/18/22 7:59 AM) Basophil Auto [0.0-1.0 %] 0.5 % (11/18/22 7:59 AM) BUN [7-18 mg/dL] 18 mg/dL (11/18/22 7:59 AM) Cholesterol Total [50-200 mg/dL] 114 mg/ dL (11/18/22 7:59 AM) LDL [0-130 mg/dL] 47 mg/dL (11/18/22 7:59 AM) Glucose Level [74-106 mg/dL] 105 mg/dL (11/18/22 7:59 AM) Potassium Level [3.5-5.1 mmol/L] 4.8 mmo l/L (11/18/22 7:59 AM) MCV [80.0-96.0] 97.5 *HI* (11/18/22 7:59 AM) HDL [40-60 mg/dL] 52 mg/dL (11/18/22 7:59 AM) AST [15-37 unit/L] 18 unit/L (11/18/22 7:59 AM) ALT [16-63 unit/L] 36 unit/L (11/18/22 7:59 AM) MCHC [31.0-35.0 g/dL] 32.2 g/dL (11/18/22 7:59 AM) Sodium Level [136-145 mmol/L] 141 mmol/L (11/18/22 7:59 AM) Hct [41.0-51.0 %] 50.9 % (11/18/22 7:59 AM) Triglycerides [0-150 mg/dL] 73 mg/dL (11/18/22 7:59 AM) Calcium Level [8.5-10.1 mg/dL] 9.8 mg/dL (11/18/22 7:59 AM) Albumin Level [3.4-5.0 g/dL] 3.8 g/dL (11/18/22 7:59 AM) Protein Total [6.4-8.2 g/dL] 7.5 g/dL (11/18/22 7:59 AM) MCH [26.0-32.0 pg] 31.4 pg (11/18/22 7:59 AM) Neutro Absolute 4.0 x10^3/mcL *NA* (11/18/22 7:59 AM) Bilirubin Total [0.2-1.0 mg/dL] 0.6 mg/d L (11/18/22 7:59 AM) Hgb [14.0-18.0 g/dL] 16.4 g/dL (11/18/22 7:59 AM) Alk Phos [46-146 unit/L] 104 unit/L (11/18/22 7:59 AM) Platelets [130-450 x10^3/mcL] 205 x10^3/ mcL (11/18/22 7:59 AM) CO2 [21-32 mmol/L] 28 mmol/L (11/18/22 7:59 AM) PSA Total Diagnostic [0.00-4.00 ng/mL] < 0.13 ng/mL (11/18/22 7:59 AM) eGFR Non-AA [>=60] 74 (11/18/22 7:59 AM) eGFR AA [>=60] 74 (11/18/22 7:59 AM) Chloride Level [98-107 mmol/L] 106 mmol/ L (11/18/22 7:59 AM) RDW-CV [11.5-17.0 %] 13.0 % (11/18/22 7:59 AM) Imm Gran Auto [0.0-0.9 %] 0.3 % (11/18/22 7:59 AM) Creatinine Level [0.70-1.30 mg/dL] 1.03 mg/dL (11/18/22 7:59 AM) Eos, Auto [1.0-6.0 %] 3.9 % (11/18/22 7:59 AM) Social History Social History Type Response Tobacco Former tobacco user Tobacco Use:. Quit 1977 per day. Sex Male Patient Care team information Care Team Personnel Name: Luis Carlos Del Real MD Position: Physician Member Role: Primary Care Physician Address: Address: [address] [place] [phone] [place] Care Team Related Persons Name: IGNACIO CHRIS
--- OUTSIDE RECORDS SUMMARY | 2024-04-08 16:28 | XMS_ITS | Encounter Summary ---
Author Organization [facility] [place] [address] Care Team Providers Care Manager Planning Name Role Phone Nick Woodard MD Primary Care Provider [phone] Encounter Details Date Type Department Care Team (Late st Contact Info) Description 03/30/2014 7:26 AM EDT Anesthesia Event [place] [phone] Collin Dockery MD [facility] [place] [address] Ubaldo Kelley MD [facility] [place] [address] Anesthesia Record Procedure Summary Procedure Name Responsible Anesthesiologist Anesthesia Start Time Anesthesia Stop Time ROBOTIC LAPAROSCOPIC PROSTATECTOMY (WRVU 22.46) (Bilateral: Pelvis) Collin Dockery MD 03/30/14 0726 03/30/14 1326 Events Date Time Event Comment 03/30/2014 0711 0725 AN Verify 0726 Start 0733 An Start Data 0739 An Induction 0743 An Intubation 0748 Anesthesia Ready 0803 Procedure Start 0813 Quick Note insuflation 1237 Quick Note bp Artifacts, S urgeon keeps Leaning on cuff; notified 1258 Procedure Stop 1312 Extubation/LMA Out 1312 an stop data 1326 Stop Meds Name Total Midazolam 2 mg fentaNYL 150 mcg lidocaine IV 20 mg propofol 200 mg Rocuronium 170 mg PHENYLephrine 1,240 mcg ondansetron 4 mg dexAMETHasone 4 mg ceFAZolin (ANCEF) 2g in dextrose 5% 50 m L 2 g esmolol 20 mg lactated ringers 2,000 mL lactated ringers 700 mL * Agents Name O2 Air N2O Isoflurane (et) * Blood No blood administrations on file. Lines, Drains, and Airways Type Details Placement Removal Incision 03/30/14; abdomen; laparoscopic punctures (specify) ((6)); 05/01/22 (LDA cleanup utility RA#[id number]); 1715 (LDA cleanup utility RA#[id number]) 03/30/14 0000 by Dany Rosas, RN 05/01/22 1715 by Kate Temple Drain/Device Site 03/30/14; Right; low er quadrant; collapsible closed device (19 Fr. Mikel drain); 03/31/14; 0930 03/30/14 0000 by Dany Rosas, RN 03/31/14 0930 by Spring Sosa RN (RETIRED) Peripheral IV Line - Single Lumen 03/30/14; 0715; metacarpal vein left (top of hand); ckae-urh-ypulvs catheter system; 18 gauge; Ryan Dela Cruz,MELVIN; intradermal injection, tolerated well, appears comfortable; 0; 12/17/17 (Auto removal via utility); 0921 (Auto removal via utility) 03/30/14 0715 by Ale Dela Cruz RN 12/17/17 0921 by Chau, User Urethral Catheter 03/30/14; 0756; indwelling double lumen catheter; latex, silicone coated; 18; inserted at this facility (by Dr. Paulson); 1; 10; 10; none; drainage bag to dependent drainage; 03/31/14; 1053 03/30/14 0756 by Dany Rosas, RN 03/31/14 1053 by Dontrell Lauren LNA (RETIRED) Peripheral IV Line - Single Lumen basilic vein left (medial side of arm); 18 gauge; chico; 12/17/17 (Auto removal via utility); 0921 (Auto removal via utility) 03/30/14 0803 by 12/17/17 0921 by Moneylib, User NG/OG Tube orogastric; 16 Fr; mouth; 03/30/14; 1317 (not present on arrival to PACU) 03/30/14 0803 by 03/30/14 1317 by Deepa Ibarra RN ETT Mask Ventilation: Ea sy (1); ETT Type: Cuffed; ETT Size: 8 mm; Mac Blade: 4; Attempts: 1; Laryngoscopy Grade: 2; ETT Placement Verified By: Auscultation, Capnometry, Visual; Secured at Teeth: 21 cm; Inserted by: dasha; Removal Date: 03/30/14; Removal Time: 131103/30/14 0804 by 03/30/14 1312 by Ubaldo Kelley MD documented in this encounter Social History Tobacco Use Types Packs/Day Years [...] AM EDT documented as of this encounter OR Notes * Anesthesia Postprocedure Evaluation - Ubaldo Kelley MD - 03/30/2014 5:55 PM EDT Patient: Sai Bailey Procedure(s) Performed: Procedure(s): @LAPAROSCOPIC PROSTATECTOMY, ROBOTICS ASSISTED Actual Anesthetic: general Patient location: floor Post-op pain: Adequate analgesia Post-op nausea: no nausea or vomiting Last Vitals: Filed Vitals: 03/30/14 1719 BP: 144/85 Pulse: 107 Temp: 37 ??C (98.6 ??F) Resp: 17 Post-op cardiovascular and respiratory status: is stable Level of consciousness: awake, alert and oriented Complications: no apparent complications and tolerated the procedure well Fluid Status: normal Doing great, no pain or nausea * Anesthesia Preprocedure Evaluation - Ubaldo Kelley MD - 03/29/2014 2:11 PM EDT Images from the original note were not included. Pre-Anesthesia Evaluation for: Sai Bailey a 69 y.o. male. Procedure(s): @LAPAROSCOPIC PROSTATECTOMY, ROBOTICS ASSISTED There are no active problems to display for this patient. No past medical history on file. No past surgical history on file. History Substance Use Topics ??? Smoking status: Former Smoker Quit date: 02/20/1976 ??? Smokeless tobacco: Never Used ??? Alcohol Use: 4.2 oz/week 7 Shots of liquor per week History Drug Use No No Known Allergies Medications: MAR and/or home medications have been reviewed. Physical Exam: There were no vitals filed for this visit. There is no height or weight on file to calculate BMI. Airway Assessment: Mallampati: II TM distance: >3 FB Neck ROM: full Cardiovascular Assessment: cardiovascular exam normal Pulmonary Assessment: pulmonary exam normal Dental Assessment: Misc Assessment: Patient is wearing No contact(s). IV access: Peripheral line Anesthesia Plan: ASA 3 general, Assessment: Sai Bailey is a 69 y.o. male with a PMH significant for hypertension, hyperlipidemia, hiatal hernia, GERD, diverticulosis, obesity, anemia, h/o syncope, polycythemia, and BPH who is scheduled for a robotic prostatectomy for prostate CA. Hgb: 12.2 Plt: 214 Creatinine: 0.93 K: 4.3 EKG: NSR Npo confirmed Anesthetic history: never had GA Plan: - GETA - Special Monitoring/Lines: possible 2nd IV and A-line - Concerns: - Anesthesia consent signed - Consented for blood transfusions - Code Status: Full code The risks and benefits of our anesthesic plan and viable alternatives were discussed with the patient including the risks of blindness, hypotension, arrythmia and the extremely rare risk of or awareness under anesthesia. All of the patient's questions were answered. Informed Consent: Anesthetic plan and risks discussed with patient. Use of blood products discussed with patient whom consented to blood products. Plan discussed with attending. Misc. Assessment: documented in this encounter Plan of Treatment Upcoming Encounters Date Type Department Care Team (Late st Contact Info) Description 06/17/2024 10:20 AM EDT Office Visit Dermatology at [facility] [address] [place] [phone] Nick Whiteside MD [facility] [address] RAJESH [place] [address] documented as of this encounter Visit Diagnoses Not on filedocumented in this encounter Administered Medications Inactive Administered Medications - up to 3 most recent administrations Medication Order MAR Action Action Date Dose Rate Site ceFAZolin (ANCEF) 2g in dextrose 5% 50 mL 2 g, Intravenous, ONCE, 1 dose, On Sun03/30/14 at 0645, Day of Surgery (Day of Procedure), Indication for (Active or Suspected): Prophylaxis Given 03/30/2014 7:48 AM EDT 2 g dexamethasone (DECADRON) injection PRN, Starting on Sun03/30/14 at 0820, Until Sun03/30/14 at 1326, Anesthesia Intra-op, Routine Given 03/30/2014 8:20 AM EDT 4 mg esmolol (BREVIBLOC) injection PRN, Starting on Sun03/30/14 at 1319, Until Sun04/08/14 at 1658, Anesthesia Intra-op, Routine Given 03/30/2014 1:19 PM EDT 20 mg fentaNYL 50mcg/mL injection PRN, Starting on Sun03/30/14 at 0733, Until Sun03/30/14 at 1326, Pain, Anesthesia Intra-op, Routine Given 03/30/2014 9:58 AM EDT 50 mcg Given 03/30/2014 7:33 AM EDT 100 mcg lactated ringers infusion CONTINUOUS PRN, Starting on Sun03/30/14 at 0726, Until Sun03/30/14 at 1326, Anesthesia Intra-op New Bag 03/30/2014 11:59 AM EDT mL New Bag 03/30/2014 9:13 AM EDT mL New Bag 03/30/2014 7:26 AM EDT mL lactated ringers infusion CONTINUOUS PRN, Starting on Sun03/30/14 at 0748, Until Sun03/30/14 at 1326, Anesthesia Intra-op New Bag 03/30/2014 7:48 AM EDT mL lidocaine (PF) (XYLOCAINE) 100 mg/5 mL (2 %) injection PRN, Starting on Sun03/30/14 at 0736, Until Sun03/30/14 at 1326, Anesthesia Intra-op, Routine Given 03/30/2014 7:36 AM EDT 20 mg midazolam (PF) (VERSED) 1 mg/mL injection PRN, Starting on Sun03/30/14 at 0726, Until Sun03/30/14 at 1326, Sleep, Anesthesia Intra-op, Routine Given 03/30/2014 7:26 AM EDT 2 mg ondansetron (ZOFRAN) injection PRN, Starting on Sun03/30/14 at 1318, Until Sun04/08/14 at 1658, Nausea, Anesthesia Intra-op, Routine Given 03/30/2014 1:18 PM EDT 4 mg PHENYLephrine HCl in NS (PF) (ELOY-SYNEPHRINE) 0.8 mg/10 mL (80 mcg/mL) injection Syrg PRN, Starting on Sun03/30/14 at 0756, Until Sun03/30/14 at 1326, Anesthesia Intra-op, Routine Given 03/30/2014 12:31 PM EDT 120 mcg Given 03/30/2014 11:46 AM EDT 160 mcg Given 03/30/2014 11:41 AM EDT 80 mcg propofol (DIPRIVAN) 10 mg/mL bolus injection (Anesthesia) PRN, Starting on Sun03/30/14 at 0739, Until Sun03/30/14 at 1326, Anesthesia Intra-op Given 03/30/2014 7:39 AM EDT 200 mg rocuronium (ZEMURON) injection PRN, Starting on Sun03/30/14 at 0739, Until Sun03/30/14 at 1326, Anesthesia Intra-op, Routine Given 03/30/2014 11:34 AM EDT 20 mg Given 03/30/2014 10:29 AM EDT 30 mg Given 03/30/2014 9:46 AM EDT 20 mg documented in this encounter Care Teams Manager Planning Relationship Specialty Start Date End Date Nick Woodard MD [address] [place] [phone] PCP - General 07/26/10 11/19/22 documented as of this encounter
--- OUTSIDE RECORDS SUMMARY | 2024-04-08 16:28 | XMS_ITS | Encounter Summary ---
Author Organization [facility] [place] [address] Care Team Providers Care Grapple Skidder Operator Name Role Phone Nick Woodard MD Primary Care Provider [phone] Encounter Details Date Type Department Care Team (Late st Contact Info) Description 02/19/2014 10:40 AM EDT Clinical Support [facility] [place] [phone] Social History Tobacco Use Types Packs/Day Years [...] - Respiratory Rate - - Oxygen Saturation 98% 02/19/2014 10:29 AM EDT Inhaled Oxygen Concentration - - Weight - - Height - - Body Mass Index - - documented in this encounter Progress Notes * Cleo Ernst RN - 02/19/2014 10:58 AM EDT PAT questionnaire reviewed with patient and while in Pre Admission testing. Given [place] Advance Directives booklet. Patient states has instructions from surgeons office regarding preoperative bowel prep. Pre-operative teaching booklet reviewed. Patient verbalizes a good understanding of all information. PLAN Testing: Blood work, EKG while in PAT, then sent to radiology for chest x-ray. Special medication instructions: Has been instructed to stop his Asprirn 7-10 days before surgery. Procedure date: 03/30/2014 documented in this encounter Plan of Treatment Upcoming Encounters Date Type Department Care Team (Late st Contact Info) Description 06/17/2024 10:20 AM EDT Office Visit Dermatology at [place] [address] [place] [phone] Nick Whiteside MD [facility] [place] RAJ[place] [address] documented as of this encounter Visit Diagnoses Not on filedocumented in this encounter Care Teams Grapple Skidder Operator Relationship Specialty Start Date End Date Nick Woodard MD [address] [place] [phone] PCP - General 07/26/10 11/19/22 documented as of this encounter
--- OUTSIDE RECORDS SUMMARY | 2024-04-08 16:28 | XMS_ITS | Encounter Summary ---
Author Organization Formerly [facility] [place] [address] Care Team Providers Care City Administrator Name Role Phone Erika Shoemaker MD Primary Care Provider [phone] Encounter Details Date Type Department Care Team (Late st Contact Info) Description 03/30/2014 7:30 AM EDT - 03/30/2014 11:58 AM EDT Surgery [place] [id number] Quinn Paulson MD [facility] [place] [address] ROBOTIC LAPAROSCOPIC PROSTATECTOMY (WRVU 22.46) Social History Tobacco Use Types Packs/Day Years [...] longer draining. The number for questions is [phone] before 5 PM weekdays and [phone] after 5 PM and weekends. Activity level: [...] 4-6 weeks for PSA check. Please call [phone] (clinic number for appointments) to confirm date [...] Sheridan Bailey Patient Age: 69 y.o. Language: Lao Race: White Ethnicity: Not nor Admit date: [...] Hospital Course: Patient was admitted electively to [facility] via the same day surgery program and [...] longer draining. The number for questions is [phone] before 5 PM weekdays and [phone] after 5 PM and weekends. Activity level: [...] 4-6 weeks for PSA check. Please call [phone] (clinic number for appointments) to confirm date and time of your appointment if you do not receive it in 2-3 days. General Instructions None Future Appointments and Orders Future Appointments: Provider: Department: Dept Phone: Center: 04/07/2014 11:00 AM Testing Urology Urology [phone] [facility] 04/07/2014 11:20 AM Quinn Paulson MD Urology [phone] [facility] Follow-Up: Future Appointments Date Time Provider Department Center 04/07/2014 11:00 AM Urology, Testing [facility] 04/07/2014 11:20 AM Quinn Paulson MD [facility] Primary Care Provider: ERIKA SHOEMAKER MD [phone] Follow-up Recommendations for Providers: Please see discharge [...] was managed by the Urology Team at [facility]. If you have any questions or concerns, please feel free to contact us. Provider Contact Information: Urology Clinic: [facility] (after business hours): * Plan of Care [...] mg IV toradol 0130-Pt with increased pain 8/10. Administered 10 mg Oxycodone as well as 1000 mg tylenol * Op Note - Quinn Paulson MD - 03/30/2014 1:57 PM EDT [facility] Operative Note Patient Name: Sheridan Bailey : [id number] MR#: [id number] Case Date: 03/30/2014 Surgeon: Surgeon(s) and Role: [...] the mid left abdomen, and a 10mm professional nursing assistant port placed several cm superior to the [...] bleeding was noted. At this time, the professional nursing assistant port was closed with Abhijeet Thomasen technique [...] Operative Note Patient Name: Sheridan Bailey : [id number] MR#: [id number] Case Date: 03/30/2014 Surgeon: Surgeon(s) and Role: [...] Scanning - 03/30/2014 11:40 AM EDT * Miscellaneous - Provider, Scanning - 03/30/2014 11:39 AM EDT documented in this encounter Plan of Treatment Upcoming Encounters Date Type Department Care Team (Late st Contact Info) Description 06/17/2024 10:20 AM EDT Office Visit Dermatology at [facility] [address] [place] [address] Erika Whiteside MD [facility] RAJESH [place] [address] documented as of this encounter Procedures Procedure [...] to follow Quinn Paulson MD PATHOLOGY/CYTOLOGY O RDERABLES Performing Organization Address City/State/[facility] Co ma Phone Number [facility] * Surgical Pathology Report (03/30/2014 9:27 AM EDT) Final Diagnosis ? [facility] ? Provider: ?? QUINN PAULSON ?Pt. Name: ?? SHERIDAN BAILEY ? Acc #: ?[id number] ?Pt. ? Col Date: ?? 03/30/2014 ? /Sex: ?1945,(69 years),Male ? Rec Date: ?? 03/30/2014 ? LOC: ?2WST ? SURGICAL PATHOLOGY ? ---Pathologic Diagnosis--- ? SPECIMEN TYPE: ? Radical Prostatectomy ? 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 HISTOLOGIC GRADE: ? Primary Pattern: ??Grade 3 ? Secondary Pattern: ??Grade 3 ? Total Whitmore Score: ??6 ? LOCATION OF TUMOR: ? [...] and chronic prostatitis ? TMRBLK: ??A37 ? [facility] ? Provider: ?? QUINN PAULSON ?Pt. Name: ?? SHERIDAN BAILEY ? Acc #: ?[id number] ?Pt. ? Col Date: ?? 03/30/2014 ? [...] recorded. ? Whole slide scan: ? [id number] ? ---Gross Description--- ? A - [...] vas deferens margins are also submitted. ? [facility] ? Provider: ?? QUINN PAULSON ?Pt. Name: ?? SHERIDAN BAILEY ? Acc #: ?[id number] ?Pt. ? Col Date: ?? 03/30/2014 ? [...] 9:27 AM EDT Quinn Paulson MD PATHOLOGY/CYTOLOGY O R[facility] [place] [address] documented in this encounter Visit Diagnoses Not on filedocumented in this encounter Active and Recently Administered Medications Times are shown in EDT. Scheduled Medication Order 03/29/2014 03/30/2014 03/31/2014 atorvastatin (LIPITOR) tablet 10 mg (CANCELED) 10 mg, Oral, DAILY, First dose on Sun03/30/14 at 1800, Until Discontinued, Recovery (Recovery-Hospital Unit), Routine 1800 (Not Given - Provider: Karlo Hendricks RN - Reason: Patient/family refused - Comment: Pt reported he took med this AM) 0806 (Given - Provider: Spring Sosa RN) ceFAZolin (ANCEF) 2g in dextrose 5% [...] reported he took his omeprazole this AM) 0806 (Given - Provider: Spring Sosa RN) folic [...] Comment: Pt took his Avapro this am) 08 (Given - Provider: Spring Sosa RN) sodium chloride 0.9 % flush 5 mL (CANCELED) 5 mL, Intravenous, 2 TIMES DAILY, First dose on Sun03/30/14 at 2100, Until Discontinued, Recovery (Recovery-Hospital Unit), Routine 2023 (Given - Provider: Arabella Cortez RN) 0807 [...] Unit), Routine 210 (Given - Provider: Arabella Cortez RN) oxyCODONE (ROXICODONE) immediate release tablet 5-10 mg 5-10 mg, Oral, EVERY 4 HOURS PRN, Starting on Sun03/30/14 at 1350, Until Sun03/31/14 at 1355, Pain, May repeat 5 mg in 60 minutes if pain not relieved., Recovery (Recovery-Hospital Unit), Routine 0125 (Given - Provid er: Arabella Cortez RN)1121 (Given - Provider: Spring Sosa RN) documented in this encounter Care Teams City Administrator Relationship Specialty Start Date End Date Erika Shoemaker MD [address] [place] [phone] PCP - General 07/26/10 11/19/22 documented as of this encounter
== END 2024-04-08 16:24 | disposition home or self-care (01) ==
LOC: LBO 16:25
PROVIDERS: PCP Physician Assistant; Visit Provider Podiatrist
DX: Z01.818 Encounter for other preprocedural examination (principal)
CPT/HCPCS: 36415; 80053; 99214; 85025

== ENCOUNTER 2024-05-19 08:30 | Day surgery (SDC) | payer MEDICARE, BC, SELFPAY ==
--- NOTE | 2024-05-19 | DI.RAD_ITS ---
Exam(s) XR FOOT LT LIMITED EXAM: XR FOOT LT LIMITED CLINICAL HISTORY: Hammertoe of left foot. TECHNIQUE: 2D and realtime digital imaging was performed. COMPARISON: No exams were available for comparison FINDINGS: Please see procedure note for details. Fluoro time: 4.6seconds RADIATION DOSE DELIVERED: izaiah Mallory=0.1 mGy
--- NOTE | 2024-05-19 | DI.RAD_ITS ---
Exam(s) XR FOOT LT COMPLETE EXAM: XR FOOT LT COMPLETE CLINICAL HISTORY: Post op. TECHNIQUE: 2D digital imaging was performed. COMPARISON: CR XR FOOT LT COMPLETE from 03/17/2024 FINDINGS: 3 views No evidence of fracture or diastasis of the Lisfranc joint. Mild degenerative changes in the great t oe metatarsophalangeal joint. There is slight flattening of the head of the 2nd metatarsal, unchange d. No increased density at this level nor joint space narrowing. There are minimal if any significa nt degenerative changes in the foot. No inferior calcaneal spur nor posterior enthesophytes. Bone d ensity normal. No osseous lesions. IMPRESSION: As above but no acute osseous findings in the foot. No significant radiographic change compared to 0 03/17/2024 images DATA REPOSITORY: RADIATION DOSE DELIVERED:
[2024-05-19 08:47] VITALS: BP 156/79; PULSE 74; RESP 16; TEMP 36; O2SAT 98
[2024-05-19] MEDS: Lactated Ringers 1,000 ML 30 ML IV (09:01)
--- NOTE | 2024-05-19 09:10 | ANES.PREOP_ITS ---
General Info Date of Service Date Performed: 05/19/24 Height: 5 ft 9 in Weight: 103.1 kg Body Mass Index (BMI): 33.5 Surgical Procedure: Operation Date: 05/19/24 09:10 Proposed Procedure Side Surgeon p Arthroplasty & Exostectomy 5th Toe Left Foot Left Rachel Calloway DPM Meds Allergies and Home Medications Allergies Allergy/AdvReac Type Severity Reaction Status Date / Time No Known Allergies Allergy Verified 05/19/24 08:45 Home Medication ?Medication ?Instructions ?Recorded atorvastatin 10 mg tablet 10 mg PO DAILY 06/22/20 cholecalciferol (vitamin D3) 25 400 unit PO DAILY 06/22/20 mcg (1,000 unit) tablet (Vitamin D3) folic acid 1 mg tablet 1 mg PO DAILY 06/22/20 irbesartan 150 mg tablet 150 mg PO DAILY 06/22/20 [id number] 1 tab PO DAILY 06/22/20 tablet (Multivitamin 50 Plus tablet) omeprazole 20 mg capsule,delayed 20 mg PO DAILY 06/22/20 release aspirin 81 mg capsule,delayed 81 mg PO DAILY 06/23/20 release cyanocobalamin (vitamin B-12) 100 100 mcg PO DAILY 06/25/20 mcg tablet Current Visit Medications: Current Medications Generic Name Dose Route Start Last Admin Trade Name Freq PRN Reason Stop Dose Admin Ringer's Solution 1,000 mls @ 30 mls/hr 05/19/24 06:00 05/19/24 09:01 IV 06/15/24 23:59 30 mls/hr INFUSION WARREN Administration Cefazolin Sodium/Dextrose 2 gm in 50 mls @ 100 mls/hr 05/19/24 06:00 Ancef Duplex IVPB 05/19/24 16:00 PREOP WARREN IV Miscellaneous Supplies 1 each 05/19/24 06:00 Iv Access IV 06/15/24 23:59 DIRECTED WARREN Sodium Chloride 0 ml 05/19/24 06:00 Normal Saline Flush 10 Ml Syr IV 06/15/24 23:59 PRN PRN Sodium Chloride 0 ml 05/19/24 06:00 Normal Saline 10 Ml Vial IJ 06/15/24 23:59 DIRECTED PRN Sterile Water 0 ml 05/19/24 06:00 Water,Injection,Sterile 10 Ml Vial IJ 06/15/24 23:59 DIRECTED PRN PFSH Active Problems Active Problems: Problem Status Onset Code Pain in left foot Acute M79.672 Corns and callosities Acute L84 Hammertoe of left foot Acute M20.42 Hyperlipemia Acute E78.5 Iron deficiency anemia Acute D50.9 Hypertensive disorder Chronic I10 Impaired glucose tolerance Acute R73.02 Diverticulosis Acute K57.90 Medical History Medical History External hemorrhoids Blood chemistry abnormality Low back pain Epidermoid cyst of skin Calculus of kidney and ureter Diverticula of colon Diaphragmatic hernia Anemia Obesity Neoplasm of uncertain behavior of prostate Surgical History Surgical History Nuclear sclerotic cataract of left eye Cortical cataract of left eye History of cataract surgery Nuclear sclerotic cataract of right eye Cortical cataract of right eye Hx of colonoscopy H/O hernia repair History of prostatectomy Tobacco Smoking/Tobacco Use Status: Former Tobacco Use Alcohol Alcohol Intake: current Alcohol intake frequency: a few times a week Alcohol type: hard liquor Substance Use Substance use: Never Substance use type: does not use Vital Signs and Lab Results Vital Signs Most Recent Vital Signs in EMR: Most Recent Vital Signs Temp Pulse Resp BP Pulse Ox 36 C L 74 16 156/79 H 98 05/19/24 08:47 05/19/24 08:47 05/19/24 08:47 05/19/24 08:47 05/19/24 08:47 Lab Results Blood Type / Crossmatch: No Data to Display Complete Blood Count: No Data to Display Complete Metabolic Panel: 2 No Data to Display Liver Function Panel: No Data to Display Coagulation Panel: No Data to Display Cardiac Panel: No Data to Display Arterial Blood Gas: No Data to Display Venous Blood Gas: No Data to Display Pancreas Panel: No Data to Display Thyroid Panel: No Data to Display Infectious Disease: No Data to Display Blood Cultures: No Data to Display Toxicology Panel: No Data to Display Anesthesia Assessment and Plan Anesthesia History Personal History: No History of Anesthesia Complications Family History: No Family History of Anesthesia Complications Exercise Tolerance Exercise Tolerance: Metabolic Equivalents>4 Pertinent Negatives Pertinent Negatives: No Symptoms of GERD Cardiac & Pulmonary Exam Cardiac Exam: Normal S1/S2 Heart Sounds Pulmonary Exam: Clear Bilateral Breath Sounds Implantable Cardiac Device Does patient have a Pacemaker or an ICD?: No Airway Exam Known Difficult Airway: No Mallampati Class: 2 Mouth Opening: Normal (> 3cm) Thyromental Distance: Greater than 3 cm Neck Range of Motion: Full ROM Neck Circumference: Normal Teeth Condition: Normal Dentition ASA Classification ASA Score: ASA 2 Emergency Case?: No NPO Status NPO Status: NPO Clears >2 hours, Solids >8 hours Anesthesia Plan Resuscitation Status: Full Code Anesthesia Technique: General Anesthesia Airway Planned: Natural Airway Monitors Used: Standard Monitors
[2024-05-19 09:17] VITALS: BMI 33.5
[2024-05-19] MEDS: ceFAZolin 2 GM/50 ML BAG IVPB (09:30)
[2024-05-19] MEDS: Lidocaine 1% Pres-Free 30 ML VIAL (09:52)
[2024-05-19] MEDS: Bupivacaine 0.25% Pres-Free 30 ML VIAL (09:54)
--- NOTE | 2024-05-19 10:12 | W.PM.DSUDISC ---
Date of service: 05/19/24 Time of Service: 10:13 Discharge Plan Disposition Patient Disposition: Home Condition: Stable Discharge Details Attending Provider: Rachel Calloway Primary Care Provider: Jan Will Home Meds and New Rx's Prescriptions: No Action oxycodone-acetaminophen [Percocet] 7.5-325 mg tablet 1 tab PO Q8H MDD 3 tabs 3 Days Qty: 9 0RF atorvastatin 10 mg tablet 10 mg PO DAILY Patient Comments: TAKE ONE TABLET BY MOUTH EVERY DAY omeprazole 20 mg capsule,delayed release(DR/EC) 20 mg PO DAILY Patient Comments: TAKE ONE CAPSULE BY MOUTH EVERY DAY folic acid 1 mg tablet 1 mg PO DAILY Patient Comments: TAKE ONE TABLET BY MOUTH EVERY DAY irbesartan 150 mg tablet 150 mg PO DAILY Patient Comments: TAKE ONE TABLET BY MOUTH EVERY DAY Multivitamin 50 Plus Tablet 1 tab PO DAILY cholecalciferol (vitamin D3) [Vitamin D3] 25 mcg (1,000 unit) Tablet 400 unit PO DAILY aspirin 81 mg Capsule,Delayed Release(Dr/Ec) 81 mg PO DAILY cyanocobalamin (vitamin B-12) 100 mcg Tablet 100 mcg PO DAILY Discharge Instructions Additional Instructions: Please keep your dressings clean, dry and intact. Apply ice behind the ankle and behind the knee for 10 minutes on 20 minutes off [id number]. Apply a bag over the foot for showers. Do not let the dressings get wet. Follow-up on . Stand Alone Forms: Podiatry Instructions-DSU Activity:: Elevate Remove Dressings/Wound Care:: Do Not Remove Shower/Bathe:: Cover Diet:: Normal Diet Discharge Orders Discharge Orders: Discharge Order (Routine); Ordered 05/19/24 Ordered By: Rachel Calloway DS: Diagnosis Discharge Diagnosis (1) Hammertoe of left foot: Status: Acute (2) Corns and callosities: Status: Acute (3) Pain in left foot: Status: Acute
[2024-05-19 10:13] VITALS: BP 120/99; PULSE 70; RESP 16; TEMP 36.9; O2SAT 96
--- NOTE | 2024-05-19 10:15 | ROE_ITS ---
Date of service: 05/19/24 Time of Service: 10:15 Operative Note Operative Note DATE OF PROCEDURE: 05/19/24 PRE-OP DIAGNOSIS: Hammertoe, left fifth toe. Corns and callosities. Pain in left foot POST-OP DIAGNOSIS: same PROCEDURE: Arthroplasty, left fifth toe SURGEON: Rachel Calloway ANESTHESIA TYPE: Local By Surgeon (10 mL 1% lidocaine plain preop) Refer to Anesthesia Record ESTIMATED BLOOD LOSS: 0 COMPLICATIONS: None Patient was transported to: same day Patient's condition: stable Indications: 79-year-old male patient with pain to the left fifth toe with a painful corn to the distal medial tip with the corn abutting the fourth toe at the head of the proximal phalanx of the fourth. Patient has exhausted all conservative treatment modalities at this point and wishes to proceed with surgery. I discussed the procedure consisting of arthroplasty of the left fifth toe and possible exostectomy/arthroplasty of the left fourth toe. Patient was advised that if the fifth toe arthroplasty alone helps eliminate the problem of the corn I would not recommend arthroplasty of the fourth toe and the decision will be made intraoperatively. Patient understood and agreed. I discussed all the risks, benefits, possible complications of the procedure including but not limited to pain, nerve pain, recurrence of the deformity, inadequate correction, flail toe, floating toe, infection, hematoma, seroma, need for further surgery or amputation, DVT, PE, stroke, IN or with anesthesia. Patient understands and assumes all risks. No guarantees or warranties were made or implied. Medical clearance in. Consent form signed and reviewed. No contraindication to the procedure. Procedure Description: Patient was identified in preop holding. Site was marked. Patient was brought to the operating room suite placed on the operating table in supine position with the anesthesia team. Upon induction of general anesthesia, local anesthesia was obtained using 10 mL of 1% lidocaine plain preoperatively. Left ankle tourniquet was applied. The left lower extremity was then scrubbed, prepped and draped in the usual aseptic manner. Attention was then directed to the dorsal aspect of the left fifth toe where an elliptical incision was planned to help derotate the adductovarus toe. Using a sterile #15 blade and the inc ision was then made and deepened through the skin and subcutaneous tissue the redundant skin was passed from the operative field. Next, using a sterile #15 blade a capsulotomy was performed transversely at the head of the proximal phalanx the tendon was retracted dorsally distally, the head of the proximal phalanx was then freed of all soft tissue attachments. Next, using a bone cutter the head of the proximal phalanx was resected and passed from the operative field. Intraoperative images were taken to assess for reduction. Using a bone rasp, all sharp edges were smoothed out. Incision site was then flushed with copious amounts of sterile saline. 4-0 Vicryl was used to reapproximate the tendon capsule structures and reapproximate the subcuticular tissue. The skin was then reapproximated and coapted using 4-0 nylon. At this time the fifth toe was noted to be straight and not abutting the left fourth toe and the decision was made against an arthroplasty of the left fourth toe. The tourniquet was deflated. Dressings were then applied with Xeroform gauze, 4 x 4, Kerlix and an Mg wrap. Surgical shoe was applied. Patient tolerated the procedure and anesthesia well with vital signs stable and vascular status intact to the left foot. Patient was then transferred to the PACU for further monitoring. To be discharged when day surgery criteria met. Patient is to keep his dressings clean, dry and intact. He is to keep the left lower extremity elevated at all times. Will benefit from ice behind the ankle and behind the popliteal fossa tendons on 20 minutes off [id number]. Patient is to follow-up in office on .
[2024-05-19 10:37] VITALS: BP 145/85; PULSE 65; RESP 16; TEMP 36.1; O2SAT 98
--- NOTE | 2024-05-19 12:42 | W.ANESPOSTOP ---
Postoperative Evaluation Date, Time and Location Date Performed: 05/19/24 Time Performed: 10:45 Patient Location: Day Surgery Unit Vital Signs Most Recent Imported Vital Signs: Most Recent Vital Signs Temp Pulse Resp BP Pulse Ox 36.1 C L 65 16 145/85 H 98 05/19/24 10:37 05/19/24 10:37 05/19/24 10:37 05/19/24 10:37 05/19/24 10:37 Pain Score Most Recent Pain Score: Most Recent Pain Score Pain Level 0 05/19/24 10:37 Assessment Mental Status: Awake (Alert & Oriented to Patient Baseline) Airway and Respiratory Function: Patent airway with normal (patient baseline) respiratory exam Cardiovascular Function: Hemodynamically Stable Hydration Status: Adequately Hydrated Nausea & Vomiting: No Nausea or Vomiting Pain: Pt. Denies Any Pain Peripheral Nerve Block: Patient did not receive a nerve block
== END 2024-05-19 10:55 | disposition home or self-care (01) ==
PROVIDERS: PCP Physician Assistant; Visit Provider Podiatrist
PROC: (CPT 28285; principal; 2024-05-19 09:00)
DX: M20.42 Other hammer toe(s) (acquired), left foot (principal); L84 Corns and callosities; M79.672 Pain in left foot
CPT/HCPCS: 28285; 00123; 76000; 73620; 73630; J0665; J0690; J2001; J2405; J2704

== ENCOUNTER → 2024-05-22 09:33 | Outpatient (BNVA) | payer MEDICARE, BC, SELFPAY | PROVIDERS: PCP Physician Assistant; Referring Provider Physician Assistant; Visit Provider Podiatrist | DX: Z98.890 Other specified postprocedural states (principal); M20.42 Other hammer toe(s) (acquired), left foot; M79.672 Pain in left foot; L84 Corns and callosities | CPT/HCPCS: 99024 ==

== ENCOUNTER 2024-05-22 11:42 | Outpatient (CLI) | payer MEDICARE, BC, SELFPAY ==
--- NOTE | 2024-05-22 09:45 | DI.RAD_ITS ---
Exam(s) XR FOOT LT COMPLETE EXAM: XR FOOT LT COMPLETE CLINICAL HISTORY: post op M79.672 PAIN LEFT FOOT M20.42 HAMMER TOE. TECHNIQUE: 2D digital imaging was performed. Three views. COMPARISON: CR XR FOOT LT COMPLETE from 03/17/2024 CR XR FOOT LT COMPLETE from 05/19/2024 XA XR FOOT LT LIMITED from 05/19/2024 FINDINGS: BONES: Stable appearance osteotomy of the distal aspect of the proximal phalanx of the little toe. N o acute fracture is present. No bony destructive lesion is seen. JOINTS: No dislocation present. Minimal degenerative changes. SOFT TISSUE: Gauze around the little toe. IMPRESSION: Stable postsurgical appearance of the proximal phalanx of the little toe. DATA REPOSITORY: RADIATION DOSE DELIVERED:
== END 2024-05-22 12:02 ==
LOC: DI 11:42
PROVIDERS: PCP Physician Assistant; Visit Provider Podiatrist
DX: M79.672 Pain in left foot (principal); Z98.890 Other specified postprocedural states
CPT/HCPCS: 73630

== ENCOUNTER → 2024-05-27 10:24 | Outpatient (BNVA) | payer MEDICARE, BC, SELFPAY | PROVIDERS: PCP Physician Assistant; Referring Provider Physician Assistant; Visit Provider Podiatrist | DX: Z98.890 Other specified postprocedural states (principal); M20.42 Other hammer toe(s) (acquired), left foot; M79.672 Pain in left foot; L84 Corns and callosities | CPT/HCPCS: 99024 ==

== ENCOUNTER → 2024-06-18 08:51 | Outpatient (BNVA) | payer MEDICARE, BC, SELFPAY | PROVIDERS: PCP Physician Assistant; Referring Provider Physician Assistant; Visit Provider Podiatrist | DX: Z98.890 Other specified postprocedural states (principal); M20.42 Other hammer toe(s) (acquired), left foot; M79.672 Pain in left foot; L84 Corns and callosities | CPT/HCPCS: 99024 ==

== ENCOUNTER → 2024-07-09 14:00 | Outpatient (BNVA) | payer MEDICARE, BC, SELFPAY | PROVIDERS: PCP Physician Assistant; Referring Provider Physician Assistant; Visit Provider Podiatrist | DX: Z98.890 Other specified postprocedural states (principal); M20.42 Other hammer toe(s) (acquired), left foot; M79.672 Pain in left foot; L84 Corns and callosities | CPT/HCPCS: 99024 ==

== ENCOUNTER → 2024-11-05 08:13 | Outpatient (BNVA) | payer MEDICARE, BC, SELFPAY | PROVIDERS: PCP Physician Assistant; Referring Provider Physician Assistant; Visit Provider Podiatrist | DX: Z98.890 Other specified postprocedural states (principal); M20.42 Other hammer toe(s) (acquired), left foot; M79.672 Pain in left foot; L84 Corns and callosities | CPT/HCPCS: 99213 ==

== ENCOUNTER 2025-04-29 01:15 | Outpatient (CLI) | payer MEDICARE, BC, SELFPAY ==
--- NOTE | 2025-04-29 07:00 | DI.RAD_ITS ---
Exam(s) XR FOOT RT COMPLETE EXAM: XR FOOT RT COMPLETE CLINICAL HISTORY: Right foot pain,m79.671. TECHNIQUE: 2D digital imaging was performed of the right foot. Three images were obtained. AP, oblique and lateral views were obtained. COMPARISON: There are no priors for comparison. FINDINGS: BONES: No acute fracture is present. No bony destructive lesion is seen. JOINTS: No dislocation present. The joint spaces are well maintained. SOFT TISSUE: Normal. IMPRESSION: No acute abnormality. DATA REPOSITORY: RADIATION DOSE DELIVERED:
== END 2025-04-29 01:35 ==
LOC: DI 01:15
PROVIDERS: PCP Physician Assistant; Visit Provider Podiatrist
DX: M79.671 Pain in right foot (principal)
CPT/HCPCS: 73630

== ENCOUNTER → 2025-06-10 10:43 | Outpatient (BNVA) | payer MEDICARE, BC, SELFPAY | PROVIDERS: PCP Physician Assistant; Referring Provider Physician Assistant; Visit Provider Podiatrist | DX: M72.2 Plantar fascial fibromatosis (principal); B35.1 Tinea unguium; B35.3 Tinea pedis; R26.89 Other abnormalities of gait and mobility; M67.01 Short Achilles tendon (acquired), right ankle; M79.671 Pain in right foot | CPT/HCPCS: 99213 ==